=== PATIENT | male | born 1965 | race Caucasian/White ===

== ENCOUNTER 2023-06-27 18:56 | Emergency (ER) | payer BC, OTHER ==
[~2023-06-27] VITALS: Ht 170.2 cm; Wt 70.4 kg
[2023-06-27] MEDS ORDERED: KETOROLAC TROMETH 30 MG/ML 1ML VIAL IV ONE (19:15)
[2023-06-27] MEDS ORDERED: METOCLOPRAMIDE HCL 5MG/ml INJ 2ml VIAL IV ONE (19:15)
[2023-06-27] MEDS ORDERED: SODIUM CHLORIDE 0.9% 1,000 ML IVB ONE (19:15)
[2023-06-27 19:46] LABS: Basophils # (auto) 0.1 10 ^3/uL (0-0.2); Eosinophils # (auto) 0.1 10 ^3/uL (0-0.8); Eosinophils % (auto) 0.8 % (0.0-7.0); White Blood Cell 8.1 10^3/uL (4.4-10.8)
[2023-06-27 19:48] LABS: Basophils % (auto) 1.3 % (0.0-2.0); Hematocrit 24.1 % (41.0-53.0); Lymphocytes # (auto) 1.6 10 ^3/uL (0.4-5.4); Lymphocytes % (auto) 19.2 % (10.0-50.0); Mean Corpuscular Hemoglobin 16.4 pg (28.0-32.0); Mean Corpuscular Hgb Conc. 28.4 g/dL (32.0-36.0); Mean Corpuscular Volume 57.7 fL (80.0-100.0); Monocytes # (auto) 0.7 10 ^3/uL (0-1.3); Neutrophils # (auto) 5.7 10 ^3/uL (1.6-8.6); Neutrophils % (auto) 70.7 % (37.0-80.0); Nucleated Red Blood Cells % 0.1 %; Red Blood Cells 4.17 10^6/uL (4.5-5.90); Red Cell Distribution Width 19.5 % (11.8-14.3)
[2023-06-27 19:54] LABS: Hemoglobin 6.8 g/dL (13.5-17.5)
[2023-06-27 20:06] LABS: Alanine Aminotransferase 12 U/L (7-40); Albumin 4.3 g/dL (3.2-4.8); Alkaline Phosphatase 69 U/L (46-116); Anion Gap 6 (5-15); Aspartate Aminotransferase 22 U/L (13-40); BUN/Creatinine Ratio 20.7 (10.0-20.0); Blood Urea Nitrogen 18 mg/dL (9-23); Calcium 9.4 mg/dL (8.7-10.4); Carbon Dioxide 25 mmol/L (20-30); Chloride 108 mmol/L (98-107); Glucose 92 mg/dL (74-106); INR 1.08 (0.9-1.15); Lipase 49 U/L (12-53); Partial Thromboplastin Time 23.2 SEC (24.5-34.5); Potassium 4.3 mmol/L (3.5-5.1); Prothrombin Time 11.3 sec (9.3-11.8); Sodium 139 mmol/L (136-145)
[2023-06-27 20:07] LABS: Bilirubin, Total 0.3 mg/dL (0.2-1.0); Total Protein 6.7 g/dL (5.7-8.2)
[2023-06-27] MEDS ORDERED: MORPHINE SULFATE INJ 2 MG/ml SYRG IV ONE ×2 (20:15→23:30)
[2023-06-27 20:24] LABS: Anisocytosis Slight; Platelet Estimate Increased
[2023-06-27 20:25] LABS: Hypochromia Marked; Ovalocytes FEW; Tear Drop Cells FEW
[2023-06-27] MEDS ORDERED: PIPERACILLIN-TAZOB 3.375GM 100 ML IV ONE (20:45)
[2023-06-27 21:31] VITALS: PULSE 65; RESP 12; O2SAT 100
[2023-06-27] MEDS ORDERED: MORPHINE SULFATE 4 MG/ML SYR/VIAL IV ONE (23:15)
[2023-06-27] MEDS ORDERED: ONDANSETRON HCL 4 MG/2 ML VIAL IV ONE (23:15)
[2023-06-28] VITALS (13 sets, daily range): BP systolic 94–107; BP diastolic 52–66; PULSE 53–65; RESP 9–20; TEMP 97.8–98.3; O2SAT 96–98
[2023-06-28] MEDS ORDERED: MORPHINE SULFATE INJ 2 MG/ml SYRG IV ONE (06:15)
[2023-06-28] MEDS ORDERED: ONDANSETRON HCL 4 MG/2 ML VIAL IV ONE (06:15)
[2023-06-28] MEDS ORDERED: ONDANSETRON HCL 4 MG/2 ML VIAL IV PRN (08:45)
[2023-06-28] MEDS ORDERED: MORPHINE SULFATE INJ 2 MG/ml SYRG IV PRN (08:45)
[2023-06-28] MEDS ORDERED: SODIUM CHLORIDE 0.9% 1,000 ML IV ONE ×2 (08:45)
[2023-06-28] MEDS ORDERED: HYDROcodone-ACET 5/325MG TAB PO ONE (11:00)
== END 2023-06-28 11:15 | disposition short-term general hospital (02) ==
LOC: ER 18:56
DX: K56.609 Unspecified intestinal obstruction, unspecified as to partial versus complete obstruction (principal); Z98.84 Bariatric surgery status
CPT/HCPCS: 36415; 36430; 74176; 80053; 82270; 83605; 83690; 84484; 85025; 85610; 85730; 86850; 86900; 86901; 86920; 96361; 96365; 96366; 96375; 96376; 99285; J1885; J2270; J2405; J2543; J2765; P9016

== ENCOUNTER → 2023-08-11 | Emergency (ER) | payer BC | END | disposition left against medical advice (07) | LOC: ER 17:05 | DX: R39.198 Other difficulties with micturition (principal); Z53.21 Procedure and treatment not carried out due to patient leaving prior to being seen by health care provider ==

== ENCOUNTER 2024-03-07 15:12 | Emergency (ER) | payer BC, MEDICARE ==
[~2024-03-07] VITALS: Ht 170.2 cm; Wt 88.0 kg
[~2024-03-07 15:12] MED LIST: BUPR200T49 PO; BUSP7.5T8 PO; CYCL-614 PO; HYDR-4072 PO; PANT40T PO; TERB250T92 PO; TOPI50TA53 PO
[2024-03-07 16:28] VITALS: BP 122/86; PULSE 75; RESP 18; TEMP 98.9; O2SAT 100
== END 2024-03-07 16:31 | disposition home or self-care (01) ==
LOC: ER 15:12
DX: S62.114A Nondisplaced fracture of triquetrum [cuneiform] bone, right wrist, initial encounter for closed fracture (principal); Z98.890 Other specified postprocedural states; Z87.442 Personal history of urinary calculi; W01.0XXA Fall on same level from slipping, tripping and stumbling without subsequent striking against object, initial encounter; Y93.89 Activity, other specified; Y92.89 Other specified places as the place of occurrence of the external cause; Y99.8 Other external cause status
CPT/HCPCS: 29125; 73110

== ENCOUNTER 2024-09-18 07:23 | Emergency (ER) | payer BC ==
[~2024-09-18] VITALS: Ht 170.2 cm; Wt 85.7 kg
[2024-09-18 08:02] VITALS: BP 119/62; PULSE 72; RESP 21; TEMP 98.6; O2SAT 98
--- NOTE | 2024-09-18 08:26 | ED.PDOC ---
Musculoskeletal HPI Comments A 58 YEAR OLD MALE PRESENTS TO THE ED WITH CHIEF COMPLAINT OF LEFT SHOULDER PAIN. PATIENT REPORTS THAT HE HAS BEEN EXPERIENCING LEFT SHOULDER PAIN AFTER PULLING ON A FENCE POST YESTERDAY. PATIENT RELAYS THAT HE ISN'T ABLE TO LIFT HIS ARM AND BELIEVES HE MAY HAVE INJURED HIS ROTATOR CUFF AND HE HAD A SIMILAR INJURY TO THE RIGHT ROTATOR CUFF THAT REQUIRED SURGICAL CORRECTION. PATIENT DENIES ANY NUMBNESS, WEAKNESS, FALL, HEAD INJURY, OR ARM PAIN. NO FURTHER COMPLAINTS OR SYMPTOMS DURING TREATMENT. Chief Complaint: Upper Extremity Time Seen by MD: 08:21 Primary Care Provider: STACEY Villegas Notes: Nurses Notes, Medications, Allergies Allergies: Coded Allergies: NO KNOWN ALLERGIES (Unverified , 09/04/23) Home Meds Reported Medications Terbinafine Hcl (Terbinafine Hcl) 250 Mg Tab, 1 TAB PO UD 09/04/23 Hydrocodone-Acetaminophen (Hydrocodone/Acetaminophen 10-325 mg) 1 Tab Tab, 1 TAB PO Q6HP PRN for PAIN SCALE 7 THRU 10, TAB 09/04/23 Bupropion Hcl (Bupropion Hcl Er) 200 Mg Tab, 1 TAB PO BID 09/04/23 Topiramate (Topiramate) 50 Mg Tab, 1 TAB PO BID 09/04/23 Cyclobenzaprine HCl (Cyclobenzaprine Hydrochlo) 5 Mg Tab, 1 TAB PO DAILYP PRN 09/04/23 Buspirone Hcl (Buspirone Hcl) 7.5 Mg Tab, 1 TAB PO BID 09/04/23 Pantoprazole Sodium Sesquihydr (Pantoprazole Sodium) 40 Mg Tab, 1 TAB PO BID 09/04/23 Information Source: Patient Mode of Arrival: Ambulatory Location: Left Extremity Location: Shoulder Timing: Days Prehospital treatment: None Severity: Moderate Able to Move Extremity: No Bear Weight: Fully Pain: Moderate Mechanism: Hyperextension Circumstances: Spontaneous Onset of Symptoms: After Exercise Symptoms: Pain DVT Risk Factors: NONE Last Tetanus: UTD History of: Shoulder Operation Associated signs and symptoms: Shoulder pain Past Medical History PAST MEDICAL HISTORY: Kidney Stones Surgical History: Hernia Repair Surgical History (Other): RT ROTATOR CUFF SURGERY Family History Family History: Reviewed,noncontributory to illness Social History Smoker: Non-Smoker Alcohol: Denies ETOH Use Drugs: Denies Drug Use Lives In: Home Constitutional: denies: chills, diaphoresis, fatigue, fever, malaise, sweats, weakness, others EENTM: denies: blurred vision, double vision, ear bleeding, ear discharge, ear drainage, ear pain, ear ringing, eye pain, eye redness, hearing loss, mouth pain, mouth swelling, nasal discharge, nose bleeding, nose congestion, nose pain, photophobia, tearing, throat pain, throat swelling, voice changes, others Respiratory: denies: cough, hemoptysis, orthopnea, SOB at rest, shortness of breath, SOB with excertion, stridor, wheezing, others Cardiovascular: denies: chest pain, dizzy spells, diaphoresis, Dyspnea on exertion, edema, irregular heart beat, left arm pain, lightheadedness, palpitations, PND, syncope, others Gastrointestinal: denies: abdomen distended, abdominal pain, blood streaked bowels, constipated, diarrhea, dysphagia, difficulty swallowing, hematemesis, melena, nausea, poor appetite, poor fluid intake, rectal bleeding, rectal pain, vomiting, others Genitourinary: denies: burning, dysuria, flank pain, frequency, hematuria, incontinence, penile discharge, penile sore, pain, testicle pain, testicle swelling, urgency, others Neurological: denies: dizziness, fainting, headache, left sided numbness, left sided weakness, numbness, paresthesia, pre-existing deficit, right sided numbness, right sided weakness, seizure, speech problems, tingling, tremors, weakness, others Musculoskeletal: reports: joint pain, muscle pain, others (LEFT SHOULDER PAIN); denies: back pain, gout, joint swelling, muscle stiffness, neck pain Integumetry: denies: bruises, change in color, change in hair/nails, dryness, laceration, lesions, lumps, rash, wounds, others Allergic/Immunocompromised: denies: Difficulty Healing, Frequent Infections, Hives, Itching, others Hematologic/Lymphatic: denies: anemia, blood clots, easy bleeding, easy bruising, swollen glands, others Endocrine: denies: excessive hunger, excessive sweating, excessive thirst, excessive urination, flushing, intolerance to cold, intolerance to heat, unexplained weight gain, unexplained weight loss, others Psychiatric: denies: anxiety, bipolar disorder, depression, hopeless, panic disorder, schizophrenia, sleepless, suicidal, others All Other Systems: Reviewed and Negative Physical Exam General Appearance: No Apparent Distress, Normal HEENT: Normal ENT Inspection, PERRL/EOMI Neck: Full Range of Motion, Non-Tender, Normal, Normal Inspection Respiratory: Chest Non-Tender, Lungs Clear, No Accessory Muscle Use, No Respiratory Distress, Normal Breath Sounds Cardiovascular: No Edema, No JVD, No Murmur, No Gallop, Normal Peripheral Pulses, Regular Rate/Rhythm Breast Exam: Deferred Gastrointestinal: No Organomegaly, Non Tender, No Pulsatile Mass, Normal Bowel Sounds, Soft Genitalia: Deferred Pelvic: Deferred Rectal: Deferred Extremities: Decreased range of motion, No calf tenderness, Normal capillary refill, Normal inspection, No pedal edema, Tender (LEFT SHOULDER, NO BONY TE NDERNESS, SWELLING AND DEFORMITY. ROM DECREASING. ) Musculoskeletal : Apperance: Normal Neurologic: Alert, doctor of naturopathic medicine II-XII nml as Tested, No Motor Deficits, Normal Affect, Normal Mood, No Sensory Deficits Cerebellar Function: Normal Reflexes: Normal Skin: Dry, Normal Color, Warm Peripheral Pulses: 2+ carotid (R), 2+ carotid (L) Lymphatic: No Adenopathy Was a procedure done? Was a procedure done?: No Differential Diagnosis EXT Differential Diagnosis: Fracture, Sprain, Dislocation, Contusion, Strain, Bursitis X-Ray, Labs, Meds, VS Vital Signs Date Time Temp Pulse Resp B/P (MAP) Pulse Ox O2 Delivery O2 Flow Rate FiO2 09/18/24 08:02 98.6 72 21 119/62 (81) 98 98.6 09/18/24 08:02 72 21 98 Room Air 09/18/24 07:55 98.6 72 21 119/62 (81) 98 98.6 X-Ray, Labs, Meds, VS Comment EXTERNAL MEDICAL RECORDS REVIEWED: 03/07/24 FRACTURE OF RT WRIST INDEPENDENT HISTORIANS: [NONE] SOCIAL DETERMINANTS OF HEALTH: [NONE] LABS ORDERED: NONE REVIEWED AND INTERPRETED RESULTS: LEFT SHOULDER XR INTERPRETED BY ME. NO ACUTE FINDINGS. NO FRACTURES OR DISLOCATION. PENDING RADIOLOGIST REPORT. IMAGING ORDERED: LT SHOULDER XR TREATMENTS ORDERED: PT DECLINED PAIN MEDICATION AND RX. HE HAS PAIN MEDICATION AT HOME. PROCEDURES PERFORMED: NONE CRITICAL CARE TIME: NONE I HAVE DISCUSSED THE PATIENT WITH THE ATTENDING PHYSICIAN DR. MCKENZIE AND HE AGREES WITH THE PATIENT'S PLAN OF CARE AND DISPOSITION. BASED ON HISTORY OF PRESENT ILLNESS, AND PHYSICAL EXAM, PATIENT WILL BE DISCHARGED HOME. DISCUSSED PLAN FOR DISCHARGE HOME. SHARED DECISION MAKING: DISCUSSED WITH PATIENT THAT THEIR WORKUP WAS NORMAL. PATIENT INSTRUCTED TO FOLLOW UP WITH PRIMARY CARE PROVIDER IN 1-2 DAYS FOR RE- EVALUATION OF SYMPTOMS. PATIENT VERBALIZES UNDERSTANDING TO RETURN TO ED FOR NEW OR WORSENING SYMPTOMS OR IF FOLLOW UP WITH PCP CANNOT BE OBTAINED. PATIENT FEELS COMFORTABLE GOING HOME AT THIS TIME. ALL QUESTIONS ADDRESSED AT TIME OF DISCHARGE. Images Reviewed?: Images reviewed and evaluated by me Time of 1ST Reevaluation: 08:35 Reevaluation 1ST: Unchanged Patient Education/Counseling: Diagnosis, Treatment, Need For Follow Up Family Education/Counseling: Diagnosis, Treatment, No Family Present Medical Screening: No EMC Exist At This Time Departure 1 Departure Time of Disposition: 08:36 Impression: Primary Impression: Internal derangement of left shoulder Disposition: 01 HOME / SELF CARE / HOMELESS Condition: Stable Additional Instructions: FOLLOW-UP WITH PCP IN 1 TO 2 DAYS. TAKE MEDICATIONS PRESCRIBED. RETURN TO ED FOR ANY NEW OR WORSENING SYMPTOMS. Discharged With: Self Critical Care Note Critical Care Time?: No Stability Stability form required: No Heart Score Heart Score: Heart Score Response (Comments) Value History N/A 0 EKG N/A 0 Age N/A 0 Risk Factors N/A 0 Troponin N/A 0 Total 0 I personally scribed for LISSETTE SUMMERS ([email or web address]) on 09/18/24 at 08:26. Electronically submitted by Lg Peters ([email or web address]). I personally scribed for LISSETTE SUMMERS ([email or web address]) on 09/18/24 at 08:29. Electronically submitted by Lg Peters ([email or web address]). I personally scribed for LISSETTE SUMMERS ([email or web address]) on 09/18/24 at 08:31. Electronically submitted by Lg Peters ([email or web address]). LISSETTE SUMMERS Sep 18, 2024 08:26
--- NOTE | 2024-09-18 08:44 | DVH ---
CLINICAL INDICATION: Trauma TECHNIQUE: 3 radiographic views of the left shoulder were obtained. Comparison: None FINDINGS/IMPRESSION: There is no evidence of acute fracture or dislocation. The visualized joint space is well maintained. The alignment is anatomical. There is no radiopaque foreign body.
== END 2024-09-18 08:40 | disposition home or self-care (01) ==
LOC: ER 07:23
DX: M24.812 Other specific joint derangements of left shoulder, not elsewhere classified (principal); Z98.890 Other specified postprocedural states; Z79.899 Other long term (current) drug therapy
CPT/HCPCS: 73030

== ENCOUNTER 2024-12-20 23:52 | Inpatient (IN) | payer BC, MEDICARE ==
[~2024-12-20] VITALS: Ht 170.2 cm; Wt 89.3 kg
[2024-12-21] VITALS (9 sets, daily range): BP systolic 102–123; BP diastolic 50–74; PULSE 50–80; RESP 14–18; TEMP 97.8–98.3; O2SAT 95–97
[2024-12-21] MEDS: SODIUM CHLORIDE 0.9% 1,000 ML IVB ONE (00:15)
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
[2024-12-21 00:36] LABS: Hematocrit 32.8 % (41.0-53.0); Hemoglobin 10.5 g/dL (13.5-17.5); Mean Corpuscular Hemoglobin 22.7 pg (28.0-32.0); Mean Corpuscular Volume 71.0 fL (80.0-100.0); Nucleated Red Blood Cells % 0.0 %
[2024-12-21] MEDS: IOHEXOL 300 MG/ML 100ML BOTTLE IJ ONE (00:49)
[2024-12-21 00:57] LABS: Alanine Aminotransferase 14 U/L (7-40); Albumin 4.5 g/dL (3.2-4.8); Alkaline Phosphatase 95 U/L (46-116); Anion Gap 10 (5-15); BUN/Creatinine Ratio 27.8 (10.0-20.0); Calcium 8.7 mg/dL (8.7-10.4); Carbon Dioxide 23 mmol/L (20-31); Glucose 99 mg/dL (74-106); Lipase 50 U/L (12-53); Potassium 4.3 mmol/L (3.5-5.1); Sodium 141 mmol/L (136-145); Total Protein 7.0 g/dL (5.7-8.2)
[2024-12-21 00:58] LABS: Bilirubin, Total 0.3 mg/dL (0.2-1.0); Blood Urea Nitrogen 25 mg/dL (9-23); Chloride 108 mmol/L (98-107)
[2024-12-21] MEDS: ONDANSETRON HCL 4 MG/2 ML VIAL IV ONE (01:18)
[2024-12-21] MEDS: HYDROmorphone HCL 2 MG/ML VL/or syr IV ONE (01:28)
--- NOTE | 2024-12-21 01:41 | DVH ---
Exam: CT CT AB PEL WITH IV CON ONLY History: abd pain COMPARISON: None Technique: Multidetector spiral CT of the abdomen and pelvis was performed from lung bases to pubic s ymphysis. Intravenous contrast was administered during this examination. Portal venous imaging was obtained. Axial, coronal and sagittal multiplanar reformats were performed by the technologist on a separate workstation. Radiation Dose : 1. Abdomen/Pelvis: CTDIvol 18 mGy, DLP 1137 mGy*cm. CONTRAST: Type of contrast: Omnipaque Contrast injected: 100 ml Findings: Lung Bases: No acute or significant lung base finding. Normal heart size. No pleural or pericardial effusion. Liver: The liver is normal in size. No focal lesions. Normal hepatic vascular enhancement. Gallbladder and Biliary Tree: Unremarkable Spleen: Unremarkable Pancreas: The pancreas is normal in appearance without focal lesions or abnormal enhancement. Adrenal Glands: Unremarkable Kidneys: No hydronephrosis. Bladder: Unremarkable Bowel: Patulous esophagus. Postsurgical changes are seen around the stomach. Multiple dilated loops o f small bowel are seen in the abdomen with probable transition point at the level of a large ventral hernia in the lower midline abdomen. The appendix is not visualized; however, no secondary findings of acute appendicitis identified. Ascites: Absent Lymphadenopathy: No mesenteric, retroperitoneal or periportal lymphadenopathy. Abdominal Wall and Mesentery: Large ventral hernia in the lower midline abdomen which contains multip le dilated loops of small bowel. Postsurgical mesh is seen throughout the anterior abdominal wall. Vasculature: The visualized abdominal aorta is normal in size and caliber. Abdominal and pelvic vess els demonstrate normal enhancement. Pelvic Organs: Unremarkable Musculoskeletal: No aggressive focal bony lesions, acute fractures or dislocation. IMPRESSION: 1. Small-bowel obstruction with probable transition point at the level of the large ventral hernia in the lower midline abdomen. Radiation optimization: All CT scans at this facility use at least one of these dose optimization diego hniques: automated exposure control mA and/or kV adjustment per patient size (includes targeted exam s where dose is matched to clinical indication) or iterative reconstruction.
--- NOTE | 2024-12-21 02:19 | DVHHPRES ---
History of Present Illness Resident Creating Document: OSMAR LLANES RESIDENT History of Present Illness Neal Brooks is a 59 year-old male patient past medical history of anxiety, depression kidney stone, iron-deficiency anemia restless leg syndrome, multiple abdominal surgery for ventral hernia repair, Daniela-en-Y gastric bypass surgery, status post stent for enteral stricture into the ED with a complaint of diffuse abdominal pain predominantly in the infraumbilical area since 8:00 p.m. with nausea and vomiting and 2 episodes of diarrhea. Patient stated that he was completely or light and had an normal bowel movement in the morning after that few 2 episodes of diarrhea and started having diffuse abdominal pain which is colicky in nature 10 out of 10 localized associated with frequent vomiting every 20 minutes, contains the food material, nausea getting worse that prompted this visit. Denies chest pain, shortness of breath, palpitation, blurred vision, dysuria, hematuria or any recent traveling history. Past medical history: Depression, UTIs, kidney stones, iron deficient anemia, anxiety, depression, restless leg syndrome, ventral hernia repair in 16 opportunities last surgery done in 2006 which required removal of mesh due to MRSA infection, have not resolved hernia since patient was morbidly obese, hence Daniela-en-Y gastric bypass was indicated before completing new surgery (weight in 2017 325 pounds, currently weighs 190 pounds). stricture and gastro ileal anastomosis with placement of stent in May 2023, new distal enteral stricture with placement of stent in 12/2023 Surgical history: Hernia repair in 16 opportunities, Daniela-en-Y gastric bypass, stent placement and gastric ileal anastomosis on 05/2023 and 12/2023 Family history: Noncontributory Social history: Denies tobacco, alcohol and other drug abuse Allergies: Denies Home medication: Bupropion 200 mg p.o. twice daily, buspirone 7.5 mg p.o. twice daily, cyclobenzaprine 5 mg p.o. daily as needed, hydrocodone as needed, pantoprazole 40 mg twice daily, terbinafine 250 mg p.o. daily, topiramate 50 mg p.o. twice daily. PCP: Dr. Vargas Past Medical History Depression, UTIs, kidney stones, iron deficient anemia, anxiety, depression, restless leg syndrome, Past Surgical History Hernia repair in 16 opportunities, Daniela-en-Y gastric bypass, stent placement and gastric ileal anastomosis on 05/2023 and 12/2023 Family History Recently daughter diagnosed with Omar-Danlos syndrome by genetic testing. Past Social History Lives with family Nonsmoker, nonalcoholic and never tried any drugs Review of Systems Constitutional: No: Fever, Chills, Sweats, Weakness, Malaise, Other Eyes: No: Pain, Vision change, Conjunctivae inflammation, Eyelid inflammation, Other, Redness ENT: No: Ear pain, Ear discharge, Nose pain, Nose discharge, Nose congestion, Mouth pain, Mouth swelling, Throat pain, Throat swelling, Other Respiratory: No: Cough, Dry, Shortness of breath, SOB with excertion, Wheezing, Hemoptysis, Pleuritic Pain, Sputum, Wheezing, Other Cardiovascular: No: Chest Pain, Palpitations, Orthopnea, Paroxysmal Noc. Dyspnea, Edema, Lt Headedness, Other Gastrointestinal: Nausea, Vomiting, Abdominal Pain, Diarrhea; No: Constipation, Melena, Hematochezia, Other Genitourinary: No Dysuria, No Frequency, No Incontinence, No Hematuria, No Retention, No Other Musculoskeletal: No: other, neck pain, shoulder pain, arm pain, back pain, hand pain, leg pain, foot pain Skin: No: Rash, Lesions, Jaundice, Bruising, Other Neurological: No: Weakness, Numbness, Incoordination, Change in speech, Confusion, Seizures, Other Allergies: Coded Allergies: NO KNOWN ALLERGIES (Unverified , 09/04/23) Exam Vital Signs Vital Signs Date Time Temp Pulse Resp B/P (MAP) Pulse Ox O2 Delivery O2 Flow Rate FiO2 12/21/24 01:28 74 18 120/64 12/21/24 01:22 98.0 97 98.0 Exam Physical examination: General Appearance: Alert, Oriented X3, Cooperative, No acute distress HEENT: Atraumatic, PERRLA, EOMI, Mucous membrane moist/pink Respiratory: Clear to auscultation, Normal air movement Cardiovascular: Regular rate, Normal S1, Normal S2, No murmurs, no chest wall tenderness Abdominal: 2 Large ventral hernias, midline laparotomy incision brian from previous surgery, sluggish bowel sounds, Soft, No tenderness, No hepatospenomegaly. Extremities: No clubbing, No cyanosis, No edema, Normal pulses, No tenderness/swelling Skin: No rashes, No breakdown, No significant lesion Neuro: Normal gait, Normal speech, Strength at 5/5 X4 ext, Normal tone, Sensation intact, Cranial nerves 3-12 NL, Reflexes 2+ Psych/Mental Status: Mental status NL, Mood NL Labs/Xrays Labs Test 12/21/24 00:23 Range/Units White Blood Count 6.6 4.4-10.8 10^3/uL Red Blood Count 4.61 4.5-5.90 10^6/uL Hemoglobin 10.5 L 13.5-17.5 g/dL Hematocrit 32.8 L 41.0-53.0 % Mean Corpuscular Volume 71.0 L 80.0-100.0 fL Mean Corpuscular Hemoglobin 22.7 L 28.0-32.0 pg Mean Corpuscular Hemoglobin Concent 31.9 L 32.0-36.0 g/dL Red Cell Distribution Width 18.6 H 11.8-14.3 % Platelet Count 400 140-450 10^3/uL Mean Platelet Volume 7.5 6.9-10.8 fL Neutrophils (%) (Auto) 79.2 37.0-80.0 % Lymphocytes (%) (Auto) 13.1 10.0-50.0 % Monocytes (%) (Auto) 5.8 0.0-12.0 % Eosinophils (%) (Auto) 0.4 0.0-7.0 % Basophils (%) (Auto) 1.5 0.0-2.0 % Neutrophils # (Auto) 5.3 1.6-8.6 10 ^3/uL Lymphocytes # (Auto) 0.9 0.4-5.4 10 ^3/uL Monocytes # (Auto) 0.4 0-1.3 10 ^3/uL Eosinophils # (Auto) 0 0-0.8 10 ^3/uL Basophils # (Auto) 0.1 0-0.2 10 ^3/uL Nucleated Red Blood Cells 0.0 % Sodium Level 141 136-145 mmol/L Potassium Level 4.3 3.5-5.1 mmol/L Chloride Level 108 H 98-107 mmol/L Carbon Dioxide Level 23 20-31 mmol/L Anion Gap 10 5-15 Blood Urea Nitrogen 25 H 9-23 mg/dL Creatinine 0.90 0.700-1.30 mg/dL Glomerular Filtration Rate Calc 97 >90 mL/min BUN/Creatinine Ratio 27.8 H 10.0-20.0 Serum Glucose 99 74-106 mg/dL Calcium Level 8.7 8.7-10.4 mg/dL Total Bilirubin 0.3 0.2-1.0 mg/dL Aspartate Amino Transferase (AST) 36 13-40 U/L Alanine Aminotransferase (ALT) 14 7-40 U/L Alkaline Phosphatase 95 46-116 U/L Total Protein 7.0 5.7-8.2 g/dL Albumin 4.5 3.2-4.8 g/dL Lipase 50 12-53 U/L SEPSIS Sepsis Screen Date sepsis recognized/suspect: Dec 21, 2024 Time Sepsis recognized/suspect: 2354 Recent Procedure: No On Antibiotic Therapy: No Respiratory Rate >20: No Heart Rate >90: Yes Temp<36 C (96.8 F) or >38.3 C: No SBP <90 or MAP <65 mmHG: No New Acute Mental Status Change: No Is the patient on CPAP, BIPAP,: No Physician Orders Ct Ab Pel With Iv Con Only (12/21/24 00:14) Ng To Lis (12/21/24 01:46) Vital Signs Date Time Temp Pulse Resp B/P (MAP) Pulse Ox O2 Delivery O2 Flow Rate FiO2 12/21/24 01:28 74 18 120/64 12/21/24 01:22 98.0 67 18 120/64 (82) 97 98.0 12/21/24 00:03 98.1 96 18 125/80 (95) 98 98.1 Laboratory Tests Test 12/21/24 00:23 White Blood Count 6.6 10^3/uL (4.4-10.8) Medications Medications Dose Ordered Sig/Gabe Route Start Time Stop Time Status Last Admin Dose Admin Hydromorphone HCl 1 mg ONCE ONCE IV 12/21/24 00:15 12/21/24 00:16 DC 12/21/24 01:28 1 MG Ondansetron HCl 4 mg ONCE ONCE IV 12/21/24 00:15 12/21/24 00:16 DC 12/21/24 01:18 4 MG Sodium Chloride 1,000 ml @ 1,000 mls/hr Q1H ONCE IVB 12/21/24 00:15 12/21/24 01:14 DC 12/21/24 00:15 1,000 MLS/HR Assessment/Plan Assessment/Plan Assessment and plan: # Small-bowel obstruction likely secondary to adhesions from previous multiple abdominal surgeries # Multiple failed ventral hernia repair with mesh # Recent diagnosis of Ehler Danlos syndrome in daughter, probable inheritance from biological father # Multiple recurrence of ventral 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 - IV ceftriaxone 1 g daily and IV metronidazole 500 mg Q 8 hours - surgical consultation # Chronic iron-deficiency anemia secondary to nutritional deficiency # History of Daniela-en-Y gastric bypass surgery - Ordered iron panel, ferritin # PUD prophylaxis - Protonix 40 mg IV daily # DVT prophylaxis - Not indicated as patient is mobile. Goal of care discussed with the patient for more than 20 minutes full code Plan discussed with Dr. Roach Plan discussed with: Patient, Other (RN) Date of Service: Dec 21, 2024 Billing Provider: EDUIN ROACH MD Common Visit Codes: [id number] INP/OBS CARE (HIGH) OSMAR LLANES RESIDENT Dec 21, 2024 02:19
[2024-12-21] MEDS: SODIUM CHLORIDE 0.9% 1,000 ML IV SCH (03:10)
[2024-12-21 03:24] LABS: INR 0.97 (0.9-1.15); Partial Thromboplastin Time 26.5 SEC (24.5-34.5); Prothrombin Time 10.3 sec (9.3-11.8)
--- NOTE | 2024-12-21 03:42 | DVH ---
CHEST RADIOGRAPH Indication: chest pain Technique: Single frontal view of the chest was obtained COMPARISON: None FINDINGS: Lines and Tubes: None Lungs: Clear Pleura: No effusion. No pneumothorax. Cardiomediastinal contours: Unremarkable Bones: Unremarkable IMPRESSION: 1. No acute disease.
[2024-12-21 04:12] LABS: Total Iron Binding Capacity 400.0 ug/dL (250-425)
[2024-12-21 04:14] LABS: Iron 21.0 ug/dL (65-175)
[2024-12-21] MEDS: ONDANSETRON HCL 4 MG/2 ML VIAL IV PRN (04:50)
[2024-12-21] MEDS: MORPHINE SULFATE INJ 2 MG/ml SYRG IV PRN (04:57)
[2024-12-21] MEDS ORDERED: ONDANSETRON HCL 4 MG/2 ML VIAL IV SCH (06:00)
[2024-12-21] MEDS ORDERED: MORPHINE SULFATE INJ 2 MG/ml SYRG IV ONE (06:00)
[2024-12-21] MEDS ORDERED: SPIR25TA8 PO (06:46)
[2024-12-21] MEDS: PANTOPRAZOLE 40 MG/10 ML VIAL INJ IV SCH (09:56)
[2024-12-21] MEDS: cefTRIAXone 1GM/50ML D5W 50 ML IV SCH (09:57)
[2024-12-21] MEDS: IRON SUCROSE COMPLEX 110 ML IV ONE (12:36)
--- NOTE | 2024-12-21 15:12 | DVHPNRES ---
Progress Note Date Seen: Dec 21, 2024 Resident Creating Document: YANELIS SARAVIA RESIDENT Medical Necessity Reason Pt with a Central, PICC or Fol: No Subjective Review of Systems Neal Brooks is a 57-year-old male patient past medical history of anxiety, depression kidney stone, iron-deficiency anemia restless leg syndrome, multiple abdominal surgery for ventral hernia repair, Daniela-en-Y gastric bypass surgery, status post stent for enteral stricture. He presented to the ER with a complaint of diffuse abdominal pain predominantly in the infraumbilical area. Associated with nausea and vomiting and 2 episodes of diarrhea. Complains of diffuse abdominal pain which is colicky in nature 10 out of 10 localized associated with frequent vomiting every 20 minutes, contains the food material, and worsening of nausea nausea prompted this visit. Denies chest pain, shortness of breath, palpitation, blurred vision, dysuria, hematuria or any recent traveling history. A CT scan of abdomen was done which showed small- bowel obstruction with transition point at the level of large ventral hernia. He reports 15 episodes of small-bowel obstruction in the past. His labs revealed anemia. He was examined at bedside today. He reports of abdominal pain, without any episodes of vomiting or diarrhea today. Last night, he vomited 8-10 times. He complains of cramps in his legs. Today, he is passing gas. Past medical history: Depression, UTIs, kidney stones, iron deficient anemia, anxiety, depression, restless leg syndrome, ventral hernia repair in 16 opportunities last surgery done in 2006 which required removal of mesh due to MRSA infection, have not resolved hernia since patient was morbidly obese, hence Daniela-en-Y gastric bypass was indicated before completing new surgery (weight in 2017 325 pounds, currently weighs 190 pounds). stricture and gastro ileal anastomosis with placement of stent in May 2023, new distal enteral stricture with placement of stent in 12/2023. Ehler Danos syndrome. Surgical history: Hernia repair in 16 opportunities, Daniela-en-Y gastric bypass, stent placement and gastric ileal anastomosis on 05/2023 and 12/2023 Social history: Denies tobacco, alcohol and other drug abuse ROS: Constitutional: Denies weight loss, fever and chills. HEENT: Denies changes in vision and hearing. Respiratory: Denies shortness of breath and cough Cardiovascular: Denies chest discomfort or palpitations GI: Abdominal pain, nausea, vomiting and diarrhea on admission. : Denies dysuria and urinary frequency. Musculoskeletal: Leg cramps bilateral lower limb Skin: Denies rash and pruritus. Neurological: Denies dizziness, headache, vision or hearing problems Objective vital signs Vital Sign Date Time Temp Pulse Resp B/P (MAP) Pulse Ox O2 Delivery O2 Flow Rate FiO2 12/21/24 15:06 76 16 136/77 12/21/24 12:51 97.8 97 97.8 12/21/24 07:57 Room Air* 0 21 medications Current Medications Medications Dose Ordered Sig/Gabe Route Start Time Stop Time Status Last Admin Dose Admin Sodium Chloride 1,000 ml @ 100 mls/hr Q10H IV 12/21/24 02:30 12/21/24 03:10 100 MLS/HR Pantoprazole Sodium 40 mg DAILY IV 12/21/24 10:00 12/21/24 09:56 40 MG Ceftriaxone Sodium 50 ml @ 100 mls/hr DAILY IV 12/21/24 10:00 12/21/24 09:57 100 MLS/HR Metronidazole 100 ml @ 100 mls/hr Q8HR IV 12/21/24 06:00 12/21/24 14:34 100 MLS/HR Morphine Sulfate 2 mg Q4HPRN PRN IV 12/21/24 04:30 12/21/24 15:06 2 MG Ondansetron HCl 4 mg Q8HPRN PRN IV 12/21/24 04:30 12/21/24 04:50 4 MG Examination General Appearance: Alert, Oriented X3, Cooperative, No acute distress HEENT: Atraumatic, PERRLA, EOMI, Mucous membrane moist/pink Respiratory: Clear to auscultation, Normal air movement Cardiovascular: Regular rate, Normal S1, Normal S2, No murmurs, no chest wall tenderness Abdominal: Soft abdomen with peristaltic movements seen through hernias; 2 Large ventral hernias, midline laparotomy incision brian from previous surgery. No tenderness, No hepatospenomegaly. Extremities: No clubbing, No cyanosis, No edema, Normal pulses, No tenderness/swelling Skin: No rashes, No breakdown, No significant lesion Neuro: Normal gait, Normal speech, Strength at 5/5 X4 ext, Normal tone, Sensation intact, Cranial nerves normal Psych/Mental Status: Mental status NL, Mood NL laboratory and microbiology Laboratory Tests 12/21/24 00:23 Test 12/21/24 00:23 Range/Units Serum Glucose 99 74-106 mg/dL Labs and/or images reviewed: Labs reviewed by me, Image(s) reviewed by me Problem List/Assessment/Plan Problem List/Assessment/Plan # Small-bowel obstruction likely secondary to adhesions from previous multiple abdominal surgeries # Multiple failed ventral hernia repair with mesh # Recent diagnosis of Ehler Danlos syndrome in daughter, probable inheritance from biological father # Multiple recurrence of ventral hernia 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 - IV ceftriaxone 1 g daily and IV metronidazole 500 mg Q 8 hours - Surgery consultation - Start D5 half NS 100 cc/hour # Chronic iron-deficiency anemia secondary to nutritional deficiency # History of Daniela-en-Y gastric bypass surgery - Ordered iron panel, ferritin - IV iron supplementation - Follow-up with [facility] outpatient for iron supplementation # PUD prophylaxis - Protonix 40 mg IV daily # DVT prophylaxis - Not indicated as patient is mobile. Goals of care discussed at bedside with patient for more than [address] Vargas Full code Plan discussed with Dr. Jauregui Plan discussed with: Patient, Other (rn) My Orders My Orders Orders - YANELIS SARAVIA Procedure Category Date Status Time Complete Blood Count LAB 12/22/24 Verified 04:00 Basic Metabolic Panel LAB 12/22/24 Verified 04:00 Date of Service: Dec 21, 2024 Billing Provider: CECILIO BELL MD Common Visit Codes: [id number] INP/OBS CARE(HIGH) YANELIS SARAVIA RESIDENT Dec 21, 2024 15:12 CECILIO BELL MD Dec 24, 2024 01:46
[2024-12-21] MEDS: D5W/SOD CHL 0.45% 1,000 ML IV SCH (16:00)
[2024-12-21] MEDS: LACTATED RINGER'S 1,000 ML IV ONE (16:30)
--- NOTE | 2024-12-21 16:36 | DVHINCON2 ---
Date of service: Dec 21, 2024 History of Present Illness 59-year-old male with a history of multiple abdominal surgery with at least four previous hernia repairs with mesh and Daniela-en-Y gastric bypass in 2017 was also had multiple history of small-bowel obstructions now complaining of one day history of diffuse abdominal pain associated with nausea vomiting and diarrhea. Patient today feels much improved and reports some flatus. He has refused an NG tube insertion. Past Medical History Anxiety. Depression. History of kidney stones. Iron deficiency anemia. Restless leg syndrome. Past Surgical History Multiple abdominal surgeries as previously mentioned. Family History: Diabetes mellitus G8 MOTHER G8 FATHER FH: atrial fibrillation G8 FATHER FH: cancer G8 MOTHER FH: skin cancer G8 FATHER Hypertension G8 MOTHER G8 FATHER Family History Noncontributory Social History Denies alcohol, tobacco, IV drug use Allergies: Coded Allergies: NO KNOWN ALLERGIES (Unverified , 09/04/23) Home Meds Reported Medications Spironolactone (Spironolactone) 25 Mg Tab, 1 TAB PO DAILY, #90 TAB 1 Refill 12/21/24 Terbinafine Hcl (Terbinafine Hcl) 250 Mg Tab, 1 TAB PO UD 09/04/23 Hydrocodone-Acetaminophen (Hydrocodone/Acetaminophen 10-325 mg) 1 Tab Tab, 1 TAB PO Q6HP PRN for PAIN SCALE 7 THRU 10, TAB 09/04/23 Bupropion Hcl (Bupropion Hcl Er) 200 Mg Tab, 1 TAB PO BID 09/04/23 Topiramate (Topiramate) 50 Mg Tab, 1 TAB PO BID 09/04/23 Pantoprazole Sodium Sesquihydr (Pantoprazole Sodium) 40 Mg Tab, 1 TAB PO BID 09/04/23 Current Medications Current Medications Medications (Trade) Dose Ordered Sig/Gabe Route PRN Reason Start Time Stop Time Status Last Admin Sodium Chloride 1,000 ml @ 100 mls/hr Q10H IV 12/21/24 02:30 12/21/24 16:00 DC 12/21/24 03:10 Ondansetron HCl (Zofran) 4 mg Q8HPRN IV 12/21/24 06:00 12/21/24 04:20 DC Pantoprazole Sodium (Protonix) 40 mg DAILY IV 12/21/24 10:00 12/21/24 09:56 Ceftriaxone Sodium 50 ml @ 100 mls/hr DAILY IV 12/21/24 10:00 12/21/24 09:57 Metronidazole 100 ml @ 100 mls/hr Q8HR IV 12/21/24 06:00 12/21/24 14:34 Morphine Sulfate 2 mg Q4HPRN PRN IV MODERATE PAIN (4-6 PAIN SCALE) 12/21/24 04:30 12/21/24 15:06 Ondansetron HCl (Zofran) 4 mg Q8HPRN PRN IV NAUSEA / VOMITING 12/21/24 04:30 12/21/24 04:50 Dextrose/Sodium Chloride 1,000 ml @ 100 mls/hr Q10H IV 12/21/24 16:00 Vital Signs Vital Signs Date Time Temp Pulse Resp B/P (MAP) Pulse Ox O2 Delivery O2 Flow Rate FiO2 12/21/24 15:36 64 16 106/65 12/21/24 12:51 97.8 97 97.8 12/21/24 07:57 Room Air* 0 21 Physical Exam GEN: Age-appropriate male in no acute distress. Alert. HEENT: Normocephalic atraumatic. Moist mucous membranes. Anicteric sclerae. CV: RRR Respiratory: CTAB ABD: Large midline incisional scar. There is a large abdominal wall defect with a large incarcerated hernia however this is very soft and nontender. CT of the abdomen and pelvis: Small bowel obstruction with probable transition was reported at the level of the large ventral hernia in the lower midline abdomen. Labs/Diagnostic Data Labs Test 12/21/24 15:30 12/21/24 00:23 Range/Units White Blood Count 6.6 4.4-10.8 10^3/uL Red Blood Count 4.61 4.5-5.90 10^6/uL Hemoglobin 10.5 L 13.5-17.5 g/dL Hematocrit 32.8 L 41.0-53.0 % Mean Corpuscular Volume 71.0 L 80.0-100.0 fL Mean Corpuscular Hemoglobin 22.7 L 28.0-32.0 pg Mean Corpuscular Hemoglobin Concent 31.9 L 32.0-36.0 g/dL Red Cell Distribution Width 18.6 H 11.8-14.3 % Platelet Count 400 140-450 10^3/uL Mean Platelet Volume 7.5 6.9-10.8 fL Neutrophils (%) (Auto) 79.2 37.0-80.0 % Lymphocytes (%) (Auto) 13.1 10.0-50.0 % Monocytes (%) (Auto) 5.8 0.0-12.0 % Eosinophils (%) (Auto) 0.4 0.0-7.0 % Basophils (%) (Auto) 1.5 0.0-2.0 % Neutrophils # (Auto) 5.3 1.6-8.6 10 ^3/uL Lymphocytes # (Auto) 0.9 0.4-5.4 10 ^3/uL Monocytes # (Auto) 0.4 0-1.3 10 ^3/uL Eosinophils # (Auto) 0 0-0.8 10 ^3/uL Basophils # (Auto) 0.1 0-0.2 10 ^3/uL Nucleated Red Blood Cells 0.0 % Prothrombin Time 10.3 9.3-11.8 sec Prothrombin Time INR 0.97 0.9-1.15 Activated Partial Thromboplast Time 26.5 24.5-34.5 SEC Sodium Level 141 136-145 mmol/L Potassium Level 4.3 3.5-5.1 mmol/L Chloride Level 108 H 98-107 mmol/L Carbon Dioxide Level 23 20-31 mmol/L Anion Gap 10 5-15 Blood Urea Nitrogen 25 H 9-23 mg/dL Creatinine 0.90 0.700-1.30 mg/dL Glomerular Filtration Rate Calc 97 >90 mL/min BUN/Creatinine Ratio 27.8 H 10.0-20.0 Serum Glucose 99 74-106 mg/dL Calcium Level 8.7 8.7-10.4 mg/dL Iron Level 21 L 65-175 ug/dL Total Iron Binding Capacity 400 250-425 ug/dL Percent Iron Saturation 5.3 L 20-55 % Ferritin 4.6 L 22-322 ng/mL Total Bilirubin 0.3 0.2-1.0 mg/dL Aspartate Amino Transferase (AST) 36 13-40 U/L Alanine Aminotransferase (ALT) 14 7-40 U/L Alkaline Phosphatase 95 46-116 U/L Total Protein 7.0 5.7-8.2 g/dL Albumin 4.5 3.2-4.8 g/dL Lipase 50 12-53 U/L Thyroid Stimulating Hormone (TSH) 0.90 0.55-4.78 uIU/mL Assessment 1. Resolving small-bowel obstruction Plan/Recommendation 1. Patient has refused NG tube placement. Clinically patient appears to be improving. We will get a repeat KUB in the morning. If it shows persistent obstruction, we will proceed with a small-bowel follow-through with Gastrografin tomorrow. Plan discussed with: Patient OMER ALVAREZ MD Dec 21, 2024 16:36
[2024-12-21 16:43] LABS: Urine Protein, UAD Negative (Negative)
[2024-12-22] VITALS (8 sets, daily range): BP systolic 99–122; BP diastolic 49–85; PULSE 54–68; RESP 17–20; TEMP 97.6–98.8; O2SAT 95–97
--- NOTE | 2024-12-22 06:52 | DVH ---
Exam: XY KUB ABDOMEN SINGLE VIEW Indication: SBO Comparison: None Technique: Single radiographic view of the abdomen. Findings: Nonspecific partially gas-filled segments of small and large bowel consistent with a nonobstructive b owel gas pattern. There is no definite evidence for pneumoperitoneum. No abnormal calcifications noted. Impression: 1. Nonobstructive bowel gas pattern noted.
[2024-12-22 07:29] LABS: Mean Corpuscular Hemoglobin 23.2 pg (28.0-32.0); Nucleated Red Blood Cells % 0.0 %
[2024-12-22 07:31] LABS: Hematocrit 29.7 % (41.0-53.0); Hemoglobin 9.7 g/dL (13.5-17.5); Mean Corpuscular Volume 71.2 fL (80.0-100.0)
[2024-12-22 07:37] LABS: Sodium 142 mmol/L (136-145)
[2024-12-22 07:38] LABS: Anion Gap 10 (5-15); Calcium 9.0 mg/dL (8.7-10.4); Carbon Dioxide 24 mmol/L (20-31)
[2024-12-22 07:43] LABS: BUN/Creatinine Ratio 15.4 (10.0-20.0); Blood Urea Nitrogen 12 mg/dL (9-23); Glucose 83 mg/dL (74-106)
[2024-12-22 07:46] LABS: Chloride 108 mmol/L (98-107); Potassium 3.4 mmol/L (3.5-5.1)
[2024-12-22] MEDS: POTASSIUM CHL 20MEQ/100ML 100 ML IV ONE ×2 (10:45→11:48)
--- NOTE | 2024-12-22 15:31 | DVHPNRES ---
Progress Note Date Seen: Dec 22, 2024 Resident Creating Document: ISMAEL HILL RESIDENT Medical Necessity Reason Pt with a Central, PICC or Fol: No Subjective Review of Systems Neal Brooks is a 57-year-old male patient past medical history of anxiety, depression kidney stone, iron-deficiency anemia restless leg syndrome, multiple abdominal surgery for ventral hernia repair, Daniela-en-Y gastric bypass surgery, status post stent for enteral stricture. He presented to the ER with a complaint of diffuse abdominal pain predominantly in the infraumbilical area. Associated with nausea and vomiting and 2 episodes of diarrhea. Complains of diffuse abdominal pain which is colicky in nature 10 out of 10 localized associated with frequent vomiting every 20 minutes, contains the food material, and worsening of nausea nausea prompted this visit. Denies chest pain, shortness of breath, palpitation, blurred vision, dysuria, hematuria or any recent traveling history. A CT scan of abdomen was done which showed small- bowel obstruction with transition point at the level of large ventral hernia. He reports 15 episodes of small-bowel obstruction in the past. His labs revealed anemia. He was examined at bedside today. He reports of abdominal pain, without any episodes of vomiting or diarrhea today. Last night, he vomited 8-10 times. He complains of cramps in his legs. Today, he is passing gas. Past medical history: Depression, UTIs, kidney stones, iron deficient anemia, anxiety, depression, restless leg syndrome, ventral hernia repair in 16 opportunities last surgery done in 2006 which required removal of mesh due to MRSA infection, have not resolved hernia since patient was morbidly obese, hence Daniela-en-Y gastric bypass was indicated before completing new surgery (weight in 2017 325 pounds, currently weighs 190 pounds). stricture and gastro ileal anastomosis with placement of stent in May 2023, new distal enteral stricture with placement of stent in 12/2023. Ehler Danos syndrome. Surgical history: Hernia repair in 16 opportunities, Daniela-en-Y gastric bypass, stent placement and gastric ileal anastomosis on 05/2023 and 12/2023 Social history: Denies tobacco, alcohol and other drug abuse ROS 12/14/2024 Patient was seen and examined by me at the bedside. Overnight events were reviewed. Patient has past stool once yesterday and twice today morning. He says volume is average, is light brown and has no blood in it. Patient also reports that his abdominal pain has decreased and he barely feels it anymore. He has also been passing flatus. He complains of no nausea or vomiting. KUB deleted, shows nonobstructive bowel gas pattern. Patient started on clear liquid diet. Objective vital signs Vital Sign Date Time Temp Pulse Resp B/P (MAP) Pulse Ox O2 Delivery O2 Flow Rate FiO2 12/22/24 13:00 97.6 64 18 101/59 (73) 96 97.6 12/22/24 07:57 Room Air* 0 21 Total Intake and Output 12/21/24 12/21/24 12/22/24 15:00 23:00 07:00 Intake Total 50 ml 100 ml 0 ml Balance 50 ml 100 ml 0 ml medications Current Medications Medications Dose Ordered Sig/Gabe Route Start Time Stop Time Status Last Admin Dose Admin Pantoprazole Sodium 40 mg DAILY IV 12/21/24 10:00 12/22/24 10:25 40 MG Ceftriaxone Sodium 50 ml @ 100 mls/hr DAILY IV 12/21/24 10:00 12/22/24 10:25 100 MLS/HR Metronidazole 100 ml @ 100 mls/hr Q8HR IV 12/21/24 06:00 12/22/24 15:04 100 MLS/HR Morphine Sulfate 2 mg Q4HPRN PRN IV 12/21/24 04:30 12/22/24 12:07 2 MG Ondansetron HCl 4 mg Q8HPRN PRN IV 12/21/24 04:30 12/21/24 04:50 4 MG Dextrose/Sodium Chloride 1,000 ml @ 100 mls/hr Q10H IV 12/21/24 16:00 12/22/24 12:11 100 MLS/HR Examination General Appearance: Alert, Oriented X3, Cooperative, No acute distress HEENT: Atraumatic, PERRLA, EOMI, Mucous membrane moist/pink Respiratory: Clear to auscultation, Normal air movement Cardiovascular: Regular rate, Normal S1, Normal S2, No murmurs, no chest wall tenderness Abdominal: Soft abdomen with peristaltic movements seen through hernias; 2 Large ventral hernias, midline laparotomy incision brian from previous surgery. No tenderness, No hepatosplenomegaly, bowel sounds heard in all 4 quadrants Extremities: No clubbing, No cyanosis, No edema, Normal pulses, No tenderness/swellin, Skin: No rashes, No breakdown, No significant lesion Neuro: Normal gait, Normal speech, Strength at 5/5 X4 ext, Normal tone, Sensation intact, Cranial nerves normal Psych/Mental Status: Mental status NL, Mood NL laboratory and microbiology Laboratory Tests 12/22/24 06:21 Test 12/22/24 06:21 Range/Units Serum Glucose 83 74-106 mg/dL Labs and/or images reviewed: Labs reviewed by me, Image(s) reviewed by me Problem List/Assessment/Plan Problem List/Assessment/Plan # Small-bowel obstruction likely secondary to adhesions from previous multiple abdominal surgeries # Multiple failed ventral hernia repair with mesh # Recent diagnosis of Ehler Danlos syndrome in daughter, probable inheritance from biological father # 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 - IV ceftriaxone 1 g daily and IV metronidazole 500 mg Q 8 hours - Surgery consultation suggested: surgery signed off, started liq diet and we will advance as tolerated - Start D5 half NS 100 cc/hour - KUB showed: Nonobstructive bowel gas pattern noted. - patient started on clear liquid diet today (12/14/2024) # Chronic iron-deficiency anemia secondary to nutritional deficiency # History of Daniela-en-Y gastric bypass surgery - iron panel, ferritin, suggestive of iron deficiency anemia - IV iron supplementation given yesterday (1 dose on 12/21), replete tomm again - Follow-up with [facility] outpatient for iron supplementation # hypokalemia -Repleted Vit D deficiency -repleted PUD prophylaxis:Protonix 40 mg IV daily DVT prophylaxis:- Not indicated as patient is mobile. Goals of care discussed at bedside with patient for more than [address] Vargas Full code Plan discussed with Dr. Jauregui, patient and nurse Plan discussed with: Patient, Other (rn) Date of Service: Dec 22, 2024 Billing Provider: CECILIO BELL MD Common Visit Codes: [id number] INP/OBS CARE(HIGH) ISMAEL HILL RESIDENT Dec 22, 2024 15:30 CECILIO BELL MD Dec 24, 2024 01:53
--- NOTE | 2024-12-22 16:02 | DVHPN2 ---
Progress Note - Dictate Date Seen: Dec 22, 2024 Medical Necessity Reason Pt with a Central, PICC or Fol: No Subjective E: no major events o/n. feeling better. fredrick clear liquid diet. vital signs Vital Sign Date Time Temp Pulse Resp B/P (MAP) Pulse Ox O2 Delivery O2 Flow Rate FiO2 12/22/24 13:00 97.6 64 18 101/59 (73) 96 97.6 12/22/24 07:57 Room Air* 0 21 Total Intake and Output 12/21/24 12/21/24 12/22/24 15:00 23:00 07:00 Intake Total 50 ml 100 ml 0 ml Balance 50 ml 100 ml 0 ml medications Current Medications Medications Dose Ordered Sig/Gabe Route Start Time Stop Time Status Last Admin Dose Admin Pantoprazole Sodium 40 mg DAILY IV 12/21/24 10:00 12/22/24 10:25 40 MG Ceftriaxone Sodium 50 ml @ 100 mls/hr DAILY IV 12/21/24 10:00 12/22/24 10:25 100 MLS/HR Metronidazole 100 ml @ 100 mls/hr Q8HR IV 12/21/24 06:00 12/22/24 15:04 100 MLS/HR Morphine Sulfate 2 mg Q4HPRN PRN IV 12/21/24 04:30 12/22/24 12:07 2 MG Ondansetron HCl 4 mg Q8HPRN PRN IV 12/21/24 04:30 12/21/24 04:50 4 MG Dextrose/Sodium Chloride 1,000 ml @ 100 mls/hr Q10H IV 12/21/24 16:00 12/22/24 12:11 100 MLS/HR objective GEN: NAD ABD: soft. NT/ND. KUB: Nonspecific bowel gas pattern laboratory and microbiology Laboratory Tests 12/22/24 06:21 Test 12/22/24 06:21 Range/Units Serum Glucose 83 74-106 mg/dL Assessment/Plan A: 1. Resolving small-bowel obstruction P: 1. advance diet slowly. surgery signing off. Plan discussed with: Patient OMER ALVAREZ MD Dec 22, 2024 16:02
[2024-12-22] MEDS: ERGOCALCIFEROL 50,000 UNIT(1.25MG) CAP PO SCH (18:36)
[2024-12-23 01:00] VITALS: BP 122/79; PULSE 55; RESP 18; TEMP 97.6; O2SAT 97
[2024-12-23 05:00] VITALS: BP 99/56; PULSE 58; RESP 18; TEMP 97.9; O2SAT 98
[2024-12-23 06:25] LABS: Nucleated Red Blood Cells % 0.1 %
[2024-12-23 06:28] LABS: Hematocrit 29.1 % (41.0-53.0); Hemoglobin 9.4 g/dL (13.5-17.5); Mean Corpuscular Hemoglobin 22.8 pg (28.0-32.0); Mean Corpuscular Volume 70.5 fL (80.0-100.0)
[2024-12-23 06:38] LABS: Alanine Aminotransferase 10 U/L (7-40); Albumin 3.4 g/dL (3.2-4.8); Alkaline Phosphatase 68 U/L (46-116); Anion Gap 9 (5-15); Carbon Dioxide 23 mmol/L (20-31); Glucose 103 mg/dL (74-106); Potassium 3.7 mmol/L (3.5-5.1); Sodium 142 mmol/L (136-145)
[2024-12-23 06:39] LABS: Bilirubin, Total 0.3 mg/dL (0.2-1.0)
[2024-12-23 06:45] LABS: BUN/Creatinine Ratio 7.5 (10.0-20.0); Blood Urea Nitrogen < 5 mg/dL (9-23); Calcium 8.7 mg/dL (8.7-10.4); Chloride 110 mmol/L (98-107); Total Protein 5.4 g/dL (5.7-8.2)
[2024-12-23 09:00] VITALS: BP 113/80; PULSE 84; RESP 20; TEMP 98.4; O2SAT 98
--- NOTE | 2024-12-23 11:31 | DVHDSRES ---
Discharge Summary Date of Admission Resident Creating Document: ISMAEL HILL RESIDENT Dec 21, 2024 at 02:17 Date of Discharge: Dec 23, 2024 Admitting Diagnosis # Small-bowel obstruction likely secondary to adhesions from previous multiple abdominal surgeries Labs/Diagnostic Data: Laboratory Results Test 12/23/24 05:44 12/22/24 06:21 12/21/24 15:30 12/21/24 00:23 White Blood Count 3.9 10^3/uL (4.4-10.8) Red Blood Count 4.13 10^6/uL (4.5-5.90) Hemoglobin 9.4 g/dL (13.5-17.5) Hematocrit 29.1 % (41.0-53.0) Mean Corpuscular Volume 70.5 fL (80.0-100.0) Mean Corpuscular Hemoglobin 22.8 pg (28.0-32.0) Mean Corpuscular Hemoglobin Concent 32.4 g/dL (32.0-36.0) Red Cell Distribution Width 18.6 % (11.8-14.3) Platelet Count 325 10^3/uL (140-450) Mean Platelet Volume 7.9 fL (6.9-10.8) Neutrophils (%) (Auto) 61.7 % (37.0-80.0) Lymphocytes (%) (Auto) 23.4 % (10.0-50.0) Monocytes (%) (Auto) 10.9 % (0.0-12.0) Eosinophils (%) (Auto) 2.4 % (0.0-7.0) Basophils (%) (Auto) 1.6 % (0.0-2.0) Neutrophils # (Auto) 2.4 10 ^3/uL (1.6-8.6) Lymphocytes # (Auto) 0.9 10 ^3/uL (0.4-5.4) Monocytes # (Auto) 0.4 10 ^3/uL (0-1.3) Eosinophils # (Auto) 0.1 10 ^3/uL (0-0.8) Basophils # (Auto) 0.1 10 ^3/uL (0-0.2) Nucleated Red Blood Cells 0.1 % Sodium Level 142 mmol/L (136-145) Potassium Level 3.7 mmol/L (3.5-5.1) Chloride Level 110 mmol/L (98-107) Carbon Dioxide Level 23 mmol/L (20-31) Anion Gap 9 (5-15) Blood Urea Nitrogen < 5 mg/dL (9-23) Creatinine 0.67 mg/dL (0.700-1.30) Glomerular Filtration Rate Calc 106 mL/min (>90) BUN/Creatinine Ratio 7.5 (10.0-20.0) Serum Glucose 103 mg/dL (74-106) Calcium Level 8.7 mg/dL (8.7-10.4) Total Bilirubin 0.3 mg/dL (0.2-1.0) Aspartate Amino Transferase (AST) 29 U/L (13-40) Alanine Aminotransferase (ALT) 10 U/L (7-40) Alkaline Phosphatase 68 U/L (46-116) Total Protein 5.4 g/dL (5.7-8.2) Albumin 3.4 g/dL (3.2-4.8) Magnesium Level 2.0 mg/dL (1.6-2.6) Urine Color Light-yellow (Yellow) Urine Clarity Clear (Clear) Urine pH 5.5 (5.0-9.0) Urine Specific Agate 1.012 (1.001-1.035) Urine Protein Negative (Negative) Urine Ketones 1+ (Negative) Urine Blood Negative /uL (Negative) Urine Nitrite Negative (Negative) Urine Bilirubin Negative (Negative) Urine Urobilinogen Normal mg/dL (Negative) Urine Leukocyte Esterase Negative /uL (Negative) Urine RBC None seen /hpf (0 - 3) Urine Microscopic WBC 2 /HPF (0-3) Urine Squamous Epithelial Cells None seen /hpf (<5) Urine Bacteria None seen /hpf (None Seen) Urine Glucose Normal mg/dL (Normal) Prothrombin Time 10.3 sec (9.3-11.8) Prothrombin Time INR 0.97 (0.9-1.15) Activated Partial Thromboplast Time 26.5 SEC (24.5-34.5) Iron Level 21 ug/dL (65-175) Total Iron Binding Capacity 400 ug/dL (250-425) Percent Iron Saturation 5.3 % (20-55) Ferritin 4.6 ng/mL (22-322) Lipase 50 U/L (12-53) Vitamin D 25-Hydroxy 28.3 ng/mL (30.0-100) Thyroid Stimulating Hormone (TSH) 0.90 uIU/mL (0.55-4.78) Other Laboratory Tests 12/23/24 05:44 Brief Hx & Hospital Course: Neal Brooks is a 57-year-old male patient past medical history of anxiety, depression kidney stone, iron-deficiency anemia restless leg syndrome, multiple abdominal surgery for ventral hernia repair, Daniela-en-Y gastric bypass surgery, status post stent for enteral stricture. He presented to the ER with a complaint of diffuse abdominal pain predominantly in the infraumbilical area. Associated with nausea and vomiting and 2 episodes of diarrhea. Complains of diffuse abdominal pain which is colicky in nature 10 out of 10 localized associated with frequent vomiting every 20 minutes, contains the food material, and worsening of nausea nausea prompted this visit. Denies chest pain, shortness of breath, palpitation, blurred vision, dysuria, hematuria or any recent traveling history. A CT scan of abdomen was done which showed small- bowel obstruction with transition point at the level of large ventral hernia. He reports 15 episodes of small-bowel obstruction in the past. His labs revealed anemia. He was examined at bedside today. He reports of abdominal pain, without any episodes of vomiting or diarrhea today. Last night, he vomited 8-10 times. He complains of cramps in his legs. Today, he is passing gas. Past medical history: Depression, UTIs, kidney stones, iron deficient anemia, anxiety, depression, restless leg syndrome, ventral hernia repair in [facility] opportunities last surgery done in 2006 which required removal of mesh due to MRSA infection, have not resolved hernia since patient was morbidly obese, hence Daniela-en-Y gastric bypass was indicated before completing new surgery (weight in 2017 325 pounds, currently weighs 190 pounds). stricture and gastro ileal anastomosis with placement of stent in May 2023, new distal enteral stricture with placement of stent in 12/2023. Ehler Danos syndrome. Surgical history: Hernia repair in 16 opportunities, Daniela-en-Y gastric bypass, stent placement and gastric ileal anastomosis on 05/2023 and 12/2023 Social history: Denies tobacco, alcohol and other drug abuse Brief history of hospitalization: Patient had small-bowel obstruction likely secondary to adhesions from previous multiple abdominal surgeries. He had multiple failed ventral hernia repair with mesh. Patient's Daughter was recently diagnosed with Omar-Danlos syndrome, probable inheritance from biological father. 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 A CT abdomen pelvis with IV contrast showed small bowel obstruction with probable transition point at the level of large ventral hernia in the lower midline abdomen. We kept the patient NPO and started morphine 2 mg q.4 PRN. For his nausea we gave IV ondansetron 4 mg Q 8 PRN. We gave the patient IV ceftriaxone 1 g daily and IV metronidazole 500 mg Q 8 hours. Patient was given D5 half NS 100 cc/hour. Patient was started on clear liquid diet on 12/22/24 as suggested by surgery and was able to tolerate it well. We repeated a KUB that showed nonobstructive bowel gas pattern. we began him today on on full liquid diet and patient has been able to tolerated. Patient now is able to ambulate, has past stool several times, has been passing flatus and is now stable for discharge. For patient's iron-deficiency anemia secondary to nutritional deficiency and history of Daniela-en-Y gastric bypass surgery, an iron panel, ferritin labs were monitored which was suggestive of iron-deficiency anemia. We repleted her with IV iron on 12/21 and once more today on 12/23. We have counseled the patient to follow up with it disaster recovery manager outpatient for iron supplementation. Patient is a poor candidate for oral iron supplementation as he has frequent constipation and repeated SBO. PCP to consider regular IV infusion. For patient's hypokalemia and vitamin-D deficiency we have corrected them. patient has been counseled regarding the need to follow up and has communicated understanding. He is being discharged today General Appearance: Alert, Oriented X3, Cooperative, No acute distress HEENT: Atraumatic, PERRLA, EOMI, Mucous membrane moist/pink Respiratory: Clear to auscultation, Normal air movement Cardiovascular: Regular rate, Normal S1, Normal S2, No murmurs, no chest wall tenderness Abdominal: Soft abdomen with peristaltic movements seen through hernias; 2 Large ventral hernias, midline laparotomy incision brian from previous surgery. No tenderness, No hepatosplenomegaly, bowel sounds heard in all 4 quadrants Extremities: No clubbing, No cyanosis, No edema, Normal pulses, No tenderness/swelling, Skin: No rashes, No breakdown, No significant lesion Neuro: Normal gait, Normal speech, Strength at 5/5 X4 ext, Normal tone, Sensation intact, Cranial nerves normal Psych/Mental Status: Mental status NL, Mood NL Instructions: -Follow up with PCP regarding repeat iron studies and possible IV iron Within 2 weeks -Follow up at discharge clinic within 1 week Operations or Procedures Exam: CT CT AB PEL WITH IV CON ONLY IMPRESSION: Small-bowel obstruction with probable transition point at the level of the large ventral hernia in the lower midline abdomen. Radiation optimization: All CT scans at this facility use at least one of these dose optimization techniques: automated exposure control mA and/or kV adjustment per patient size (includes targeted exams where dose is matched to clinical indication) or iterative reconstruction. CHEST RADIOGRAPH IMPRESSION: No acute disease. ------- XY KUB ABDOMEN SINGLE VIEW Impression: Nonobstructive bowel gas pattern noted. 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 # Chronic iron-deficiency anemia secondary to nutritional deficiency # History of Daniela-en-Y gastric bypass surgery # hypokalemia # Vit D deficiency Discharge Disposition: Home Discharge Instruct/Medications Diet: Consistent carbohydrate, Cardiac 2g Na,low cholest Activity: No Restrictions, As Tolerated Follow Up/Referral: followup with pcp within 2 weeks Discharge Clinic within 1 week Medications: resume home medication Scheduled Bupropion Hcl (Bupropion Hcl Er), 1 TAB PO BID, (Reported) Pantoprazole Sodium Sesquihydr (Pantoprazole Sodium), 1 TAB PO BID, (Reported) Spironolactone (Spironolactone), 1 TAB PO DAILY, (Reported) Terbinafine Hcl (Terbinafine Hcl), 1 TAB PO UD, (Reported) Topiramate (Topiramate), 1 TAB PO BID, (Reported) Scheduled PRN Hydrocodone-Acetaminophen (Hydrocodone/Acetaminophen 10-325 mg), 1 TAB PO Q6HP PRN for PAIN SCALE 7 THRU 10, (Reported) Discharge Statement: "Patient was advised to return to the ER or call 911 if any headaches, dizziness, shortness of breath, chest pain, abdominal pain, bleeding, fevers, or worsening of medical condition. Patient was counseled about treatment plan, medications, possible side effects, patientverbalized understanding. All questions were answered to the best of my ability. 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
[2024-12-23] MEDS: IRON SUCROSE COMPLEX 110 ML IV ONE (11:49)
[2024-12-23 13:00] VITALS: BP 121/71; PULSE 87; RESP 20; O2SAT 99
== END 2024-12-23 13:25 | disposition home or self-care (01) | DRG 389 ==
LOC: ER 23:52 → OVERFLOW 12-21 02:17 → WEST WING 12-21 03:36
PROVIDERS: ADMIT Student in an Organized Health Care Education/Training Program; ATTEND Emergency Medicine
DX: K56.50 Intestinal adhesions [bands], unspecified as to partial versus complete obstruction (principal); K43.6 Other and unspecified ventral hernia with obstruction, without gangrene; Q79.60 Ehlers-Danlos syndrome, unspecified; D50.9 Iron deficiency anemia, unspecified; G25.81 Restless legs syndrome; F41.9 Anxiety disorder, unspecified; E87.6 Hypokalemia; E55.9 Vitamin D deficiency, unspecified; Z98.84 Bariatric surgery status; Z87.442 Personal history of urinary calculi; Z83.3 Family history of diabetes mellitus; Z82.49 Family history of ischemic heart disease and other diseases of the circulatory system; Z80.8 Family history of malignant neoplasm of other organs or systems
CPT/HCPCS: 36415; 71045; 74018; 74177; 80048; 80053; 81001; 82306; 82728; 83540; 83550; 83690; 83735; 84443; 85025; 85610; 85730; 96361; 96374; 96375; G0378; J1756; J2405; J2470; J3480; J3490; J7042

== ENCOUNTER 2025-01-13 10:09 | Inpatient (IN) | payer BC, MEDICARE ==
[~2025-01-13] VITALS: Ht 170.2 cm; Wt 73.5 kg
[~2025-01-13 10:09] MED LIST changes: -BUSP7.5T8 PO; -CYCL-614 PO; +SPIR25TA8 PO
--- NOTE | 2025-01-13 10:29 | ED.PDOC ---
History of Present Illness HPI Comments 59-year-old male brought by paramedics after a fall while gardening. No symptoms prior to the fall. Complaining of left shoulder elbow pain. He is supposed to have left shoulder surgery for rotator cuff. Denies loss of consciousness. Denies any past medical surgical history. Denies any other symptoms. Chief Complaint: Upper Extremity Time Seen by MD: 10:25 Primary Care Provider: STACEY Villegas Notes: Nurses Notes, Medications, Allergies Allergies: Coded Allergies: NO KNOWN ALLERGIES (Unverified , 09/04/23) Home Meds Reported Medications Spironolactone (Spironolactone) 25 Mg Tab, 1 TAB PO DAILY, #90 TAB 1 Refill 12/21/24 Terbinafine Hcl (Terbinafine Hcl) 250 Mg Tab, 1 TAB PO UD 09/04/23 Hydrocodone-Acetaminophen (Hydrocodone/Acetaminophen 10-325 mg) 1 Tab Tab, 1 TAB PO Q6HP PRN for PAIN SCALE 7 THRU 10, TAB 09/04/23 Bupropion Hcl (Bupropion Hcl Er) 200 Mg Tab, 1 TAB PO BID 09/04/23 Topiramate (Topiramate) 50 Mg Tab, 1 TAB PO BID 09/04/23 Pantoprazole Sodium Sesquihydr (Pantoprazole Sodium) 40 Mg Tab, 1 TAB PO BID 09/04/23 Information Source: Patient, Emergency Med Personnel Mode of Arrival: EMS Severity: Moderate Timing: Hours Duration: Since onset Past Medical History PAST MEDICAL HISTORY: Kidney Stones Surgical History: Hernia Repair Family History Family History: Reviewed,noncontributory to illness Social History Smoker: Non-Smoker Alcohol: Denies ETOH Use Drugs: Denies Drug Use Lives In: Home Constitutional: denies: chills, diaphoresis, fatigue, fever, malaise, sweats, weakness, others EENTM: denies: blurred vision, double vision, ear bleeding, ear discharge, ear drainage, ear pain, ear ringing, eye pain, eye redness, hearing loss, mouth pain, mouth swelling, nasal discharge, nose bleeding, nose congestion, nose pain, photophobia, tearing, throat pain, throat swelling, voice changes, others Respiratory: denies: cough, hemoptysis, orthopnea, SOB at rest, shortness of breath, SOB with excertion, stridor, wheezing, others Cardiovascular: denies: chest pain, dizzy spells, diaphoresis, Dyspnea on exertion, edema, irregular heart beat, left arm pain, lightheadedness, palpitations, PND, syncope, others Gastrointestinal: denies: abdomen distended, abdominal pain, blood streaked bowels, constipated, diarrhea, dysphagia, difficulty swallowing, hematemesis, melena, nausea, poor appetite, poor fluid intake, rectal bleeding, rectal pain, vomiting, others Genitourinary: denies: burning, dysuria, flank pain, frequency, hematuria, incontinence, penile discharge, penile sore, pain, testicle pain, testicle swelling, urgency, others Neurological: denies: dizziness, fainting, headache, left sided numbness, left sided weakness, numbness, paresthesia, pre-existing deficit, right sided numbness, right sided weakness, seizure, speech problems, tingling, tremors, weakness, others Musculoskeletal: reports: joint pain (Left shoulder); denies: back pain, gout, joint swelling, muscle pain, muscle stiffness, neck pain, others Integumetry: denies: bruises, change in color, change in hair/nails, dryness, laceration, lesions, lumps, rash, wounds, others Allergic/Immunocompromised: denies: Difficulty Healing, Frequent Infections, Hives, Itching, others Hematologic/Lymphatic: denies: anemia, blood clots, easy bleeding, easy bruising, swollen glands, others Endocrine: denies: excessive hunger, excessive sweating, excessive thirst, excessive urination, flushing, intolerance to cold, intolerance to heat, unex plained weight gain, unexplained weight loss, others Psychiatric: denies: anxiety, bipolar disorder, depression, hopeless, panic disorder, schizophrenia, sleepless, suicidal, others Physical Exam General Appearance: Moderate Distress HEENT: Normal ENT Inspection, Pharynx Normal, TMs Normal Neck: Full Range of Motion, Non-Tender, Normal, Normal Inspection Respiratory: Chest Non-Tender, Lungs Clear, No Accessory Muscle Use, No Respiratory Distress, Normal Breath Sounds Cardiovascular: No Edema, No JVD, No Murmur, No Gallop, Normal Peripheral Pulses, Regular Rate/Rhythm Breast Exam: Deferred Gastrointestinal: No Organomegaly, Non Tender, No Pulsatile Mass, Normal Bowel Sounds, Soft Genitalia: Deferred Pelvic: Deferred Rectal: Deferred Extremities: Decreased range of motion (Left shoulder) Musculoskeletal : Apperance: Normal Neurologic: Alert, health sciences dean II-XII nml as Tested, No Motor Deficits, Normal Affect, Normal Mood, No Sensory Deficits Cerebellar Function: NOT DONE Reflexes: NOT DONE Skin: Dry, Normal Color, Warm Peripheral Pulses: 3+ Radial (R), 3+ Radial (L) Lymphatic: No Adenopathy Was a procedure done? Was a procedure done?: No Differential Dx Considerations may include: Rotator cuff Muscle strain X-Ray, Labs, Meds, VS Vital Signs Date Time Temp Pulse Resp B/P (MAP) Pulse Ox O2 Delivery O2 Flow Rate FiO2 01/13/25 13:11 75 17 121/87 01/13/25 11:56 75 20 121/88 01/13/25 11:50 98.4 75 18 121/88 (99) 98 98.4 01/13/25 11:50 75 18 98 Room Air 01/13/25 10:14 98.5 82 18 124/65 98 98.5 Lab Test 01/13/25 10:31 Range/Units White Blood Count 7.0 4.4-10.8 10^3/uL Red Blood Count 4.26 L 4.5-5.90 10^6/uL Hemoglobin 10.3 L 13.5-17.5 g/dL Hematocrit 31.9 L 41.0-53.0 % Mean Corpuscular Volume 74.9 L 80.0-100.0 fL Mean Corpuscular Hemoglobin 24.1 L 28.0-32.0 pg Mean Corpuscular Hemoglobin Concent 32.2 32.0-36.0 g/dL Red Cell Distribution Width 22.4 H 11.8-14.3 % Platelet Count 392 140-450 10^3/uL Mean Platelet Volume 7.3 6.9-10.8 fL Neutrophils (%) (Auto) 82.2 H 37.0-80.0 % Lymphocytes (%) (Auto) 10.2 10.0-50.0 % Monocytes (%) (Auto) 6.0 0.0-12.0 % Eosinophils (%) (Auto) 0.7 0.0-7.0 % Basophils (%) (Auto) 0.9 0.0-2.0 % Neutrophils # (Auto) 5.7 1.6-8.6 10 ^3/uL Lymphocytes # (Auto) 0.7 0.4-5.4 10 ^3/uL Monocytes # (Auto) 0.4 0-1.3 10 ^3/uL Eosinophils # (Auto) 0 0-0.8 10 ^3/uL Basophils # (Auto) 0.1 0-0.2 10 ^3/uL Nucleated Red Blood Cells 0.0 % Platelet Estimate Adequate Large Platelets Few Hypochromasia (manual) Moderate Poikilocytosis (manual) Slight Anisocytosis (manual) Slight Microcytosis Slight Ovalocytes Few Sodium Level 141 136-145 mmol/L Potassium Level 4.1 3.5-5.1 mmol/L Chloride Level 112 H 98-107 mmol/L Carbon Dioxide Level 19 L 20-31 mmol/L Anion Gap 10 5-15 Blood Urea Nitrogen 14 9-23 mg/dL Creatinine 0.91 0.700-1.30 mg/dL Glomerular Filtration Rate Calc 96 >90 mL/min BUN/Creatinine Ratio 15.4 10.0-20.0 Serum Glucose 102 74-106 mg/dL Calcium Level 8.7 8.7-10.4 mg/dL Troponin I High Sensitivity < 3 L </=54 ng/L Current Medications Medications (Trade) Dose Ordered Sig/Gabe Route Start Time Stop Time Status Last Admin Sodium Chloride 1,000 ml @ 1,000 mls/hr Q1H ONCE IV 01/13/25 10:30 01/13/25 11:29 DC 01/13/25 10:39 Hydromorphone HCl (Dilaudid Injection) 1 mg ONCE ONCE IV 01/13/25 11:45 01/13/25 11:46 DC 01/13/25 11:56 Ondansetron HCl (Zofran) 4 mg ONCE ONCE IV 01/13/25 11:45 01/13/25 11:46 DC 01/13/25 11:55 Sodium Chloride 1,000 ml @ 1,000 mls/hr Q1H ONCE IV 01/13/25 13:45 01/13/25 14:44 DC 01/13/25 13:48 Time of 1ST Reevaluation: 10:28 Reevaluation 1ST: Unchanged Patient Education/Counseling: Diagnosis, Treatment, Prognosis Family Education/Counseling: No Family Present SEPSIS Sepsis Screen Physician Orders Chest Portable (01/13/25 10:25) L Shoulder 2+ View Xray (01/13/25 10:25) L Elbow 2 View Xray (01/13/25 10:25) Vital Signs Date Time Temp Pulse Resp B/P (MAP) Pulse Ox O2 Delivery O2 Flow Rate FiO2 01/13/25 13:11 75 17 121/87 01/13/25 11:56 75 20 121/88 01/13/25 11:50 98.4 75 18 121/88 (99) 98 98.4 01/13/25 11:50 75 18 98 Room Air 01/13/25 10:14 98.5 82 18 124/65 98 98.5 Laboratory Tests Test 01/13/25 10:31 White Blood Count 7.0 10^3/uL (4.4-10.8) Medications Medications Dose Ordered Sig/Gabe Route Start Time Stop Time Status Last Admin Dose Admin Hydromorphone HCl 1 mg ONCE ONCE IV 01/13/25 11:45 01/13/25 11:46 DC 01/13/25 11:56 Ondansetron HCl 4 mg ONCE ONCE IV 01/13/25 11:45 01/13/25 11:46 DC 01/13/25 11:55 Sodium Chloride 1,000 ml @ 1,000 mls/hr Q1H ONCE IV 01/13/25 10:30 01/13/25 11:29 DC 01/13/25 10:39 Sodium Chloride 1,000 ml @ 1,000 mls/hr Q1H ONCE IV 01/13/25 13:45 01/13/25 14:44 DC 01/13/25 13:48 Departure 1 Departure Time of Disposition: 10:29 Impression: Primary Impression: Internal derangement of left shoulder Additional Impression: Fracture, humerus Qualified Codes: S42.472A - Displaced transcondylar fracture of left humerus, initial encounter for closed fracture Disposition: ADMITTED INPATIENT Admit to: Med Surg Condition: Guarded Critical Care Note Critical Care Time?: Yes (90 min-critical care time only) Stability Stability form required: No Heart Score Heart Score: Heart Score Response (Comments) Value History N/A 0 EKG N/A 0 Age N/A 0 Risk Factors N/A 0 Troponin N/A 0 Total 0 BENJIE JOSUE MD Jan 13, 2025 10:29
[2025-01-13] MEDS: SODIUM CHLORIDE 0.9% 1,000 ML IV ONE ×2 (10:39→13:48)
[2025-01-13 10:46] LABS: Hematocrit 31.9 % (41.0-53.0); Hemoglobin 10.3 g/dL (13.5-17.5); Mean Corpuscular Hemoglobin 24.1 pg (28.0-32.0); Mean Corpuscular Volume 74.9 fL (80.0-100.0); Nucleated Red Blood Cells % 0.0 %; Potassium 4.1 mmol/L (3.5-5.1); Sodium 141 mmol/L (136-145)
[2025-01-13 10:47] LABS: Anion Gap 10 (5-15); Carbon Dioxide 19 mmol/L (20-31); Chloride 112 mmol/L (98-107)
[2025-01-13 10:48] LABS: Calcium 8.7 mg/dL (8.7-10.4)
[2025-01-13 10:52] LABS: BUN/Creatinine Ratio 15.4 (10.0-20.0); Blood Urea Nitrogen 14 mg/dL (9-23); Glucose 102 mg/dL (74-106)
--- NOTE | 2025-01-13 11:23 | DVH ---
CHEST RADIOGRAPH Indication: sob Technique: Single frontal view of the chest was obtained COMPARISON: XY CHEST PORTABLE on DOS: 12/21/24 FINDINGS: Lines and Tubes: None Lungs: Clear Pleura: No effusion. No pneumothorax. Cardiomediastinal contours: Unremarkable Bones: Chronic appearing nondisplaced left rib fractures. IMPRESSION: No acute disease.
--- NOTE | 2025-01-13 11:24 | DVH ---
CLINICAL INDICATION: fall, trauma, pain TECHNIQUE: XY L ELBOW 2 VIEW XRAY Comparison: None FINDINGS/IMPRESSION: : There is no evidence of acute fracture or dislocation. Soft tissues are unremarkable.
--- NOTE | 2025-01-13 11:25 | DVH ---
CLINICAL INDICATION: Trauma, pain TECHNIQUE: XY L SHOULDER 2+ VIEW XRAY Comparison: XY L SHOULDER 2+ VIEW XRAY on DOS: 09/18/24 FINDINGS/IMPRESSION: : No glenohumeral joint space dislocation. Comminuted and displaced fracture of the proximal humeral metaphysis.
[2025-01-13] MEDS: ONDANSETRON HCL 4 MG/2 ML VIAL IV ONE (11:55)
[2025-01-13] MEDS: HYDROmorphone HCL 2 MG/ML VL/or syr IV ONE ×2 (11:56→16:48)
[2025-01-13 12:08] LABS: Anisocytosis Slight; Ovalocytes FEW
[2025-01-13] MEDS ORDERED: HYDROcodone-ACET 5/325MG TAB PO PRN (15:15)
[2025-01-13] MEDS ORDERED: ACETAMINOPHEN 325 MG TAB PO PRN (15:15)
[2025-01-13] MEDS ORDERED: DOCUSATE SOD 100 MG CAP PO PRN (15:15)
[2025-01-13] MEDS: MORPHINE SULFATE INJ 2 MG/ml SYRG IV ONE (15:45)
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
[2025-01-13 16:47] LABS: INR 1.02 (0.9-1.15); Partial Thromboplastin Time 27.1 SEC (24.5-34.5); Prothrombin Time 10.8 sec (9.3-11.8)
[2025-01-13 18:53] VITALS: BP 122/82; PULSE 68; PULSE 75; RESP 12; RESP 18; TEMP 97.9; O2SAT 100; O2SAT 97
[2025-01-13 20:00] VITALS: PULSE 75; RESP 18; O2SAT 97
[2025-01-13] MEDS: HYDROcodone-ACET 10/325MG TAB PO PRN (20:21)
[2025-01-13 21:00] VITALS: BP 127/74; PULSE 77; RESP 18; TEMP 97.6; O2SAT 97
[2025-01-13] MEDS ORDERED: HYDROcodone-ACET 10/325MG TAB PO PRN (21:30)
[2025-01-13] MEDS: BUPROPION HYDROCHLORIDE PO SCH (22:00)
[2025-01-13] MEDS: MORPHINE SULFATE INJ 2 MG/ml SYRG IV PRN (22:30)
[2025-01-13] MEDS: TOPIRAMATE 25 MG TAB PO SCH (22:34)
[2025-01-13] MEDS: PANTOPRAZOLE 40 MG TAB PO SCH (22:34)
[2025-01-14] VITALS (7 sets, daily range): BP systolic 102–137; BP diastolic 55–78; PULSE 69–86; RESP 16–20; TEMP 97.5–98.7; O2SAT 98–100
[2025-01-14] MEDS: KETOROLAC TROMETH 30 MG/ML 1ML VIAL IV ONE (05:02)
[2025-01-14] MEDS: SPIRONOLACTONE 25 MG TAB PO SCH (08:35)
[2025-01-14 08:48] LABS: Hematocrit 29.6 % (41.0-53.0)
[2025-01-14 08:51] LABS: Hemoglobin 9.6 g/dL (13.5-17.5); Mean Corpuscular Hemoglobin 23.8 pg (28.0-32.0); Mean Corpuscular Volume 73.5 fL (80.0-100.0); Nucleated Red Blood Cells % 0.1 %
[2025-01-14 09:05] LABS: Albumin 4.0 g/dL (3.2-4.8); Alkaline Phosphatase 67 U/L (46-116); Anion Gap 10 (5-15); BUN/Creatinine Ratio 21.1 (10.0-20.0); Bilirubin, Total 0.6 mg/dL (0.2-1.0); Blood Urea Nitrogen 15 mg/dL (9-23); Carbon Dioxide 23 mmol/L (20-31); Glucose 89 mg/dL (74-106); Potassium 3.7 mmol/L (3.5-5.1); Sodium 140 mmol/L (136-145); Total Protein 6.0 g/dL (5.7-8.2)
[2025-01-14 09:10] LABS: Alanine Aminotransferase < 9 U/L (7-40); Calcium 8.5 mg/dL (8.7-10.4); Chloride 107 mmol/L (98-107)
[2025-01-14] MEDS: HYDROmorphone HCL 2 MG/ML VL/or syr IV PRN (11:27)
--- NOTE | 2025-01-14 11:53 | DVHINCON2 ---
Date Seen: Jan 14, 2025 Referring Physician ELTON Villegas Reason for Consultation Cardiac risk stratification History of Present Illness This is a pleasant 59-year-old man who presented to the emergency room via EMS with a chief complaint of left shoulder pain. The patient reports a mechanical fall injury with negative LOC. He has been diagnosed with a closed fracture of the left shoulder with tentative orthopedic surgical intervention scheduled for 01/15/2025. Cardiology consulted for cardiac risk stratification prior to procedure. The patient denies any past medical history of cardiovascular disease. Denies chest pain, palpitations, diaphoresis, SOB, dizziness, or syncopal events. Denies exertional angina or dyspnea on exertion. States he is very active including METs at about 10. Twelve lead electrocardiogram revealing normal sinus rhythm. Significant medical history includes GERD, history of gastric bypass, and history of multiple hernia repairs. Past Medical History Past medical history reviewed. No other significant than mentioned above. Past Surgical History Multiple hernia repairs including inguinal x4 Visceral exploratory laparotomy Family History: Diabetes mellitus G8 MOTHER G8 FATHER FH: atrial fibrillation G8 FATHER FH: cancer G8 MOTHER FH: skin cancer G8 FATHER Hypertension G8 MOTHER G8 FATHER Family History Family history reviewed. Father with a history of CAD status post PTCA including two stents. Social History Denies the use of illicit drugs or tobacco use. Admits to occasional alcohol use. Allergies: Coded Allergies: NO KNOWN ALLERGIES (Unverified , 09/04/23) Home Meds Reported Medications Spironolactone (Spironolactone) 25 Mg Tab, 1 TAB PO DAILY, #90 TAB 1 Refill 12/21/24 Hydrocodone-Acetaminophen (Hydrocodone/Acetaminophen 10-325 mg) 1 Tab Tab, 1 TAB PO Q6HP PRN for PAIN SCALE 7 THRU 10, TAB 09/04/23 Topiramate (Topiramate) 50 Mg Tab, 1 TAB PO BID 09/04/23 Pantoprazole Sodium Sesquihydr (Pantoprazole Sodium) 40 Mg Tab, 1 TAB PO BID 09/04/23 Home Meds Home medications reviewed. Current Medications Current Medications Medications (Trade) Dose Ordered Sig/Gabe Route PRN Reason Start Time Stop Time Status Last Admin Acetaminophen/ Hydrocodone Bitart ([place] 5/325MG Tab) 1 tab Q4HP PRN PO MODERATE PAIN (4-6 PAIN SCALE) 01/13/25 15:15 01/13/25 15:51 DC Ondansetron HCl (Zofran) 4 mg Q4HP PRN IV NAUSEA / VOMITING 01/13/25 15:15 Docusate Sodium (Colace Capsule) 100 mg BIDPRN PRN PO FOR CONSTIPATION 01/13/25 15:15 Acetaminophen (Tylenol Tablet) 650 mg Q6HP PRN PO PAIN SCALE 1-3 OR TEMP>100.4 01/13/25 15:15 Morphine Sulfate 4 mg Q4HPRN PRN IV SEVERE PAIN (7-10 PAIN SCALE) 01/13/25 15:15 01/14/25 10:42 DC 01/14/25 08:33 Acetaminophen/ Hydrocodone Bitart ([place] 10/325MG Tab) 1 tab Q6HP PRN PO PAIN SCALE 7 THRU 10 01/13/25 16:00 01/13/25 21:23 DC 01/13/25 20:21 Pantoprazole Sodium (Protonix Tablet) 40 mg BID PO 01/13/25 22:00 01/14/25 08:35 Spironolactone (Aldactone) 25 mg DAILY PO 01/14/25 10:00 01/14/25 08:35 Patient Own Medication 1 tab BID PO 01/13/25 22:00 Topiramate (Topamax) 50 mg BID PO 01/13/25 22:00 01/14/25 08:35 Acetaminophen/ Hydrocodone Bitart ([place] 10/325MG Tab) 1 tab Q6HP PRN PO PAIN SCALE 4-6 OR TEMP>100.4 01/13/25 21:30 Hydromorphone HCl (Dilaudid Injection) 0.25 mg Q4HPRN PRN IV SEVERE PAIN (7-10 PAIN SCALE) 01/14/25 10:45 01/14/25 11:27 Review of Systems Constitutional: No symptom reported Ears, Nose, & Throat: No symptom reported Eyes: No symptom reported Neurological: No symptoms reported Pulmonary/Respiratory: No symptom reported Cardiovascular: No symptom reported Gastrointestinal: No symptom reported Genitourinary: No symptom reported Musculoskeletal: Left shoulder pain Skin: No symptom reported Psychiatric: No symptom reported Endocrine: No symptom reported Hemotologic/Lymphatic: No symptom reported Vital Signs Vital Signs Date Time Temp Pulse Resp B/P (MAP) Pulse Ox O2 Delivery O2 Flow Rate FiO2 01/14/25 11:27 70 20 109/58 01/14/25 09:00 97.9 98 97.9 01/14/25 08:00 Room Air* 0 21 Physical Exam General Appearance: Cooperative. Well developed. Well nourished. In no acute distress Head Exam: Normal inspection Neck Exam: Normal inspection. Non-tender. Normal alignment Pulmonary/Respiratory: Chest non-tender. Clear bilateral breath sounds Cardiovascular/Chest: Regular rate and rhythm. S1, S2. No murmurs. No JVD. Peripheral Pulses: 2+ Radial (R). 2+ Radial (L). 2+ Pedal (R). 2+ Pedal (L) Abdominal Exam: Normal bowel sounds. Soft. Nontender. No hepatospenomegaly. No masses Ankle Exam: Negative ankle edema Lower extremities: Negative lower extremity edema Upper extremities: Sling to left upper extremity Neuro/Mental Status: A&O x4. Coherent Thoughts/Psych: Normal thought pattern. Appropriate mood and affect. Good judgement and insight Appearance: In no acute distress Skin Exam: Normal inspection. Normal color. Warm. Dry Labs/Diagnostic Data Labs Test 01/14/25 07:25 01/13/25 16:05 01/13/25 10:31 Range/Units White Blood Count 5.8 4.4-10.8 10^3/uL Red Blood Count 4.03 L 4.5-5.90 10^6/uL Hemoglobin 9.6 L 13.5-17.5 g/dL Hematocrit 29.6 L 41.0-53.0 % Mean Corpuscular Volume 73.5 L 80.0-100.0 fL Mean Corpuscular Hemoglobin 23.8 L 28.0-32.0 pg Mean Corpuscular Hemoglobin Concent 32.4 32.0-36.0 g/dL Red Cell Distribution Width 22.0 H 11.8-14.3 % Platelet Count 357 140-450 10^3/uL Mean Platelet Volume 7.8 6.9-10.8 fL Neutrophils (%) (Auto) 73.2 37.0-80.0 % Lymphocytes (%) (Auto) 15.2 10.0-50.0 % Monocytes (%) (Auto) 10.1 0.0-12.0 % Eosinophils (%) (Auto) 0.5 0.0-7.0 % Basophils (%) (Auto) 1.0 0.0-2.0 % Neutrophils # (Auto) 4.2 1.6-8.6 10 ^3/uL Lymphocytes # (Auto) 0.9 0.4-5.4 10 ^3/uL Monocytes # (Auto) 0.6 0-1.3 10 ^3/uL Eosinophils # (Auto) 0 0-0.8 10 ^3/uL Basophils # (Auto) 0.1 0-0.2 10 ^3/uL Nucleated Red Blood Cells 0.1 % Sodium Level 140 136-145 mmol/L Potassium Level 3.7 3.5-5.1 mmol/L Chloride Level 107 98-107 mmol/L Carbon Dioxide Level 23 20-31 mmol/L Anion Gap 10 5-15 Blood Urea Nitrogen 15 9-23 mg/dL Creatinine 0.71 0.700-1.30 mg/dL Glomerular Filtration Rate Calc 104 >90 mL/min BUN/Creatinine Ratio 21.1 H 10.0-20.0 Serum Glucose 89 74-106 mg/dL Calcium Level 8.5 L 8.7-10.4 mg/dL Total Bilirubin 0.6 0.2-1.0 mg/dL Aspartate Amino Transferase (AST) 27 13-40 U/L Alanine Aminotransferase (ALT) < 9 7-40 U/L Alkaline Phosphatase 67 46-116 U/L Total Protein 6.0 5.7-8.2 g/dL Albumin 4.0 3.2-4.8 g/dL Prothrombin Time 10.8 9.3-11.8 sec Prothrombin Time INR 1.02 0.9-1.15 Activated Partial Thromboplast Time 27.1 24.5-34.5 SEC Platelet Estimate Adequate Large Platelets Few Hypochromasia (manual) Moderate Poikilocytosis (manual) Slight Anisocytosis (manual) Slight Microcytosis Slight Ovalocytes Few Troponin I High Sensitivity < 3 L </=54 ng/L Assessment Preprocedural cardiovascular examination Close fracture of the left shoulder Mechanical fall injury Anemia Plan/Recommendation (Dr. Thompson) Echocardiogram reveals a preliminary EF 60% without evidence of aortic or mitral valve stenosis. Revised cardiac risk index (Ziyad criteria): Class I at 3.9% risk of , [place] or cardiac arrest. Patient has no underlying history of congestive heart failure, coronary artery disease, and has an optimal functional capacity. Per Cardiology standpoint, the patient is at an acceptable-risk for moderate-risk surgery. There is no additional cardiac workup indicated prior to surgery. Thank you for allowing us to care for this patient. Please call with any questions or concerns. This medical document was created using an electronic medical record system with voice recognition software and computerized dictation system. Although this document has been carefully reviewed, there might still be some phonetic and typographical errors. Occasional wrong-word or ``sound-alike substitutions may have occurred due to the inherent limitations of voice recognition software. These areas are purely typographical due to imperfections of the software programs and do not reflect any compromise in the patient's medical care. Please read the chart carefully and recognize, using context, where these substitutions have occurred. Plan discussed with: Patient, Other NYHA Physical activity limitations: NA Date of Service: Jan 14, 2025 Billing Provider: LORI HERNANDEZ Cardiology Common Codes: 90923-CVTNFOD INP/OBS CARE (High) LORI HERNANDEZ Jan 14, 2025 11:53
[2025-01-14 13:23] LABS: Albumin 3.9 g/dL (3.2-4.8); Alkaline Phosphatase 67.0 U/L (46-116); Bilirubin, Direct 0.2 mg/dL (<0.3); Bilirubin, Total 0.6 mg/dL (0.2-1.0); Total Protein 5.8 g/dL (5.7-8.2)
--- NOTE | 2025-01-14 13:23 | DVHINCON2 ---
Consult Note Consult Consult Note Reason for Consult Evaluation and management of left proximal humerus fracture following ground- level fall. --- History of Present Illness The patient is a 59-year-old male who presented to the emergency room yesterday after sustaining a ground-level fall. He reported immediate onset of severe left shoulder pain and inability to move the arm. Emergency room evaluation included X-rays of the left shoulder, which demonstrated a comminuted and displaced fracture of the proximal humeral metaphysis. He was treated with sling immobilization and admitted for pain control. On follow-up today, the patient continues to complain of significant left shoulder pain despite the sling. He denies any loss of consciousness, head trauma, or pain in other joints. No chest pain, shortness of breath, or abdominal pain reported. He is currently awaiting definitive orthopedic management. no numbness/tingling LUE reported. No other joint pain reported. --- Past Medical & Surgical History Gastrointestinal history: Over 20 years of GI-related issues, including recurrent abdominal herniation. Multiple mesh placement surgeries beginning in the . Complicated by MRSA infections, requiring multiple revision surgeries and prolonged treatments. In the early , the patient experienced an acute GI hemorrhage requiring hospitalization and treatment. Subsequently developed adhesions in the GI tract, requiring revision surgeries around 2002. Reports stable condition over the past 23 years with no recent surgeries, no new GI bleeding, abdominal pain, or complications. Musculoskeletal: Current left proximal humerus fracture as described. Other history: None reported. --- Medications Inpatient pain management regimen (details to be filled per JUL). --- Social History Tobacco: Not reported. Alcohol: Not reported. Illicit drugs: Not reported. --- Review of Systems Musculoskeletal: Severe left shoulder pain, limited range of motion. Neurological: Denies LOC, weakness, numbness, or tingling. Cardiovascular/Respiratory: Denies chest pain, palpitations, dyspnea. Gastrointestinal: Stable; denies abdominal pain, GI bleeding, nausea, vomiting. Constitutional: No fever, chills, or recent weight change. Other systems: Negative as reviewed. --- Physical Examination General: Alert, oriented 3, in moderate distress due to pain. Vital Signs: reviewed HEENT: Normocephalic, atraumatic. Cardiac: Regular rate and rhythm, no murmurs. Pulmonary: Clear to auscultation bilaterally, no wheezes or crackles. Abdomen: Soft, non-tender, non-distended. Well-healed prior surgical scars. No tenderness, guarding, or rebound. Left Upper Extremity: Sling in place. Visible swelling and tenderness over proximal humerus. no open skin lesion Deformity noted consistent with fracture displacement. Severe pain with attempted motion. Skin intact, no open wounds. Neurovascular status intact distally: palpable radial pulse, normal capillary refill, preserved motor and sensory function in hand and forearm. Other extremities: No tenderness, deformity, or swelling. Neuro: Cranial nerves IIXII intact, strength and sensation preserved in all ext remities except limited by pain in the left upper extremity. --- Imaging X-ray (ER): Comminuted and displaced fracture of the proximal humeral metaphysis (left shoulder). --- Assessment 59-year-old male with a displaced, comminuted left proximal humerus fracture following ground-level fall. The fracture pattern will likely require surgical fixation for definitive management. Patient has a significant past surgical history of recurrent GI herniations with mesh placements complicated by MRSA infections, revision surgeries, GI hemorrhage, and adhesions, but has remained clinically stable without surgical interventions for the past 23 years. --- Plan 1. Orthopedic management: Plan for surgical fixation of the left proximal humerus fracture with ORIF Obtain preoperative clearance (cardiac and medical optimization as indicated). Consent obtained and documented for surgical treatment. NPO MIDNIGHT TODAY For surgery on 01/15/2025 2. Pain control: Continue multimodal analgesia for adequate relief and sleep per hospitalist. 3. Immobilization: Maintain sling until surgical intervention. 4. Neurovascular monitoring: Frequent checks of distal pulses and sensation in LUE. 5. Activity: [id number] left upper extremity. Encourage ROM of fingers/wrist to prevent stiffness. 6. GI history considerations: Monitor closely for infection given history of MRSA. Optimize perioperative antibiotics accordingly. GI status currently stable; Consult GI for eval 7. Rehabilitation: Postoperative physical therapy to be arranged after surgical fixation. 8. Disposition: Continue inpatient care pending surgery. Discharge planning after procedure once pain controlled and mobilization initiated. Plan discussed with: Patient, Other (bedside nurse) Visit Coding Surgery Date of Service if different f: Jan 14, 2025 Billing Provider: KAREN KNIGHT Surgery Visit Codes: 21819 - INP CONSULT <55 MIN KAREN KNIGHT Jan 14, 2025 13:23
[2025-01-14 13:24] LABS: Alanine Aminotransferase 9.0 U/L (7-40)
--- NOTE | 2025-01-14 14:13 | DVHINCON2 ---
GI Consult Consult Note GI consult note Date of Consultation: 12/2024 Chief Complaint: Patient with extensive GI history ortho needs clearance for left shoulder ORIF Referring Physician: Arben DAO H&P: 59-year-old male past medical history of restless leg syndrome, depression, chronic pain admitted status post mechanical fall with left shoulder fracture scheduled for surgery tomorrow morning. Patient denies abdominal pain. No nausea vomiting. Last BM yesterday. No melena or red blood in stool Patient gives history of multiple hernia repairs starting in 1991, with mesh placement and subsequent infection with MRSA, and repeat hernia repairs Patient also gives history of small-bowel obstructions about 15 times prior to 2017 Patient had a laparotomy gastric bypass in 2017, and had weight loss which helped with this small-bowel obstruction Patient is still has a large abdominal hernia Patient has history of anemia after his gastric bypass treated with iron supp lements but usually runs hemoglobin between nine and 10 Past Medical History: Depression, chronic pain, restless leg syndrome, abdominal hernia, small-bowel obstruction Past Surgical History: Multiple hernia repair, right shoulder repair Social History: NO smoking, drinking ETOH and use of illegal drugs. Family History: Noncontributory Review of Systems: Constitutional: no fever, chill, weight loss HEENT: no eye pain, no hearing loss, no oral lesion, no scleral icterus Heart: no chest pain, no chest pressure Lung: no cough, no dyspnea with exertion Abdomen: see HPI : no pain with urination, normal appearing urine Musculoskeletal: Shoulder pain Physical exam: General: NAD, AAOX3 Chest: lung werner clear to auscultation Heart: RRR, no murmur Abdomen: no tenderness to palpation, +BS, large abdominal hernia Labs: Labs Test 01/14/25 07:25 01/14/25 07:24 01/13/25 16:05 01/13/25 10:31 Range/Units White Blood Count 5.8 4.4-10.8 10^3/uL Red Blood Count 4.03 L 4.5-5.90 10^6/uL Hemoglobin 9.6 L 13.5-17.5 g/dL Hematocrit 29.6 L 41.0-53.0 % Mean Corpuscular Volume 73.5 L 80.0-100.0 fL Mean Corpuscular Hemoglobin 23.8 L 28.0-32.0 pg Mean Corpuscular Hemoglobin Concent 32.4 32.0-36.0 g/dL Red Cell Distribution Width 22.0 H 11.8-14.3 % Platelet Count 357 140-450 10^3/uL Mean Platelet Volume 7.8 6.9-10.8 fL Neutrophils (%) (Auto) 73.2 37.0-80.0 % Lymphocytes (%) (Auto) 15.2 10.0-50.0 % Monocytes (%) (Auto) 10.1 0.0-12.0 % Eosinophils (%) (Auto) 0.5 0.0-7.0 % Basophils (%) (Auto) 1.0 0.0-2.0 % Neutrophils # (Auto) 4.2 1.6-8.6 10 ^3/uL Lymphocytes # (Auto) 0.9 0.4-5.4 10 ^3/uL Monocytes # (Auto) 0.6 0-1.3 10 ^3/uL Eosinophils # (Auto) 0 0-0.8 10 ^3/uL Basophils # (Auto) 0.1 0-0.2 10 ^3/uL Nucleated Red Blood Cells 0.1 % Sodium Level 140 136-145 mmol/L Potassium Level 3.7 3.5-5.1 mmol/L Chloride Level 107 98-107 mmol/L Carbon Dioxide Level 23 20-31 mmol/L Anion Gap 10 5-15 Blood Urea Nitrogen 15 9-23 mg/dL Creatinine 0.71 0.700-1.30 mg/dL Glomerular Filtration Rate Calc 104 >90 mL/min BUN/Creatinine Ratio 21.1 H 10.0-20.0 Serum Glucose 89 74-106 mg/dL Calcium Level 8.5 L 8.7-10.4 mg/dL Total Bilirubin 0.6 0.2-1.0 mg/dL Aspartate Amino Transferase (AST) 27 13-40 U/L Alanine Aminotransferase (ALT) < 9 7-40 U/L Alkaline Phosphatase 67 46-116 U/L Total Protein 6.0 5.7-8.2 g/dL Albumin 4.0 3.2-4.8 g/dL Direct Bilirubin 0.2 <0.3 mg/dL Prothrombin Time 10.8 9.3-11.8 sec Prothrombin Time INR 1.02 0.9-1.15 Activated Partial Thromboplast Time 27.1 24.5-34.5 SEC Platelet Estimate Adequate Large Platelets Few Hypochromasia (manual) Moderate Poikilocytosis (manual) Slight Anisocytosis (manual) Slight Microcytosis Slight Ovalocytes Few Troponin I High Sensitivity < 3 L </=54 ng/L Imaging: Assessment: Left humerus fracture History of small-bowel obstruction Multiple hernia repair with MRSA infection Status post gastric bypass 2016 Abdominal hernia Plan: Discussed with Dr. Love Stool for occult blood Monitor lab Protonix b.i.d. MiraLax Consider Fleet's enema if no bowel movement with MiraLax Patient is cleared for surgery currently no GI symptoms We will continue to monitor patient Thank you for this consult Date of Service: Jan 14, 2025 Billing Provider: MINGO VANCE Common Visit Codes: CONSULT ONLY Consultation Codes: [id number] CONSULT <60MIN MINGO VANCE Jan 14, 2025 14:13
[2025-01-14] MEDS: POLYETHYLENE GLYCOL 17 GM PWDR PO ONE (14:33)
--- NOTE | 2025-01-14 14:56 | ECG ---
[facility] Test Date: 2025-01-14 Test Time: 09:59:17 Pat Name: MIHAI CASON Department: Room: 0285 A Gender: M Phlebotomy Program Coordinator: BRITTANIE : 1965 Requested By: LORI HERNANDEZ Order Number: [id number] Reading MD: Marquise Thompson Measurements Intervals [place] Rate: 71 P: 27 [place]: 206 QRS: -10 QRSD: 91 T: 22 QT: 406 QTc: 442 Interpretive Statements Sinus rhythm Low voltage, precordial leads Electronically Signed On 01-14-2025 22:24:04 PDT by Marquise Thompson Please click the below link to view image of tracing.
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
--- NOTE | 2025-01-14 16:24 | DVHSR ---
APPROVED REPORT EXAM: Two-dimensional and M-mode echocardiogram with Doppler and color Doppler. Blood Pressure: 114/78 mmHg INDICATION Pre-Op RISK FACTORS Height: 5'7, Weight: 195 DIMENSIONS LVDd4.4 (3.8-5.7cm)LA (2D)4.3 (1.9-4.0cm)Aortic Root3.7 (2.0-3.7cm) LVDs2.9 (2.5-4.0cm)LA (MM) (1.9-4.0cm)Aortic Cusp Exc2.1 (1.5-2.0cm) EF (%) 60.0 (55-70%)Rt. Atrium4.5 (1.9-4.0cm)Asc. Aorta3.7 cm IVSd0.9 (0.7-1.1cm)RV (D) (1.8-2.4cm) PWd0.9 (0.7-1.1cm) Mitral Valve MitralMitral Stenosis E wave0.58m/sMV Mean GR.mmHg A wave0.75m/sMV Peak GR.mmHg E/A ratio0.82D MVAcm2 DECEL [id number] 1/2 Timems Aortic Valve Aortic ValveAortic Stenosis V11.27m/Blaine Mean GR.4mmHg V21.31m/Blaine Peak GR.7mmHg LVOT Diameter2.3 (1.8-2.4cm)Doppler AVA4.03cm2 Pulmonic Valve V21.32m/s Tricuspid Valve TR Velocity1.93m/s [id number] Other Information Quality : Technically LimitedRhythm : Technically limited study due to pts left arm in sling, unable to move or lay down. sitting up. Conclusion LVEF normal at 50-55% Right ventricle is not well visualized, appears mildly dilated with grossly normal function mild left and right atrial dilation no significant valve disease noted
--- NOTE | 2025-01-14 21:29 | DVH ---
EXAM: CT CT L SHOULDER WO CONTRAST INDICATION: SURGICAL EVAL FOR SURGERY ON 01/15/2025 EXAM DATE: 01/14/2025 08:31 PM COMPARISON: None TECHNIQUE: Multiple axial CT images of the left shoulder were obtained using bone algorithm. Axial an d coronal reformatting was done. Bone and soft tissue windows were reviewed. Radiation Dose Information: CT Dose: CTDI volume is 27.13 mGy. Dose-length product is 923.29 mGy*cm Findings/Impression: Moderately displaced, comminuted transverse fracture of the left proximal humerus. Small joint effusion with mild regional soft tissue edema. There is no evidence of dislocation, blastic, or lytic lesions. No radiopaque foreign bodies. Postsurgical changes of the stomach. Small hiatal hernia.
[2025-01-15 05:00] VITALS: BP 120/74; PULSE 68; RESP 20; TEMP 97.6; O2SAT 100
[2025-01-15 09:00] VITALS: BP 98/64; PULSE 70; RESP 17; TEMP 97.5; O2SAT 98
[2025-01-15 10:00] LABS: Hemoglobin 9.9 g/dL (13.5-17.5); Nucleated Red Blood Cells % 0.1 %
[2025-01-15 10:01] LABS: Potassium 3.9 mmol/L (3.5-5.1); Sodium 139 mmol/L (136-145)
[2025-01-15 10:02] LABS: Anion Gap 8 (5-15); Carbon Dioxide 24 mmol/L (20-31)
[2025-01-15 10:03] LABS: Calcium 8.4 mg/dL (8.7-10.4); Chloride 107 mmol/L (98-107)
[2025-01-15 10:04] LABS: Hematocrit 30.9 % (41.0-53.0); Mean Corpuscular Hemoglobin 23.5 pg (28.0-32.0); Mean Corpuscular Volume 73.3 fL (80.0-100.0)
[2025-01-15 10:07] LABS: Glucose 91 mg/dL (74-106)
[2025-01-15 10:08] LABS: BUN/Creatinine Ratio 18.9 (10.0-20.0); Blood Urea Nitrogen 14 mg/dL (9-23)
[2025-01-15] MEDS: SODIUM CHLORIDE 0.9% 1,000 ML IV SCH (11:00)
[2025-01-15 13:00] VITALS: BP 110/72; PULSE 69; RESP 17; TEMP 98; O2SAT 99
[2025-01-15] MEDS ORDERED: LIDOCAINE 2% (LOCAL ANESTH.) PF 5ml SDV ONE (13:06)
[2025-01-15] MEDS ORDERED: KETOROLAC TROMETH 30 MG/ML 1ML VIAL ONE (13:06)
[2025-01-15] MEDS ORDERED: LIDOCAINE HCL 2% TOP JELLY 5ML TOP ONE (13:06)
[2025-01-15] MEDS ORDERED: ONDANSETRON HCL 4 MG/2 ML VIAL ONE (13:06)
[2025-01-15] MEDS ORDERED: PROPOFOL 10 MG/ML 20 ML IV ONE (13:07)
[2025-01-15] MEDS ORDERED: ROCURONIUM 10MG/ML 10ML VIAL IV ONE (13:07)
[2025-01-15] MEDS ORDERED: GLYCOPYRROLATE 0.2 MG/ML 1ML VIAL ONE (13:07)
[2025-01-15] MEDS: CELECOXIB 100 MG CAP ONE (13:40)
[2025-01-15] MEDS: ACETAMINOPHEN IV 100 ML IV ONE (13:41)
[2025-01-15] MEDS: ACETAMINOPHEN IV 1000 MG/100ML (10MG/ML) IV ONE (13:54)
[2025-01-15] MEDS: BUPIVACAINE HCL 50 ML ONE (13:55)
[2025-01-15] MEDS: CELECOXIB 100 MG CAP PO ONE (13:55)
[2025-01-15] MEDS: GABAPENTIN 300 MG CAP PO ONE (13:55)
[2025-01-15] MEDS ORDERED: fentaNYL CITRATE 100 MCG/2 ML VL ONE (13:56)
[2025-01-15] MEDS ORDERED: KETAMINE 50mg/ML 1ml syringe ONE (13:56)
[2025-01-15] MEDS ORDERED: SUGAMMADEX 200mg/2ml Vial (100MG/ML) IV ONE (14:02)
[2025-01-15] MEDS ORDERED: TRANEXAMIC ACID 10 ML ONE ×2 (14:02→14:34)
[2025-01-15] MEDS ORDERED: LIDOCAINE 1% INJ PF 5ML AMP ONE (14:11)
[2025-01-15] MEDS: ceFAZolin 2 GM/D5W50ml 50 ML IV ONE (14:55)
[2025-01-15] MEDS ORDERED: ESMOLOL HCL 10 ML IV ONE (15:01)
[2025-01-15 16:42] VITALS: PULSE 48; RESP 13; O2SAT 99
[2025-01-15] MEDS ORDERED: NALOXONE HCL 0.4 MG/ML VIAL IV PRN (17:00)
[2025-01-15] MEDS ORDERED: hydrALAZINE HCL 20 MG/ML VL IV PRN (17:00)
[2025-01-15] MEDS ORDERED: FLUMAZENIL 0.1 MG/ML INJ 10ML MDV IV PRN (17:00)
[2025-01-15] MEDS ORDERED: ONDANSETRON HCL 4 MG/2 ML VIAL IV PRN (17:00)
[2025-01-15] MEDS: GABAPENTIN 300 MG CAP ONE (17:14)
[2025-01-15] MEDS: BUPIVACAINE HCL 0 ML ONE (17:14)
[2025-01-15] MEDS: HYDROmorphone HCL 2 MG/ML VL/or syr IV PRN ×2 (17:14→23:50)
[2025-01-15] MEDS: BUPIVACAINE 0.25% INJ 50ML VIAL ONE (17:15)
[2025-01-15] MEDS: HYDROmorphone HCL 2 MG/ML VL/or syr ONE (17:15)
[2025-01-15] MEDS: fentaNYL CITRATE 100 MCG/2 ML VL IV PRN (17:25)
[2025-01-15] MEDS ORDERED: ACETAMINOPHEN 325 MG TAB PO PRN (17:45)
[2025-01-15] MEDS: LACTATED RINGER'S 1,000 ML IV SCH (17:45)
[2025-01-15] MEDS: CLINDAMYCIN 600MG IV 50 ML IV SCH (18:46)
--- NOTE | 2025-01-15 19:08 | DVH ---
CLINICAL INDICATION: Post op evaluation TECHNIQUE: 3 radiographic views of the left shoulder were obtained. Comparison: CT CT L SHOULDER WO CONTRAST on DOS: 01/14/25, XY L SHOULDER 2+ VIEW XRAY on DOS: 01/13/25, XY L ELBOW 2 VIEW XRAY on DOS: 01/13/25 FINDINGS/IMPRESSION: There is postsurgical changes of intramedullary tammy and screw fixation of the proximal humeral fractu re with the bony fragments in near anatomic alignment. There is left shoulder and left lateral proxim al humerus skin melecio with mild soft tissue edema consistent with recent surgery. Diffuse deminera lization. No dislocation. Left basilar atelectasis.
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
--- NOTE | 2025-01-15 19:42 | DVH ---
EXAM: XY L SHOULDER 1V XRAY, XY C ARM FLUOROSCOPY UP TO 60MIN HISTORY: ORIF LEFT SHOULDER TECHNIQUE: Intraoperative radiographs of the left shoulder were obtained. FLUOROSCOPY TIME: 86.2 seconds FLUOROSCOPY IMAGES: 25 TOTAL DOSE: 6.74 mGy COMPARISON: XY L SHOULDER 2+ VIEW XRAY on DOS: 01/13/25, XY L SHOULDER 2+ VIEW XRAY on DOS: 09/18/24 FINDINGS/IMPRESSION: Refer to intraoperative report for further evaluation.
[2025-01-15 19:46] LABS: Hematocrit 33.4 % (41.0-53.0); Hemoglobin 10.6 g/dL (13.5-17.5); Mean Corpuscular Hemoglobin 23.4 pg (28.0-32.0); Mean Corpuscular Volume 73.8 fL (80.0-100.0); Nucleated Red Blood Cells % 0.1 %
[2025-01-15 20:00] VITALS: RESP 18
[2025-01-15 21:00] VITALS: BP 99/65; PULSE 91; RESP 18; TEMP 98.2; O2SAT 97
[2025-01-15] MEDS: HYDROcodone-ACET 5/325MG TAB PO PRN (21:33)
[2025-01-16] VITALS (7 sets, daily range): BP systolic 95–120; BP diastolic 56–75; PULSE 57–90; RESP 17–18; TEMP 97.6–97.9; O2SAT 95–98
[2025-01-16 06:30] LABS: Chloride 107 mmol/L (98-107); Potassium 4.0 mmol/L (3.5-5.1); Sodium 137 mmol/L (136-145)
[2025-01-16 06:31] LABS: Anion Gap 10 (5-15); Carbon Dioxide 20 mmol/L (20-31)
[2025-01-16 06:36] LABS: BUN/Creatinine Ratio 21.8 (10.0-20.0); Blood Urea Nitrogen 17 mg/dL (9-23)
[2025-01-16 06:38] LABS: Calcium 8.6 mg/dL (8.7-10.4); Glucose 115 mg/dL (74-106)
[2025-01-16] MEDS: HYDROcodone-ACET 10/325MG TAB PO PRN (06:40)
[2025-01-16 06:42] LABS: Hematocrit 30.1 % (41.0-53.0); Hemoglobin 9.6 g/dL (13.5-17.5); Mean Corpuscular Hemoglobin 23.3 pg (28.0-32.0); Mean Corpuscular Volume 73.4 fL (80.0-100.0); Nucleated Red Blood Cells % 0.0 %
--- NOTE | 2025-01-16 09:17 | DVHOP ---
PREOPERATIVE DIAGNOSIS: Left proximal humerus 2-part fracture, closed. POSTOPERATIVE DIAGNOSIS: Left proximal humerus 2-part fracture, closed. PROCEDURE PERFORMED: Left humerus percutaneous open reduction and internal fixation with intramedullary nailing. ANESTHESIA: General with interscalene block. COMPLICATIONS: None. IMPLANTS USED: Synthes 9 mm humerus nail with 3 proximal screws and 2 distal screws. SPICE MIXER: Nadeen Almeida PA-C. INDICATION FOR PROCEDURE: The patient presented to the Emergency Room with a history of fall and injury to the left arm. Clinical and radiological evaluation demonstrated displaced surgical neck 2-part humerus fracture. Nonoperative and operative management options were discussed. The patient is otherwise a young 59-year-old and otherwise active who wanted to consider surgical option. Pros and cons were discussed. Surgical complications including neurovascular injury, infection, arthrofibrosis, loss of limb or life were discussed. Surgery in the form of closed versus open reduction of the proximal humerus fracture was discussed. he wanted to proceed with the surgery. PROCEDURE IN DETAIL: The patient was identified in the preoperative holding area and the surgical site was marked. The consent was verified. He was brought into the operating room and placed supine on the operating table. General anesthesia was administered. Intravenous antibiotics were given. The extremity was prepped and draped in the usual sterile manner. A timeout was called out to confirm the identity of the patient, the nature of surgery, the site of surgery, the availability of implants and x-rays and allergies to medications. He was in a beach-chair position around 45 degrees. All the bony prominences were appropriately padded. His head was secured to the beach-chair attachment. The C-arm was brought in before prepping and draping to confirm the positioning in AP and lateral views. An incision was made anterior to the AC joint. The skin and subcutaneous tissue were dissected. The deltoid muscle was split. The supraspinatus muscle and tendon were clearly identified. No obvious tear was noted. An incision was made over the musculotendinous junction of the supraspinatus. The humeral head cartilage was exposed. The entry point was medial to the footprint to preserve the attachment of the supraspinatus. A guide pin was inserted. A reamer was now inserted on top of it. Next, a 9 mm nail was opened up. Sequential reamers were used over a long olive tip wire to ream the proximal and the distal part. Prior to this step, the fracture was reduced with a percutaneous open approach. Significant medial translation and posterior translation was noted. For this, a small incision was made over the lateral aspect of the humerus. A hemostat was now entered and the distal portion was levered posteriorly as well as laterally to align the fracture fragments. The nail was inserted to correct slight varus tilting. Acceptable reduction was noted. Two proximal screws were inserted. Initially, the nail was 7 mm deeper to the surface, but it had to be pulled back somewhat so as to avoid the axillary nerve area between 5 and 7 cm from the tip of the acromion. This did end up making the nail a little proud and flush with the cartilage; however, this was necessary to aim the proximal screws away from the axillary nerve. Distal screws were then inserted, 2 screws were inserted. One had a very good fixation, the other was two-finger tight. The irrigation was given proximally as well as distally at various increments. AP and lateral views were obtained with the C-arm in internal and external rotation to ensure the screw trajectory, the fracture reduction, the nail positioning and the overall alignment. After insertion of all screws, the jig was removed and the arm was brought into axillary lateral, and AP, internal and external rotation was used to confirm that the screws are not in the joint and the alignment is acceptable. Three proximal screws were inserted, one from the greater tuberosity posteriorly, one anteriorly to the lesser tuberosity, and one laterally. All the skin incisions were followed by hemostat spreading of the soft tissues to ensure there were no critical neurovascular structures before inserting the screws. The rotator cuff muscle tendon split was closed with a 2 or 3 Ethibond sutures for an excellent closure. The nail was noted to be flush with the cartilage, which gave an appearance of being slightly proud on x-rays, but could be visualized that it is flush and not too proud. DISPOSITION: Good, a thorough irrigation was given and the skin incisions were closed with nylon stitches and Vicryl for the subcutaneous layer. Sterile dressing was applied and arm was placed in a sling. The patient was extubated and taken to the recovery without any complications. PLAN: Start immediate passive range of motion, internal and external rotation is allowed, passive abduction as tolerated, passive flexion as tolerated. He will initiate active-assisted range of motion after 4 weeks and active range of motion after 6 weeks. The patient may be followed up in inpatient and discharged in a day or two. MD PAIGE Rob/EMILIANO/ALEX TID: [id number] RECEIPT: [id number]
--- NOTE | 2025-01-16 12:47 | DVHPN2 ---
MINGO VANCE 01/16/25 1247: Subjective sp shoulder surg no abd pain no N/V pt able tp pass gas. No Bm yet able to tolerate regular diet Changes from previous H/P or p: No Changes Eyes: No Pain, No Vision change, No Conjunctivae inflammation, No Eyelid inflammation, No Other, No Redness ENT: No Ear pain, No Ear discharge, No Nose pain, No Nose discharge, No Nose congestion, No Mouth pain, No Mouth swelling, No Throat pain, No Throat swelling, No Other Cardiovascular: No Chest Pain, No Palpitations, No Orthopnea, No Paroxysmal Noc. Dyspnea, No Edema, No Lt Headedness, No Other Respiratory: No Cough, No Dry, No Shortness of breath, No SOB with excertion, No Wheezing, No Hemoptysis, No Pleuritic Pain, No Sputum, No Other Gastrointestinal: No Nausea, No Vomiting, No Abdominal Pain, No Diarrhea, No Constipation, No Melena, No Hematochezia, No Other Genitourinary: No Dysuria, No Frequency, No Incontinence, No Hematuria, No Retention, No Other Musculoskeletal: No other, No neck pain; shoulder pain (left); No arm pain, No back pain, No hand pain, No leg pain, No foot pain Skin: No Rash, No Lesions, No Jaundice, No Bruising, No Other Objective Vitals Vital Signs Date Time Temp Pulse Resp B/P (MAP) Pulse Ox O2 Delivery O2 Flow Rate FiO2 01/16/25 09:00 97.9 68 18 105/67 (80) 96 97.9 01/16/25 08:00 Room Air* 0 21 Intake/Output Intake and Output 01/16/25 07:00 Intake Total 1100 ml Output Total 300 ml Balance 800 ml Intake Oral 800 ml IV Total 300 ml Output Urine Total 300 ml General Appearance: Alert, Oriented X3, Cooperative, No acute distress, mild distress, moderate distress, severe distress, Other Lungs: Clear to auscultation, Normal air movement, Other Cardiovascular: Regular rate, Normal S1, Normal S2, No murmurs, Gallops, Rubs, Other Abdomen: Normal bowel sounds, Soft, No tenderness, No hepatospenomegaly, No masses, Other Medications Current Medications Medications Dose Ordered Sig/Gabe Route Start Time Stop Time Status Last Admin Dose Admin Ondansetron HCl 4 mg Q4HP PRN IV 01/13/25 15:15 Docusate Sodium 100 mg BIDPRN PRN PO 01/13/25 15:15 Pantoprazole Sodium 40 mg BID PO 01/13/25 22:00 01/16/25 09:41 40 MG Spironolactone 25 mg DAILY PO 01/14/25 10:00 01/16/25 09:41 25 MG Patient Own Medication 1 tab BID PO 01/13/25 22:00 Topiramate 50 mg BID PO 01/13/25 22:00 01/16/25 09:41 50 MG Oxycodone HCl 10 mg ONCE PRN PO 01/15/25 17:00 01/15/25 17:43 10 MG Lactated Ringer's 1,000 ml @ 100 mls/hr Q10H IV 01/15/25 17:45 Acetaminophen 650 mg Q6HP PRN PO 01/15/25 17:45 Acetaminophen/ Hydrocodone Bitart 1 tab Q4HP PRN PO 01/15/25 17:45 01/15/25 21:33 1 TAB Hydromorphone HCl 1 mg Q2HP PRN IV 01/15/25 17:45 01/15/25 23:50 1 MG Acetaminophen/ Hydrocodone Bitart 1 tab Q4HP PRN PO 01/15/25 17:45 01/16/25 06:40 1 TAB Laboratory Results Laboratory Tests 01/16/25 06:14 Chemistry Test 01/16/25 06:14 Calcium Level 8.6 mg/dL (8.7-10.4) L Microbiology Microbiology Date/Time Source Procedure Growth Status 01/14/25 22:32 Nose MRSA Screen - Final Complete Labs and/or images reviewed: Labs reviewed by me, Image(s) reviewed by me Assessment/Plan Assessment/Plan Left humerus fracture sp repair History of small-bowel obstruction Multiple hernia repair with MRSA infection Status post gastric bypass 2017 Abdominal hernia Plan Discussed with Dr. Love Stool softeners Consider MiraLax as needed if no bowel movement in 1-2 days Recommend outpatient GI clinic next available appointment Plan discussed with: Patient Date of Service: Jan 16, 2025 Billing Provider: MINGO VANCE Common Visit Codes: [id number] INP/OBS CARE(HIGH) JOE FARMER MD 01/18/25 2004: Date of Service: Jan 16, 2025 Billing Provider: JOE FARMER MD Common Visit Codes: [id number] INP/OBS CARE(HIGH) MINGO VANCE Jan 16, 2025 12:47 JOE FARMER MD Jan 18, 2025 20:04
[2025-01-16 13:41] LABS: Urine Protein, UAD Negative (Negative)
--- NOTE | 2025-01-16 14:14 | DVHPNRES ---
Progress Note Date Seen: Jan 16, 2025 Resident Creating Document: DANN ROMERO RESIDENT Medical Necessity Reason Pt with a Central, PICC or Fol: No Objective vital signs Vital Sign Date Time Temp Pulse Resp B/P (MAP) Pulse Ox O2 Delivery O2 Flow Rate FiO2 01/16/25 09:00 97.9 68 18 105/67 (80) 96 97.9 01/16/25 08:00 Room Air* 0 21 Total Intake and Output 01/15/25 01/15/25 01/16/25 15:00 23:00 07:00 Intake Total 150 ml 50 ml 900 ml Output Total 300 ml Balance 150 ml 50 ml 600 ml medications Current Medications Medications Dose Ordered Sig/Gabe Route Start Time Stop Time Status Last Admin Dose Admin Ondansetron HCl 4 mg Q4HP PRN IV 01/13/25 15:15 Docusate Sodium 100 mg BIDPRN PRN PO 01/13/25 15:15 Pantoprazole Sodium 40 mg BID PO 01/13/25 22:00 01/16/25 09:41 40 MG Spironolactone 25 mg DAILY PO 01/14/25 10:00 01/16/25 09:41 25 MG Patient Own Medication 1 tab BID PO 01/13/25 22:00 Topiramate 50 mg BID PO 01/13/25 22:00 01/16/25 09:41 50 MG Oxycodone HCl 10 mg ONCE PRN PO 01/15/25 17:00 01/15/25 17:43 10 MG Lactated Ringer's 1,000 ml @ 100 mls/hr Q10H IV 01/15/25 17:45 Acetaminophen 650 mg Q6HP PRN PO 01/15/25 17:45 Acetaminophen/ Hydrocodone Bitart 1 tab Q4HP PRN PO 01/15/25 17:45 01/15/25 21:33 1 TAB Hydromorphone HCl 1 mg Q2HP PRN IV 01/15/25 17:45 01/15/25 23:50 1 MG Acetaminophen/ Hydrocodone Bitart 1 tab Q4HP PRN PO 01/15/25 17:45 01/16/25 06:40 1 TAB laboratory and microbiology Laboratory Tests 01/16/25 06:14 Test 01/16/25 06:14 Range/Units Serum Glucose 115 H 74-106 mg/dL Microbiology Date/Time Source Procedure Growth Status 01/14/25 22:32 Nose MRSA Screen - Final Complete Problem List/Assessment/Plan Problem List/Assessment/Plan # Closed fracture of left shoulder # s/p mechanical fall Orthopedic surgery: screw fixation of the proximal humeral fracture Cardiology consult for cardiac clearance PT/PTT ECHO EKG Tylenol [place] Dilaudid Zofran Shoulder X-Ray: No glenohumeral joint space dislocation. Comminuted and displaced fracture of the proximal humeral metaphysis. Elbow X-Ray: There is no evidence of acute fracture or dislocation. Soft tissues are unremarkable. Chest X-Ray: No acute disease. Post-op Shoulder X-Ray: There is postsurgical changes of intramedullary tammy and screw fixation of the proximal humeral fracture with the bony fragments in near anatomic alignment. There is left shoulder and left lateral proximal humerus skin melecio with mild soft tissue edema consistent with recent surgery. Diffuse demineralization. No dislocation. Left basilar atelectasis. 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
[2025-01-16] MEDS: ONDANSETRON HCL 4 MG/2 ML VIAL IV PRN (14:38)
--- NOTE | 2025-01-16 16:17 | DVHPN2 ---
Progress Note - Dictate Date Seen: Jan 16, 2025 Medical Necessity Reason Pt with a Central, PICC or Fol: No Subjective Patient was lying comfortably in bed during my evaluation reports some postoperative shoulder pain that is being well managed with the help of pain medication. Patient notes that he has been working with physical therapy on gait training as well as adjusting himself in bed without hurting his arm. Patient reports some mild tingling to his hand and reports that he feels that his block is starting to wear off but is otherwise feeling well denying any other complaints or concerns during today's evaluation. vital signs Vital Sign Date Time Temp Pulse Resp B/P (MAP) Pulse Ox O2 Delivery O2 Flow Rate FiO2 01/16/25 14:38 78 16 111/66 01/16/25 13:00 97.9 95 97.9 01/16/25 08:00 Room Air* 0 21 Total Intake and Output 01/15/25 01/15/25 01/16/25 15:00 23:00 07:00 Intake Total 150 ml 50 ml 900 ml Output Total 300 ml Balance 150 ml 50 ml 600 ml medications Current Medications Medications Dose Ordered Sig/Gabe Route Start Time Stop Time Status Last Admin Dose Admin Ondansetron HCl 4 mg Q4HP PRN IV 01/13/25 15:15 01/16/25 14:38 4 MG Docusate Sodium 100 mg BIDPRN PRN PO 01/13/25 15:15 Pantoprazole Sodium 40 mg BID PO 01/13/25 22:00 01/16/25 09:41 40 MG Spironolactone 25 mg DAILY PO 01/14/25 10:00 01/16/25 09:41 25 MG Patient Own Medication 1 tab BID PO 01/13/25 22:00 Topiramate 50 mg BID PO 01/13/25 22:00 01/16/25 09:41 50 MG Oxycodone HCl 10 mg ONCE PRN PO 01/15/25 17:00 01/15/25 17:43 10 MG Lactated Ringer's 1,000 ml @ 100 mls/hr Q10H IV 01/15/25 17:45 01/16/25 15:53 100 MLS/HR Acetaminophen 650 mg Q6HP PRN PO 01/15/25 17:45 Acetaminophen/ Hydrocodone Bitart 1 tab Q4HP PRN PO 01/15/25 17:45 8/21/25 21:33 1 TAB Hydromorphone HCl 1 mg Q2HP PRN IV 01/15/25 17:45 01/16/25 14:38 1 MG Acetaminophen/ Hydrocodone Bitart 1 tab Q4HP PRN PO 01/15/25 17:45 01/16/25 06:40 1 TAB objective A&O x4 in no acute distress Shoulder range of motion not fully evaluated as patient remains in sling Aquacel dressing clean, dry, and intact No distal edema or calf tenderness to palpation Neurovascularly intact with cap refill less than 2 seconds laboratory and microbiology Laboratory Tests 01/16/25 06:14 Test 01/16/25 06:14 Range/Units Serum Glucose 115 H 74-106 mg/dL Assessment/Plan I had a lengthy discussion with the patient and advised him to continue his sling but may come out to perform gentle [id number] exercises of his hand, wrist, elbow, as well as gentle exercises such as pendulum swings and table slides. I informed the patient to maintain his dressings clean, dry, and intact and to call our office to schedule his 1st postoperative evaluation in 10-14 days for further evaluation and wound care. The patient understood and agreed. Thank you for allowing us to participate in the care of your patient. Plan discussed with: Patient TEENA EATON Jan 16, 2025 16:17
[2025-01-16] MEDS: BISACODYL 10 MG RECT SUPP PR ONE (17:28)
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
[2025-01-17 01:00] VITALS: BP 103/53; PULSE 84; RESP 15; TEMP 98.2; O2SAT 94
[2025-01-17 05:00] VITALS: BP_SYST 119; BP_SYST 83; BP_DIAS 45; BP_DIAS 57; PULSE 67; PULSE 72; RESP 15; RESP 16; TEMP 97.7; O2SAT 96; O2SAT 97
[2025-01-17 05:52] LABS: Hematocrit 34.1 % (41.0-53.0); Hemoglobin 10.8 g/dL (13.5-17.5); Mean Corpuscular Hemoglobin 23.2 pg (28.0-32.0); Mean Corpuscular Volume 73.1 fL (80.0-100.0); Nucleated Red Blood Cells % 0.1 %
[2025-01-17 05:56] LABS: Chloride 106 mmol/L (98-107); Potassium 4.0 mmol/L (3.5-5.1); Sodium 140 mmol/L (136-145)
[2025-01-17 05:57] LABS: Anion Gap 11 (5-15); Carbon Dioxide 23 mmol/L (20-31)
[2025-01-17 06:01] LABS: Calcium 8.6 mg/dL (8.7-10.4)
[2025-01-17 06:02] LABS: BUN/Creatinine Ratio 20.0 (10.0-20.0); Blood Urea Nitrogen 17 mg/dL (9-23); Glucose 88 mg/dL (74-106)
[2025-01-17 09:12] VITALS: BP 111/64; PULSE 76; RESP 20; TEMP 98; O2SAT 97
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
== END 2025-01-17 09:15 | disposition home or self-care (01) | DRG 494 ==
LOC: EDBD 10:09 → EDSEX 10:09 → ER 10:09 → OVERFLOW 15:06 → WEST WING 18:50
PROVIDERS: ADMIT Internal Medicine Geriatric Medicine; ATTEND Internal Medicine Geriatric Medicine
PROC: 0PSD06Z Reposition Left Humeral Head with Intramedullary Internal Fixation Device, Open Approach (ICD-10-PCS; principal; 2025-01-16)
DX: S42.292A Other displaced fracture of upper end of left humerus, initial encounter for closed fracture (principal); G25.81 Restless legs syndrome; F32.A Depression, unspecified; G89.29 Other chronic pain; B95.62 Methicillin resistant Staphylococcus aureus infection as the cause of diseases classified elsewhere; D64.9 Anemia, unspecified; K46.9 Unspecified abdominal hernia without obstruction or gangrene; K21.9 Gastro-esophageal reflux disease without esophagitis; W18.30XA Fall on same level, unspecified, initial encounter; Z80.8 Family history of malignant neoplasm of other organs or systems; Z82.49 Family history of ischemic heart disease and other diseases of the circulatory system; Z83.3 Family history of diabetes mellitus; Z87.442 Personal history of urinary calculi; Z98.84 Bariatric surgery status; Z79.899 Other long term (current) drug therapy; Y93.89 Activity, other specified; Y92.89 Other specified places as the place of occurrence of the external cause; Y99.8 Other external cause status
CPT/HCPCS: 36415; 71045; 73020; 73030; 73070; 73200; 76000; 80048; 80053; 80076; 81001; 84484; 85025; 85610; 85730; 86850; 86900; 86901; 87081; 93005; 93306; 96361; 96374; 96375; 97163; G0378; J0131; J0169; J1100; J1885; J2003; J2405; J2704; J3490

== ENCOUNTER 2025-03-03 21:29 | Inpatient (IN) | payer BC, MEDICARE ==
[~2025-03-03] VITALS: Ht 170.2 cm; Wt 81.8 kg
[~2025-03-03 21:29] MED LIST changes: -BUPR200T49 PO; -TERB250T92 PO
[2025-03-03 22:21] LABS: Hematocrit 34.7 % (41.0-53.0); Hemoglobin 11.2 g/dL (13.5-17.5); Mean Corpuscular Hemoglobin 24.2 pg (28.0-32.0); Mean Corpuscular Volume 74.8 fL (80.0-100.0); Nucleated Red Blood Cells % 0.0 %
--- NOTE | 2025-03-03 22:29 | DVH ---
Exam: CT CT AB PEL WO CON-NO ORAL OR IV History: abd pain h/o sbo Comparison Study: CT CT AB PEL WO CON-NO ORAL OR IV on DOS: 09/04/23, CT CT AB PEL WO CON-NO ORAL OR IV on DOS: 06/27/23 Technique: Multidetector spiral CT of the abdomen was performed from lung bases to pubic symphysis. I maging was performed without IV contrast. Axial, coronal and sagittal multiplanar reformats were obta ined from the axial data set by the technologist. Radiation Dose : 1. Abdomen/Pelvis: CTDIvol 15.26 mGy, DLP 719.6 mGy*cm. Findings: Evaluation of solid organs is limited due to lack of intravenous contrast use. Exam is further limite d by streak and beam hardening artifact from arms down positioning. Lower Chest: No acute findings. Liver: Unremarkable. Gallbladder and Biliary Tree: Unremarkable Pancreas: Mild atrophy. Spleen: Unremarkable. Adrenal Glands: Superior calcification. Kidneys/Ureters: No urinary stone or obstruction. Bladder: Grossly unremarkable for degree of distention. Pelvic Organs: Unremarkable as visualized. Bowel: Diffusely dilated and fluid-filled distal esophagus. Redemonstrated postsurgical change of th e stomach and small bowel compatible with Daniela-en-Y gastric bypass. A majority of the proximal to mid small bowel loops are dilated with air-fluid levels, with a distal small bowel loops decompressed. E vidence of a transition point within the large ventral hernia/diastasis. The appendix is not visualiz ed. The large bowel is normal in caliber without wall thickening, and diffuse moderate stool burden. Vasculature: Unremarkable. Lymphadenopathy: No obvious adenopathy. Peritoneum: No ascites, free air, or fluid collection. Abdominal Wall: Development of a large ventral abdominal hernia/defect containing significantly more length of small and large bowel loops from the comparison exam. Prior hernia repair material is prese nt. Musculoskeletal: No acute finding. Degenerative changes of the spine. IMPRESSION: Enlargement of the ventral abdominal wall hernia/defect containing multiple small and large bowel loo ps, increased from the prior exam. Small bowel transition point suspected within the hernia sac, with upstream dilation extending to the esophagus. Findings are consistent with at least partial high-gra de small bowel obstruction. Recommend enteric decompression and further follow-up. Radiation optimization: All CT scans at this facility use at least one of these dose optimization diego hniques: automated exposure control mA and/or kV adjustment per patient size (includes targeted exam s where dose is matched to clinical indication) or iterative reconstruction.
[2025-03-03 22:31] LABS: Alanine Aminotransferase 10 U/L (7-40); Albumin 3.9 g/dL (3.2-4.8); Anion Gap 10 (5-15); BUN/Creatinine Ratio 19.8 (10.0-20.0); Blood Urea Nitrogen 18 mg/dL (9-23); Carbon Dioxide 23 mmol/L (20-31); Glucose 88 mg/dL (74-106); Lipase 35 U/L (12-53); Potassium 4.1 mmol/L (3.5-5.1); Sodium 140 mmol/L (136-145); Total Protein 6.6 g/dL (5.7-8.2)
[2025-03-03 22:41] LABS: Alkaline Phosphatase 117 U/L (46-116); Bilirubin, Total 0.3 mg/dL (0.2-1.0); Calcium 8.7 mg/dL (8.7-10.4); Chloride 107 mmol/L (98-107)
--- NOTE | 2025-03-03 22:53 | ED.PDOC ---
GI ASSESSMENT HPI Comments 59-year-old male presented to the ER with a chief complaint of lower abdominal pain, intractable nausea and vomiting which started earlier today, patient had a bowel movement earlier this morning around 4, liquid in consistency, following which he has been experiencing lower abdominal pain, nonradiating, crampy, along with nausea and vomiting, 4x, nonbloody, reports that he can not keep solids or liquid food down, denies passing gas. Patient was seen earlier in this facility 11/2024 for similar reason and was diagnosed with SBO. Past medical/surgical history: Daniela en Y 2016, multiple recurrent ventral hernias, right humerus fracture 2024 Patient seen and examined in ER lobby. Abdominal Tenderness noted over the ventral hernia site, soft, partially reducible. Surgical consultation pending. Chief Complaint: Abdominal Pain Time Seen by MD: 22:39 Primary Care Provider: STACEY Villegas Notes: Nurses Notes Allergies: Coded Allergies: NO KNOWN ALLERGIES (Unverified , 09/04/23) Home Meds Reported Medications Spironolactone (Spironolactone) 25 Mg Tab, 1 TAB PO DAILY, #90 TAB 1 Refill 12/21/24 Hydrocodone-Acetaminophen (Hydrocodone/Acetaminophen 10-325 mg) 1 Tab Tab, 1 TAB PO Q6HP PRN for PAIN SCALE 7 THRU 10, TAB 09/04/23 Topiramate (Topiramate) 50 Mg Tab, 1 TAB PO BID 09/04/23 Pantoprazole Sodium Sesquihydr (Pantoprazole Sodium) 40 Mg Tab, 1 TAB PO BID 09/04/23 Information Source: Patient Mode of Arrival: Ambulatory Timing: Hours Duration: Since onset Quality: Aching, Cramping Vomitus: Food Particles Stool: Loose Severity: Moderate Past Medical History PAST MEDICAL HISTORY: Kidney Stones Surgical History: Hernia Repair Family History Family History: Reviewed,noncontributory to illness Social History Smoker: Non-Smoker Alcohol: Denies ETOH Use Drugs: Denies Drug Use Lives In: Home Constitutional: denies: chills, diaphoresis, fatigue, fever, malaise, sweats, weakness, others EENTM: denies: blurred vision, double vision, ear bleeding, ear discharge, ear drainage, ear pain, ear ringing, eye pain, eye redness, hearing loss, mouth pain, mouth swelling, nasal discharge, nose bleeding, nose congestion, nose pain, photophobia, tearing, throat pain, throat swelling, voice changes, others Respiratory: denies: cough, hemoptysis, orthopnea, SOB at rest, shortness of breath, SOB with excertion, stridor, wheezing, others Cardiovascular: denies: chest pain, dizzy spells, diaphoresis, Dyspnea on exertion, edema, irregular heart beat, left arm pain, lightheadedness, palpitations, PND, syncope, others Gastrointestinal: reports: abdominal pain, constipated, nausea, vomiting Genitourinary: denies: burning, dysuria, flank pain, frequency, hematuria, incontinence, penile discharge, penile sore, pain, testicle pain, testicle swelling, urgency, others Neurological: denies: dizziness, fainting, headache, left sided numbness, left sided weakness, numbness, paresthesia, pre-existing deficit, right sided numbness, right sided weakness, seizure, speech problems, tingling, tremors, weakness, others Musculoskeletal: denies: back pain, gout, joint pain, joint swelling, muscle pain, muscle stiffness, neck pain, others Integumetry: denies: bruises, change in color, change in hair/nails, dryness, laceration, lesions, lumps, rash, wounds, others Allergic/Immunocompromised: denies: Difficulty Healing, Frequent Infections, Hives, Itching, others Hematologic/Lymphatic: denies: anemia, blood clots, easy bleeding, easy bruising, swollen glands, others Endocrine: denies: excessive hunger, excessive sweating, excessive thirst, excessive urination, flushing, intolerance to cold, intolerance to heat, unexplained weight gain, unexplained weight loss, others Psychiatric: denies: anxiety, bipolar disorder, depression, hopeless, panic disorder, schizophrenia, sleepless, suicidal, others Physical Exam General Appearance: Mild Distress HEENT: Cornea (L), Cornea (R) Neck: NOT DONE Respiratory: No Respiratory Distress, Normal Breath Sounds Cardiovascular: No Edema, None, Regular Rate/Rhythm Breast Exam: Deferred Gastrointestinal: Epigastric, Tenderness, Other (Ventral hernia, soft but tend er) Genitalia: Deferred Pelvic: Deferred Rectal: Rectal Exam not done Extremities: Leg edema (Trace), Non-tender Neurologic: NOT DONE Cerebellar Function: NOT DONE Reflexes: NOT DONE Skin: Dry Lymphatic: NOT DONE Was a procedure done? Was a procedure done?: No GI differential Dx Differential Diagnosis: Gastritis/PUD Other Differential Diagnosis Hernia incarceration/SBO/ileus X-Ray, Labs, Meds, VS Vital Signs Date Time Temp Pulse Resp B/P (MAP) Pulse Ox O2 Delivery O2 Flow Rate FiO2 03/03/25 21:31 97.6 80 20 124/77 95 97.6 Lab Test 03/03/25 21:56 Range/Units White Blood Count 6.0 4.4-10.8 10^3/uL Red Blood Count 4.63 4.5-5.90 10^6/uL Hemoglobin 11.2 L 13.5-17.5 g/dL Hematocrit 34.7 L 41.0-53.0 % Mean Corpuscular Volume 74.8 L 80.0-100.0 fL Mean Corpuscular Hemoglobin 24.2 L 28.0-32.0 pg Mean Corpuscular Hemoglobin Concent 32.4 32.0-36.0 g/dL Red Cell Distribution Width 20.6 H 11.8-14.3 % Platelet Count 429 140-450 10^3/uL Mean Platelet Volume 7.1 6.9-10.8 fL Neutrophils (%) (Auto) 68.9 37.0-80.0 % Lymphocytes (%) (Auto) 19.8 10.0-50.0 % Monocytes (%) (Auto) 9.2 0.0-12.0 % Eosinophils (%) (Auto) 1.0 0.0-7.0 % Basophils (%) (Auto) 1.1 0.0-2.0 % Neutrophils # (Auto) 4.2 1.6-8.6 10 ^3/uL Lymphocytes # (Auto) 1.2 0.4-5.4 10 ^3/uL Monocytes # (Auto) 0.6 0-1.3 10 ^3/uL Eosinophils # (Auto) 0.1 0-0.8 10 ^3/uL Basophils # (Auto) 0.1 0-0.2 10 ^3/uL Nucleated Red Blood Cells 0.0 % Prothrombin Time 10.3 9.3-11.8 sec Prothrombin Time INR 0.97 0.9-1.15 Activated Partial Thromboplast Time 28.2 24.5-34.5 SEC Sodium Level 140 136-145 mmol/L Potassium Level 4.1 3.5-5.1 mmol/L Chloride Level 107 98-107 mmol/L Carbon Dioxide Level 23 20-31 mmol/L Anion Gap 10 5-15 Blood Urea Nitrogen 18 9-23 mg/dL Creatinine 0.91 0.700-1.30 mg/dL Glomerular Filtration Rate Calc 96 >90 mL/min BUN/Creatinine Ratio 19.8 10.0-20.0 Serum Glucose 88 74-106 mg/dL Hemoglobin A1c 5.1 <5.7 % A1C Lactic Acid Level 0.6 0.4-2.0 mmol/L Calcium Level 8.7 8.7-10.4 mg/dL Phosphorus Level 3.7 2.4-5.1 mg/dL Magnesium Level 2.1 1.6-2.6 mg/dL Total Bilirubin 0.3 0.2-1.0 mg/dL Aspartate Amino Transferase (AST) 30 13-40 U/L Alanine Aminotransferase (ALT) 10 7-40 U/L Alkaline Phosphatase 117 H 46-116 U/L Troponin I High Sensitivity 3 L </=54 ng/L Total Protein 6.6 5.7-8.2 g/dL Albumin 3.9 3.2-4.8 g/dL Lipase 35 12-53 U/L Vitamin B12 Level 1609 H 211-911 pg/mL Vitamin D 25-Hydroxy 45.6 30.0-100 ng/mL Thyroid Stimulating Hormone (TSH) 0.85 0.55-4.78 uIU/mL X-Ray, Labs, Meds, VS Comment CT abdomen shows Enlargement of the ventral abdominal wall hernia/defect containing multiple small and large bowel loops, increased from the prior exam. Small bowel transition point suspected within the hernia sac, with upstream dilation extending to the esophagus. Findings are consistent with at least partial high-grade small bowel obstruction. Recommend enteric decompression and further follow-up. Time of 1ST Reevaluation: 23:00 Reevaluation 1ST: Unchanged Consultation: PCP, Surgery Patient Education/Counseling: Diagnosis, Treatment, Prognosis, Need For Follow Up Family Education/Counseling: No Family Present SEPSIS Sepsis Screen Date sepsis recognized/suspect: Mar 03, 2025 Time Sepsis recognized/suspect: 2132 Recent Procedure: No On Antibiotic Therapy: No Respiratory Rate >20: No Heart Rate >90: No Temp<36 C (96.8 F) or >38.3 C: No SBP <90 or MAP <65 mmHG: No New Acute Mental Status Change: No Is the patient on CPAP, BIPAP,: No Physician Orders Per Assessment Nurse (03/03/25 ) Urinalysis (03/03/25 21:44) Npo Except For Medications (03/03/25 21:44) Npo (Nothing By Mouth) Diet (03/03/25 Breakfast) Ct Ab Pel Wo Con-No Oral Or Iv (03/03/25 21:44) * Surgical Consult (03/03/25 ) Admit (03/03/25 23:35) Code Status (03/03/25 23:35) Vital Signs .PER UNIT PROTOCOL (03/03/25 23:35) Review Orders With Adm.Md (03/03/25 23:35) Notify Md Of Changes From Base (03/03/25 23:35) Advance Directive (03/03/25 23:35) Patient Condition (03/03/25 23:35) Allergies (03/03/25 23:35) Stat Ekg For Chest Pain (03/03/25 23:35) Notify Md Of Changes From Base (03/03/25 23:35) Emergency Dysrhythmia Protocol (03/03/25 23:35) Rhythm Strips Once Every Shift (03/03/25 23:35) Vital Signs Date Time Temp Pulse Resp B/P (MAP) Pulse Ox O2 Delivery O2 Flow Rate FiO2 03/03/25 21:31 97.6 80 20 124/77 95 97.6 Laboratory Tests Test 03/03/25 21:56 Lactic Acid Level 0.6 mmol/L (0.4-2.0) White Blood Count 6.0 10^3/uL (4.4-10.8) Departure 1 Departure Time of Disposition: 22:43 Impression: Primary Impression: Small bowel obstruction Disposition: ADMITTED INPATIENT Admit to: Tele Condition: Guarded Discharged With: Self Comments Patient will be admitted to this facility for surgical consultation, management of SBO. Patient to be kept NPO Critical Care Note Critical Care Time?: Yes (35 min-critical care time only) Stability Stability form required: No JENNIFER THOMAS RESIDENT Mar 03, 2025 22:53
--- NOTE | 2025-03-03 23:36 | DVHHPRES ---
History of Present Illness Resident Creating Document: HAO GARCIA RESIDENT History of Present Illness Mr. Brooks is a 59-year-old male with prior medical history of abdominal hernias with multiple episodes of obstruction in the past, and Ehler Danlos Syndrome, who presents today with chief complaint of abdominal pain. he states he had sudden onset of nausea and vomiting today at 6:30 p.m. associated with formation of a palpable "knot" in umbilical region. This was associated with intermittent stabbing/cramping pain in umbilical region, 9/10 intensity, without aggravating or relieving factors. He states last bowel movement was in the morning and he is currently not passing gas. He denies fever, chest pain, chills, diaphoresis, blood in vomit, and other symptoms. Due to persistence of symptoms he presents to the ED. On evaluation in the ED, the patient was in distress, vitals are stable. Initial labs show microcytic anemia and chemical panel within normal range. Abdominal CT shows enlargement of the ventral abdominal wall hernia/defect containing multiple small and large bowel loops, increased from the prior exam, small bowel transition point suspected within the hernia sac, with upstream dilation extending to the esophagus. The patient was placed on NPO, started on IV fluids and IV pain regimen. He was admitted for further workup and monitoring. GI: Other (Abdominal hernias with multiple previous bowel obstructions) Past Medical History Omar-Danlos syndrome Past Surgical History: Other (Multiple hernia repairs gastric bypass surgery in 2017, stomach stent placement in 2023) Smoke: Quit (Smoked 1 pack a day for 8 years quit in 1991) ALCOHOL: none Drugs: None Lives: with Family Domestic Violence: Neg Review of Systems Review of Systems Constitutional: Denies weight loss, fever and chills. HEENT: Denies changes in vision and hearing. Respiratory: Denies shortness of breath and cough Cardiovascular: Denies chest discomfort or palpitations GI: Refers abdominal pain, Denies abdominal distention, bowel movement, gas : Denies dysuria and urinary frequency. Musculoskeletal: Refers localized back pain Skin: Denies rash and pruritus. Neurological: denies dizziness headache vision or hearing problems Allergies: Coded Allergies: NO KNOWN ALLERGIES (Unverified , 09/04/23) Exam Vital Signs Vital Signs Date Time Temp Pulse Resp B/P (MAP) Pulse Ox O2 Delivery O2 Flow Rate FiO2 03/03/25 21:31 97.6 80 20 124/77 95 97.6 Exam General: The patient alert and oriented in person place and time. Patient following commands HEENT: Normocephalic, atraumatic, normal reactive pupils, EOM intact, pink conjunctiva, pink moist mucous membrane Respiratory/pulmonary: Bilateral chest expansion, no pain on palpation of chest wall, clear lungs bilaterally, vesicular murmurs present in almost all lung werner, no associated crackles or wheezes. Cardiovascular: Normal RRR, normal S1 and S2, no murmurs Abdomen: Presence of large herniation in upper abdominal quadrants, abdomen nondistended, hyperactive bowel sounds present in umbilical region, decreased bowel sounds in lower quadrant, soft, pain on palpation in umbilical region, a nodule is palpated in umbilical region on the underside herniated mass, no palpable masses. Extremities: No deformities, there is no peripheral edema present at the lower extremities, normal pulses Skin: No rashes or pruritus, there is no sacral edema present at this time. Neurological: Intact cranial nerves with no focal neurologic deficits Labs/Xrays Labs Test 03/03/25 21:56 Range/Units White Blood Count 6.0 4.4-10.8 10^3/uL Red Blood Count 4.63 4.5-5.90 10^6/uL Hemoglobin 11.2 L 13.5-17.5 g/dL Hematocrit 34.7 L 41.0-53.0 % Mean Corpuscular Volume 74.8 L 80.0-100.0 fL Mean Corpuscular Hemoglobin 24.2 L 28.0-32.0 pg Mean Corpuscular Hemoglobin Concent 32.4 32.0-36.0 g/dL Red Cell Distribution Width 20.6 H 11.8-14.3 % Platelet Count 429 140-450 10^3/uL Mean Platelet Volume 7.1 6.9-10.8 fL Neutrophils (%) (Auto) 68.9 37.0-80.0 % Lymphocytes (%) (Auto) 19.8 10.0-50.0 % Monocytes (%) (Auto) 9.2 0.0-12.0 % Eosinophils (%) (Auto) 1.0 0.0-7.0 % Basophils (%) (Auto) 1.1 0.0-2.0 % Neutrophils # (Auto) 4.2 1.6-8.6 10 ^3/uL Lymphocytes # (Auto) 1.2 0.4-5.4 10 ^3/uL Monocytes # (Auto) 0.6 0-1.3 10 ^3/uL Eosinophils # (Auto) 0.1 0-0.8 10 ^3/uL Basophils # (Auto) 0.1 0-0.2 10 ^3/uL Nucleated Red Blood Cells 0.0 % Sodium Level 140 136-145 mmol/L Potassium Level 4.1 3.5-5.1 mmol/L Chloride Level 107 98-107 mmol/L Carbon Dioxide Level 23 20-31 mmol/L Anion Gap 10 5-15 Blood Urea Nitrogen 18 9-23 mg/dL Creatinine 0.91 0.700-1.30 mg/dL Glomerular Filtration Rate Calc 96 >90 mL/min BUN/Creatinine Ratio 19.8 10.0-20.0 Serum Glucose 88 74-106 mg/dL Lactic Acid Level 0.6 0.4-2.0 mmol/L Calcium Level 8.7 8.7-10.4 mg/dL Total Bilirubin 0.3 0.2-1.0 mg/dL Aspartate Amino Transferase (AST) 30 13-40 U/L Alanine Aminotransferase (ALT) 10 7-40 U/L Alkaline Phosphatase 117 H 46-116 U/L Troponin I High Sensitivity 3 L </=54 ng/L Total Protein 6.6 5.7-8.2 g/dL Albumin 3.9 3.2-4.8 g/dL Lipase 35 12-53 U/L SEPSIS Sepsis Screen Date sepsis recognized/suspect: Mar 03, 2025 Time Sepsis recognized/suspect: 2132 Recent Procedure: No On Antibiotic Therapy: No Respiratory Rate >20: No Heart Rate >90: No Temp<36 C (96.8 F) or >38.3 C: No SBP <90 or MAP <65 mmHG: No New Acute Mental Status Change: No Is the patient on CPAP, BIPAP,: No Physician Orders Tree Wrapper (03/03/25 ) Urinalysis (03/03/25 21:44) Npo Except For Medications (03/03/25 21:44) Npo (Nothing By Mouth) Diet (03/03/25 Breakfast) Ct Ab Pel Wo Con-No Oral Or Iv (03/03/25 21:44) * Surgical Consult (03/03/25 ) Vital Signs Date Time Temp Pulse Resp B/P (MAP) Pulse Ox O2 Delivery O2 Flow Rate FiO2 03/03/25 21:31 97.6 80 20 124/77 95 97.6 Laboratory Tests Test 03/03/25 21:56 Lactic Acid Level 0.6 mmol/L (0.4-2.0) White Blood Count 6.0 10^3/uL (4.4-10.8) Assessment/Plan Assessment/Plan Assessment and Plan: Possible Small Bowel Obstruction likely due to multiple adhesions Ventral Hernias, History of multiple failed repairs - Abdominal CT Enlargement of the ventral abdominal wall hernia / defect containing multiple small and large bowel loops, increased from the prior exam, small bowel transition point suspected within the hernia sac, with upstream dilation extending to the esophagus. Findings are consistent with at least partial high-grade small bowel obstruction. - NPO - NS 500 cc bolus - NS maintenance 75 cc/hr - Surgery has been consulted - Dilaudid 0.25 mg IV q 3 hours PRN - Patient refused NG tube insertion due to history of gastric bypass Microcytic Anemia likely due to chronic disease - Monitor H&H Ehler-Danlos Syndrome History of Daniela en Y gastric bypass surgery Diet: NPO DVT prophylaxis: Patient is ambulatory GI prophylaxis: Protonix 40 mg IV daily Case discussed with Dr. Dawkins Goals of care discussed with the patient for over 25 minutes. Full code. Plan discussed with: Patient, Other (Nurses) Date of Service: Mar 03, 2025 Billing Provider: MAGALI DAWKINS MD Common Visit Codes: [id number] INP/OBS CARE (HIGH) Secondary Visit Codes: [id number] CARE PLAN 30 MINUTES HAO GARCIA RESIDENT Mar 03, 2025 23:36 GRETEL POLLACK RESIDENT Mar 04, 2025 07:09
[2025-03-04] VITALS (9 sets, daily range): BP systolic 106–122; BP diastolic 66–69; PULSE 56–78; RESP 15–20; TEMP 97.8–98.3; O2SAT 96–100
[2025-03-04 00:18] LABS: INR 0.97 (0.9-1.15); Partial Thromboplastin Time 28.2 SEC (24.5-34.5); Prothrombin Time 10.3 sec (9.3-11.8)
[2025-03-04 00:37] LABS: Magnesium 2.1 mg/dL (1.6-2.6)
[2025-03-04] MEDS: HYDROmorphone HCL 2 MG/ML VL/or syr IV PRN (01:39)
[2025-03-04] MEDS: PANTOPRAZOLE 40 MG/10 ML VIAL INJ IV SCH (01:39)
[2025-03-04] MEDS: SODIUM CHLORIDE 0.9% 1,000 ML IV SCH (01:41)
[2025-03-04] MEDS: D5W 5% 1,000 ML IV ONE (01:45)
[2025-03-04] MEDS: SODIUM CHLORIDE 0.9% 500 ML IV ONE (01:48)
[2025-03-04] MEDS ORDERED: BUPR200T49 PO (04:12)
[2025-03-04 06:52] LABS: Hemoglobin 10.3 g/dL (13.5-17.5); Nucleated Red Blood Cells % 0.1 %
[2025-03-04 06:56] LABS: Hematocrit 31.1 % (41.0-53.0); Mean Corpuscular Hemoglobin 24.3 pg (28.0-32.0); Mean Corpuscular Volume 73.6 fL (80.0-100.0)
[2025-03-04 07:00] LABS: Potassium 3.6 mmol/L (3.5-5.1); Sodium 142 mmol/L (136-145)
[2025-03-04 07:01] LABS: Anion Gap 10 (5-15); Carbon Dioxide 22 mmol/L (20-31)
[2025-03-04 07:06] LABS: Glucose 79 mg/dL (74-106)
[2025-03-04 07:07] LABS: BUN/Creatinine Ratio 23.4 (10.0-20.0); Blood Urea Nitrogen 18 mg/dL (9-23)
[2025-03-04 07:08] LABS: Calcium 8.1 mg/dL (8.7-10.4); Chloride 110 mmol/L (98-107)
[2025-03-04 07:34] LABS: Amphetamine Screen, Urine Neg (NEGATIVE)
[2025-03-04 07:35] LABS: Barbiturate Scree,Urine Neg (NEGATIVE); Cannabinoid Screen, Urine Neg (NEGATIVE); Opiate Scree,Urine Pos (NEGATIVE)
[2025-03-04 07:43] LABS: Benzodiazephine Screen, Urine Neg (NEGATIVE); Cocaine Screen, Urine Neg (NEGATIVE); Phencyclidine Screen, Urine Neg (NEGATIVE)
[2025-03-04 07:45] LABS: Urine Protein, UAD Normal (Negative)
--- NOTE | 2025-03-04 12:42 | DVHINCON2 ---
Consultation - Surgical Date Seen: Mar 04, 2025 Referring Physician Reason for Consultation Partial small bowel obstruction History of Present Illness History of Present Illness Mr. Brooks is a 59-year-old male who presented to the ED yesterday after feeling like he was about to have a bowel obstruction. Patient has had many bowel obstructions in the past over 20, and has had multiple abdominal surgeries. States that he felt bloated and the bowel in his hernia felt rock hard, which led to vomiting. He had 3 emesis episodes yesterday. Today during my evaluation he states he has abdomen feels better, not rock hard and started passing flatus, but no bowel movement. Denies fevers, chills, changes in urinary habits. He has had multiple abdominal surgeries to include gastric bypass, ex lap with splenectomy, multiple hernia repairs with mesh. He has seeked help for his hernia, and even hernia specialty centers have declined him for surgery. 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 an d redo hernia repair with mesh Family and Social History Family and Social History Family history noncontributory Allergies and medications Allergies: Coded Allergies: NO KNOWN ALLERGIES (Unverified , 09/04/23) Home Meds Reported Medications Bupropion Hcl (Bupropion Hcl Er) 200 Mg Tab, 1 TAB PO BID 03/04/25 Spironolactone (Spironolactone) 25 Mg Tab, 1 TAB PO EOD, #90 TAB 1 Refill 12/21/24 Topiramate (Topiramate) 50 Mg Tab, 1 TAB PO BID 09/04/23 Pantoprazole Sodium Sesquihydr (Pantoprazole Sodium) 40 Mg Tab, 1 TAB PO BID 09/04/23 Review of systems Review of Systems: Deferred Examination Vital signs Vital Signs Date Time Temp Pulse Resp B/P (MAP) Pulse Ox O2 Delivery O2 Flow Rate FiO2 03/04/25 08:34 98.2 74 15 114/69 (84) 99 98.2 03/04/25 03:54 Room Air* 0 21 Medications Current Medications Medications (Trade) Dose Ordered Sig/Gabe Route PRN Reason Start Time Stop Time Status Last Admin Hydromorphone HCl (Dilaudid Injection) 0.25 mg Q3HPRN PRN IV SEVERE PAIN (7-10 PAIN SCALE) 03/04/25 00:15 03/04/25 06:50 Sodium Chloride 1,000 ml @ 75 mls/hr [id number] IV 03/04/25 00:15 Pantoprazole Sodium (Protonix) 40 mg DAILY IV 03/04/25 00:15 03/04/25 08:21 Laboratory Labs Test 03/04/25 06:13 03/04/25 03:02 03/03/25 21:56 03/03/25 03:02 Range/Units White Blood Count 4.2 #L 4.4-10.8 10^3/uL Red Blood Count 4.23 L 4.5-5.90 10^6/uL Hemoglobin 10.3 L 13.5-17.5 g/dL Hematocrit 31.1 #L 41.0-53.0 % Mean Corpuscular Volume 73.6 L 80.0-100.0 fL Mean Corpuscular Hemoglobin 24.3 L 28.0-32.0 pg Mean Corpuscular Hemoglobin Concent 32.9 32.0-36.0 g/dL Red Cell Distribution Width 20.2 H 11.8-14.3 % Platelet Count 366 140-450 10^3/uL Mean Platelet Volume 7.2 6.9-10.8 fL Neutrophils (%) (Auto) 64.9 37.0-80.0 % Lymphocytes (%) (Auto) 24.0 10.0-50.0 % Monocytes (%) (Auto) 8.6 0.0-12.0 % Eosinophils (%) (Auto) 1.2 0.0-7.0 % Basophils (%) (Auto) 1.3 0.0-2.0 % Neutrophils # (Auto) 2.7 1.6-8.6 10 ^3/uL Lymphocytes # (Auto) 1.0 0.4-5.4 10 ^3/uL Monocytes # (Auto) 0.4 0-1.3 10 ^3/uL Eosinophils # (Auto) 0.1 0-0.8 10 ^3/uL Basophils # (Auto) 0.1 0-0.2 10 ^3/uL Nucleated Red Blood Cells 0.1 % Sodium Level 142 136-145 mmol/L Potassium Level 3.6 3.5-5.1 mmol/L Chloride Level 110 H 98-107 mmol/L Carbon Dioxide Level 22 20-31 mmol/L Anion Gap 10 5-15 Blood Urea Nitrogen 18 9-23 mg/dL Creatinine 0.77 0.700-1.30 mg/dL Glomerular Filtration Rate Calc 102 >90 mL/min BUN/Creatinine Ratio 23.4 H 10.0-20.0 Serum Glucose 79 74-106 mg/dL Calcium Level 8.1 L 8.7-10.4 mg/dL Urine Opiates Screen Pos NEGATIVE Urine Fentanyl Screen Neg NEGATIVE Urine Barbiturates Screen Neg NEGATIVE Urine Phencyclidine Screen Neg NEGATIVE Urine Amphetamines Screen Neg NEGATIVE Urine Benzodiazepines Screen Neg NEGATIVE Urine Cocaine Screen Neg NEGATIVE Urine Cannabinoids Screen Neg NEGATIVE Prothrombin Time 10.3 9.3-11.8 sec Prothrombin Time INR 0.97 0.9-1.15 Activated Partial Thromboplast Time 28.2 24.5-34.5 SEC Hemoglobin A1c 5.1 <5.7 % A1C Lactic Acid Level 0.6 0.4-2.0 mmol/L Phosphorus Level 3.7 2.4-5.1 mg/dL Magnesium Level 2.1 1.6-2.6 mg/dL Total Bilirubin 0.3 0.2-1.0 mg/dL Aspartate Amino Transferase (AST) 30 13-40 U/L Alanine Aminotransferase (ALT) 10 7-40 U/L Alkaline Phosphatase 117 H 46-116 U/L Troponin I High Sensitivity 3 L </=54 ng/L Total Protein 6.6 5.7-8.2 g/dL Albumin 3.9 3.2-4.8 g/dL Lipase 35 12-53 U/L Vitamin B12 Level 1609 H 211-911 pg/mL Vitamin D 25-Hydroxy 45.6 30.0-100 ng/mL Thyroid Stimulating Hormone (TSH) 0.85 0.55-4.78 uIU/mL Urine Color Yellow Yellow Urine Clarity Clear Clear Urine pH 5.5 5.0-9.0 Urine Specific [place] 1.023 1.001-1.035 Urine Protein Normal Negative Urine Ketones 1+ H Negative Urine Blood Normal Negative /uL Urine Nitrite Negative Negative Urine Bilirubin Negative Negative Urine Urobilinogen Normal Negative mg/dL Urine Leukocyte Esterase Trace Negative /uL Urine Glucose Normal Normal mg/dL Examination: GENERAL:Normal, ABDOMEN:Abnormal (Nondistended, midline laparotomy scar, ventral hernia with loss of the domain, soft, depressible, nontender) Problem List/Assessment/Plan Problems: (1) Ventral incisional hernia with obstruction (2) Small bowel obstruction Assessment and Plan Mr. Brooks is a 59-year-old male who presented with partial small bowel obstruction due to recurrent ventral incisional hernia. He has had multiple abdominal surgeries and multiple failed mesh repairs, which has led to multiple small-bowel obstruction episodes. CT shows a large hernia defect with retracted rectus muscle laterally and loss of domain, hernia contains large bowel and small bowel, both small bowel and large bowel light up fully which indicate that they are not strangulated. Patient does not need emergent repair, we will proceed with nonoperative management, with NPO for the time being and small bowel follow-through in the morning. Patient is already passing flatus and not vomiting. 1. Maintain NPO for today 2. Small bowel follow-through in a.m. Plan discussed with Plan discussed with: Patient Visit Coding Surgery Date of Service if different f: Mar 04, 2025 Billing Provider: BIRDIE RUIZ MD Surgery Visit Codes: 56327 - INP CONSULT <110 MIN BIRDIE RUIZ MD Mar 04, 2025 12:42
--- NOTE | 2025-03-04 14:55 | DVHPNRES ---
Progress Note Date Seen: Mar 04, 2025 Resident Creating Document: ISMAEL HILL RESIDENT Has the PT tested + for MRSA If YES, has PT been informed?: No Medical Necessity Reason Pt with a Central, PICC or Fol: No Subjective Review of Systems Mr. Brooks is a 59-year-old male with prior medical history of abdominal hernias with multiple episodes of obstruction in the past, and Ehler Danlos Syndrome, who presents today with chief complaint of abdominal pain. he states he had sudden onset of nausea and vomiting today at 6:30 p.m. associated with formation of a palpable "knot" in umbilical region. This was associated with intermittent stabbing/cramping pain in umbilical region, 9/10 intensity, without aggravating or relieving factors. He states last bowel movement was in the morning and he is currently not passing gas. He denies fever, chest pain, chills, diaphoresis, blood in vomit, and other symptoms. Due to persistence of symptoms he presents to the ED. On evaluation in the ED, the patient was in distress, vitals are stable. Initial labs show microcytic anemia and chemical panel within normal range. Abdominal CT shows enlargement of the ventral abdominal wall hernia/defect containing multiple small and large bowel loops, increased from the prior exam, small bowel transition point suspected within the hernia sac, with upstream dilation extending to the esophagus. The patient was placed on NPO, started on IV fluids and IV pain regimen. He was admitted for further workup and monitoring. GI: Other (Abdominal hernias with multiple previous bowel obstructions) Past Medical History Omar-Danlos syndrome Past Surgical History: Other (Multiple hernia repairs gastric bypass surgery in 2016, stomach stent placement in 2023) Smoke: Quit (Smoked 1 pack a day for 8 years quit in 1991) ALCOHOL: none Drugs: None Lives: with Family Domestic Violence: Neg ROS: 03/04/2025: The patient was seen and examined by me at the bedside. Patient reported that he had started passing gas and felt better. Surgery on board an suggested Maintain NPO for today and Small bowel follow-through in a.m. Objective vital signs Vital Sign Date Time Temp Pulse Resp B/P (MAP) Pulse Ox O2 Delivery O2 Flow Rate FiO2 03/04/25 14:18 70 16 118/66 03/04/25 14:10 97.8 99 97.8 03/04/25 03:54 Room Air* 0 21 Total Intake and Output 03/03/25 03/03/25 03/04/25 15:00 23:00 07:00 Intake Total 0 ml Balance 0 ml medications Current Medications Medications Dose Ordered Sig/Gabe Route Start Time Stop Time Status Last Admin Dose Admin Hydromorphone HCl 0.25 mg Q3HPRN PRN IV 03/04/25 00:15 03/04/25 14:18 0.25 MG Sodium Chloride 1,000 ml @ 75 mls/hr [id number] IV 03/04/25 00:15 Pantoprazole Sodium 40 mg DAILY IV 03/04/25 00:15 03/04/25 08:21 40 MG Examination General: The patient alert and oriented in person place and time. Patient following commands HEENT: Normocephalic, atraumatic, normal reactive pupils, EOM intact, pink conjunctiva, pink moist mucous membrane Respiratory/pulmonary: Bilateral chest expansion, no pain on palpation of chest wall, clear lungs bilaterally, vesicular murmurs present in almost all lung werner, no associated crackles or wheezes. Cardiovascular: Normal RRR, normal S1 and S2, no murmurs Abdomen: Presence of large herniation in upper abdominal quadrants, abdomen nondistended, hyperactive bowel sounds present in umbilical region, decreased bowel sounds in lower quadrant, soft, pain on palpation in umbilical region, a nodule is palpated in umbilical region on the underside herniated mass, no palpable masses. Extremities: No deformities, there is no peripheral edema present at the lower extremities, normal pulses Skin: No rashes or pruritus, there is no sacral edema present at this time. 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 Findings are consistent with at least partial high-grade small bowel obstruction. - NPO - NS 500 cc bolus - NS maintenance 75 cc/hr - Surgery has been consulted - Dilaudid 0.25 mg IV q 3 hours PRN - Patient refused NG tube insertion due to history of gastric bypass -Surgery on board an suggested Maintain NPO for today and Small bowel follow- through in a.m. #Microcytic Anemia likely due to chronic disease - Monitor H&H #Ehler-Danlos Syndrome #History of Daniela en Y gastric bypass surgery Diet: NPO DVT prophylaxis: Patient is ambulatory GI prophylaxis: Protonix 40 mg IV daily Case discussed with Dr. Dawkins Goals of care discussed with the patient for over 25 minutes. Full code. Plan discussed with: Patient Date of Service: Mar 04, 2025 Billing Provider: ISMAEL HILL Common Visit Codes: [id number] INP/OBS CARE(HIGH) ISMAEL HILL Mar 04, 2025 14:55 MAGALI DAWKINS MD Mar 04, 2025 17:46
[2025-03-05 00:46] VITALS: BP 122/74; PULSE 61; RESP 16; TEMP 97.5; O2SAT 96
[2025-03-05 05:00] VITALS: BP 127/69; PULSE 51; RESP 16; O2SAT 97
[2025-03-05 07:48] LABS: Sodium 141 mmol/L (136-145)
[2025-03-05 07:49] LABS: Anion Gap 11 (5-15)
[2025-03-05 07:54] LABS: BUN/Creatinine Ratio 15.2 (10.0-20.0); Blood Urea Nitrogen 10 mg/dL (9-23); Glucose 78 mg/dL (74-106); Hemoglobin 10.5 g/dL (13.5-17.5)
[2025-03-05 07:56] LABS: Hematocrit 32.4 % (41.0-53.0); Mean Corpuscular Hemoglobin 24.3 pg (28.0-32.0); Mean Corpuscular Volume 74.7 fL (80.0-100.0); Nucleated Red Blood Cells % 0.1 %
[2025-03-05 08:03] LABS: Calcium 7.8 mg/dL (8.7-10.4); Carbon Dioxide 20 mmol/L (20-31); Chloride 110 mmol/L (98-107); Potassium 3.5 mmol/L (3.5-5.1)
[2025-03-05] MEDS ORDERED: GASTROGRAFIN 120 ML SOL ONE (08:21)
[2025-03-05 09:00] VITALS: BP 112/57; PULSE 63; RESP 17; TEMP 97.8; O2SAT 97
--- NOTE | 2025-03-05 11:54 | DVH ---
Procedure: XY SMALL BOWEL SERIES-W GASTROGRA Reason for study/Clinical History: SBO Comparison Study: CT CT AB PEL WO CON-NO ORAL OR IV on DOS: 03/03/25, XY KUB ABDOMEN SINGLE VIEW on DO S: 12/22/24, CT CT AB PEL WITH IV CON ONLY on DOS: 12/21/24, US ABDOMEN COMPLETE SONOGRAM on DOS: 4, CT CT AB PEL WO CON-NO ORAL OR IV on DOS: 09/04/23 Technique: Single contrast small bowel series performed. 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 Contrast is identified within the colon by 45 minutes. This represents a normal small bowel transit time.
[2025-03-05 13:38] VITALS: BP 120/72; PULSE 75; RESP 17; TEMP 98; O2SAT 96
[2025-03-05 17:00] VITALS: BP 127/78; PULSE 80; RESP 17; TEMP 98.2; O2SAT 97
--- NOTE | 2025-03-05 17:01 | DVHDSRES ---
Discharge Summary Date of Admission Resident Creating Document: ISMAEL HILL RESIDENT Mar 03, 2025 at 23:35 Date of Discharge: Mar 05, 2025 Admitting Diagnosis SBO Labs/Diagnostic Data: Laboratory Results Test 03/05/25 07:07 03/04/25 03:02 03/03/25 21:56 03/03/25 03:02 White Blood Count 3.3 10^3/uL (4.4-10.8) Red Blood Count 4.34 10^6/uL (4.5-5.90) Hemoglobin 10.5 g/dL (13.5-17.5) Hematocrit 32.4 % (41.0-53.0) Mean Corpuscular Volume 74.7 fL (80.0-100.0) Mean Corpuscular Hemoglobin 24.3 pg (28.0-32.0) Mean Corpuscular Hemoglobin Concent 32.5 g/dL (32.0-36.0) Red Cell Distribution Width 20.1 % (11.8-14.3) Platelet Count 369 10^3/uL (140-450) Mean Platelet Volume 7.3 fL (6.9-10.8) Neutrophils (%) (Auto) 69.8 % (37.0-80.0) Lymphocytes (%) (Auto) 21.4 % (10.0-50.0) Monocytes (%) (Auto) 6.3 % (0.0-12.0) Eosinophils (%) (Auto) 1.0 % (0.0-7.0) Basophils (%) (Auto) 1.5 % (0.0-2.0) Neutrophils # (Auto) 2.3 10 ^3/uL (1.6-8.6) Lymphocytes # (Auto) 0.7 10 ^3/uL (0.4-5.4) Monocytes # (Auto) 0.2 10 ^3/uL (0-1.3) Eosinophils # (Auto) 0 10 ^3/uL (0-0.8) Basophils # (Auto) 0 10 ^3/uL (0-0.2) Nucleated Red Blood Cells 0.1 % Sodium Level 141 mmol/L (136-145) Potassium Level 3.5 mmol/L (3.5-5.1) Chloride Level 110 mmol/L (98-107) Carbon Dioxide Level 20 mmol/L (20-31) Anion Gap 11 (5-15) Blood Urea Nitrogen 10 mg/dL (9-23) Creatinine 0.66 mg/dL (0.700-1.30) Glomerular Filtration Rate Calc 107 mL/min (>90) BUN/Creatinine Ratio 15.2 (10.0-20.0) Serum Glucose 78 mg/dL (74-106) Calcium Level 7.8 mg/dL (8.7-10.4) Urine Opiates Screen Pos (NEGATIVE) Urine Fentanyl Screen Neg (NEGATIVE) Urine Barbiturates Screen Neg (NEGATIVE) Urine Phencyclidine Screen Neg (NEGATIVE) Urine Amphetamines Screen Neg (NEGATIVE) Urine Benzodiazepines Screen Neg (NEGATIVE) Urine Cocaine Screen Neg (NEGATIVE) Urine Cannabinoids Screen Neg (NEGATIVE) Prothrombin Time 10.3 sec (9.3-11.8) Prothrombin Time INR 0.97 (0.9-1.15) Activated Partial Thromboplast Time 28.2 SEC (24.5-34.5) Hemoglobin A1c 5.1 % A1C (<5.7) Lactic Acid Level 0.6 mmol/L (0.4-2.0) Phosphorus Level 3.7 mg/dL (2.4-5.1) Magnesium Level 2.1 mg/dL (1.6-2.6) Total Bilirubin 0.3 mg/dL (0.2-1.0) Aspartate Amino Transferase (AST) 30 U/L (13-40) Alanine Aminotransferase (ALT) 10 U/L (7-40) Alkaline Phosphatase 117 U/L (46-116) Troponin I High Sensitivity 3 ng/L (</=54) Total Protein 6.6 g/dL (5.7-8.2) Albumin 3.9 g/dL (3.2-4.8) Lipase 35 U/L (12-53) Vitamin B12 Level 1609 pg/mL (211-911) Vitamin D 25-Hydroxy 45.6 ng/mL (30.0-100) Thyroid Stimulating Hormone (TSH) 0.85 uIU/mL (0.55-4.78) Urine Color Yellow (Yellow) Urine Clarity Clear (Clear) Urine pH 5.5 (5.0-9.0) Urine Specific [place] 1.023 (1.001-1.035) Urine Protein Normal (Negative) Urine Ketones 1+ (Negative) Urine Blood Normal /uL (Negative) Urine Nitrite Negative (Negative) Urine Bilirubin Negative (Negative) Urine Urobilinogen Normal mg/dL (Negative) Urine Leukocyte Esterase Trace /uL (Negative) Urine Glucose Normal mg/dL (Normal) Other Laboratory Tests 03/05/25 07:07 Brief Hx & Hospital Course: Mr. Brooks is a 59-year-old male with prior medical history of abdominal hernias with multiple episodes of obstruction in the past, and Ehler Danlos Syndrome, who presents today with chief complaint of abdominal pain. he states he had sudden onset of nausea and vomiting today at 6:30 p.m. associated with formation of a palpable "knot" in umbilical region. This was associated with intermittent stabbing/cramping pain in umbilical region, 9/10 intensity, without aggravating or relieving factors. He states last bowel movement was in the morning and he is currently not passing gas. He denies fever, chest pain, chills, diaphoresis, blood in vomit, and other symptoms. Due to persistence of symptoms he presents to the ED. On evaluation in the ED, the patient was in distress, vitals are stable. Initial labs show microcytic anemia and chemical panel within normal range. Abdominal CT shows enlargement of the ventral abdominal wall hernia/defect containing multiple small and large bowel loops, increased from the prior exam, small bowel transition point suspected within the hernia sac, with upstream dilation extending to the esophagus. The patient was placed on NPO, started on IV fluids and IV pain regimen. He was admitted for further workup and monitoring. GI: Other (Abdominal hernias with multiple previous bowel obstructions) Past Medical History Omar-Danlos syndrome Past Surgical History: Other (Multiple hernia repairs gastric bypass surgery in 2016, stomach stent placement in 2023) Smoke: Quit (Smoked 1 pack a day for 8 years quit in 1991) ALCOHOL: none Drugs: None Lives: with Family Domestic Violence: Neg Brief history of hospitalization: Pt came in with pain and a knot like feeling in his abdomen. In the hospital we did a Abdominal CT which showed enlargement of the ventral abdominal wall hernia / defect containing multiple small and large bowel loops, increased from the prior exam, small bowel transition point suspected within the hernia sac, with upstream dilation extending to the esophagus. Findings are consistent with at least partial high-grade small bowel obstruction. We kept the patient NPO and gave him fluids (NS 500 cc bolus) and NS maintenance 75 cc/hr. Patient refused NG tube insertion due to history of gastric bypass.Dilaudid 0.25 mg IV q 3 hours PRN was given. Surgery consult was done andthey asked to keep the patient NPO for a day and then today morning 03/05/25 a small bowel follow through was ordered by them and done. Patient reported feeling better and passing stool multiple times. he is now feeling better and stable for discharge. General: The patient alert and oriented in person place and time. Patient following commands HEENT: Normocephalic, atraumatic, normal reactive pupils, EOM intact, pink conjunctiva, pink moist mucous membrane Respiratory/pulmonary: Bilateral chest expansion, no pain on palpation of chest wall, clear lungs bilaterally, vesicular murmurs present in almost all lung werner, no associated crackles or wheezes. Cardiovascular: Normal RRR, normal S1 and S2, no murmurs Abdomen: Presence of large herniation in upper abdominal quadrants, abdomen nondistended, hyperactive bowel sounds present in umbilical region, decreased bowel sounds in lower quadrant, soft, pain on palpation in umbilical region, a nodule is palpated in umbilical region on the underside herniated mass, no palpable masses. Extremities: No deformities, there is no peripheral edema present at the lower extremities, normal pulses Skin: No rashes or pruritus, there is no sacral edema present at this time. Neurological: Intact cranial nerves with no focal neurologic deficits Operations or Procedures Exam: CT CT AB PEL WO CON-NO ORAL OR IV History: abd pain h/o sbo IMPRESSION: Enlargement of the ventral abdominal wall hernia/defect containing multiple small and large bowel loops, increased from the prior exam. Small bowel transition point suspected within the hernia sac, with upstream dilation extending to the esophagus. Findings are consistent with at least partial high- grade small bowel obstruction. Recommend enteric decompression and further follow-up. Radiation optimization: All CT scans at this facility use at least one of these dose optimization techniques: automated exposure control mA and/or kV adjustment per patient size (includes targeted exams where dose is matched to clinical indication) or iterative reconstruction. 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 Contrast is identified within the colon by 45 minutes. This represents a normal small bowel transit time. Condition at Discharge: Stable Final Diagnosis/Problems List ventral hernia sbo Discharge Disposition: Home Discharge Instruct/Medications Diet: Consistent carbohydrate, Cardiac 2g Na,low cholest Activity: No Restrictions, As Tolerated Follow Up/Referral: dc clinic Scheduled Bupropion Hcl (Bupropion Hcl Er), 1 TAB PO BID, (Reported) Pantoprazole Sodium Sesquihydr (Pantoprazole Sodium), 1 TAB PO BID, (Reported) Spironolactone (Spironolactone), 1 TAB PO EOD, (Reported) Topiramate (Topiramate), 1 TAB PO BID, (Reported) Discharge Statement: "Patient was advised to return to the ER or call 911 if any headaches, dizziness, shortness of breath, chest pain, abdominal pain, bleeding, fevers, or worsening of medical condition. Patient was counseled about treatment plan, medications, possible side effects, patientverbalized understanding. All questions were answered to the best of my ability. This discharge took greater then 30 minutes in planning, reviewing documentation, counseling the patient, and discussing with other team members." ASSESSMENT ASSESSMENT Assessment ventral hernia sbo Date of Service: Mar 05, 2025 Billing Provider: MAGALI ALFONSO MD Common Visit Codes: [id number] DISCH DAY >30min ISMAEL HILL Mar 05, 2025 17:01 MAGALI ALFONSO MD Mar 05, 2025 20:05
--- NOTE | 2025-03-05 22:55 | DVHPN2 ---
Progress Note - Surgical Date Seen: Mar 05, 2025 Post op day Post op day: 0 Subjective Review of Systems: Deferred Objective Vital signs Vital Sign Date Time Temp Pulse Resp B/P (MAP) Pulse Ox O2 Delivery O2 Flow Rate FiO2 03/05/25 17:00 98.2 80 17 127/78 (94) 97 98.2 03/05/25 08:00 Room Air* 0 21 Total Intake and Output 03/04/25 03/04/25 03/05/25 15:00 23:00 07:00 Intake Total 0 ml 0 ml Balance 0 ml 0 ml Laboratory Laboratory Tests 03/05/25 07:07 Test 03/05/25 07:07 Range/Units Serum Glucose 78 74-106 mg/dL Examination: ABDOMEN:Normal (Nondistended, soft, depressible, midline scar, large ventral hernia with loss of the main, nontender) Labs and/or images reviewed: Labs reviewed by me Problem List/Assessment/Plan Assessment and Plan Mr. Brooks is a 59-year-old male who presented with partial small bowel obstruction due to recurrent ventral incisional hernia. He has had multiple abdominal surgeries and multiple failed mesh repairs, which has led to multiple small-bowel obstruction episodes. CT shows a large hernia defect with retracted rectus muscle laterally and loss of domain, hernia contains large bowel and small bowel, both small bowel and large bowel light up fully which indicate that they are not strangulated. Patient does not need emergent repair, we will proceed with nonoperative management, with NPO for the time being and small bowel follow-through in the morning. Patient is already passing flatus and not vomiting. Interval: Small bowel follow-through done today, with normal transit time of contrast into the large intestine, in 45 minutes. Patient should be started on a diet and if tolerated he can be discharged. Plan discussed with Plan discussed with: Patient Visit Coding Surgery Date of Service if different f: Mar 05, 2025 Billing Provider: BIRDIE RUIZ MD Surgery Visit Codes: [id number] INP/OBS CARE(HIGH) BIRDIE RUIZ MD Mar 05, 2025 22:55
== END 2025-03-05 17:27 | disposition home or self-care (01) | DRG 389 ==
LOC: ER 21:29 → OVERFLOW 23:35 → WEST WING 03-04 03:20
PROVIDERS: ADMIT Student in an Organized Health Care Education/Training Program; ATTEND Student in an Organized Health Care Education/Training Program
DX: K56.51 Intestinal adhesions [bands], with partial obstruction (principal); Q79.60 Ehlers-Danlos syndrome, unspecified; K43.9 Ventral hernia without obstruction or gangrene; D50.9 Iron deficiency anemia, unspecified; E66.01 Morbid (severe) obesity due to excess calories; Z98.84 Bariatric surgery status; Z90.81 Acquired absence of spleen; Z87.442 Personal history of urinary calculi; Z87.891 Personal history of nicotine dependence; Z86.14 Personal history of Methicillin resistant Staphylococcus aureus infection; Z68.28 Body mass index [BMI] 28.0-28.9, adult; Z79.899 Other long term (current) drug therapy
CPT/HCPCS: 36415; 74176; 74250; 80048; 80053; 80307; 81003; 82306; 82607; 83036; 83605; 83690; 83735; 84100; 84443; 84484; 85025; 85610; 85730; 99291; G0378; J2470

== ENCOUNTER 2025-04-11 16:23 | Emergency (ER) | payer BC, MEDICARE ==
[~2025-04-11] VITALS: Ht 170.2 cm; Wt 79.4 kg
[~2025-04-11 16:23] MED LIST changes: +BUPR200T49 PO; -HYDR-4072 PO
--- NOTE | 2025-04-11 16:40 | ECG ---
[facility] Test Date: 2025-04-11 Test Time: 16:35:50 Pat Name: MIHAI CASON Department: ED Room: Gender: M Manager Utilization Management: GP : [id number] Requested By: MIC LIAO Order Number: [id number] Reading MD: Marquise Thompson Measurements Intervals [place] Rate: 66 P: 51 MO: 188 QRS: 2 QRSD: 98 T: 33 QT: 415 QTc: 435 Interpretive Statements Sinus rhythm Ventricular premature complex Abnormal R-wave progression, early transition Baseline wander in lead(s) V2 Electronically Signed On 04-14-2025 17:53:36 PST by Marquise Thompson Please click the below link to view image of tracing.
[2025-04-11 17:44] LABS: Hematocrit 34.6 % (41.0-53.0); Hemoglobin 11.3 g/dL (13.5-17.5); Mean Corpuscular Hemoglobin 24.0 pg (28.0-32.0); Mean Corpuscular Volume 73.7 fL (80.0-100.0); Nucleated Red Blood Cells % 0.0 %
[2025-04-11 17:52] LABS: Potassium 3.6 mmol/L (3.5-5.1); Sodium 142 mmol/L (136-145)
[2025-04-11 17:53] LABS: Anion Gap 12 (5-15); Calcium 8.8 mg/dL (8.7-10.4); Carbon Dioxide 21 mmol/L (20-31)
[2025-04-11 17:57] LABS: Chloride 109 mmol/L (98-107)
--- NOTE | 2025-04-11 17:57 | ED.PDOC ---
History of Present Illness HPI Comments [age] year old female presents to the ER with prior medical history of large abdominal hernia: Surgical history of bypass surgery in the chief complaint of abdominal pain patient reports not having had three abdominal blockages in the past, and having had a sudden onset of diarrhea associated with nausea and vomiting for which all started yesterday. Patient is currently complaining of diffuse abdominal pain. Denies any other symptoms at this time. Denies chills, fever, N/V/D, SOB, CP. No other associated symptoms, modifiers, recent injuries or sick contacts present at this time. Chief Complaint: Nausea/Vomiting Time Seen by MD: 17:25 Primary Care Provider: STACEY Villegas Notes: Nurses Notes, Medications, Allergies Allergies: Coded Allergies: NO KNOWN ALLERGIES (Unverified , 09/04/23) Home Meds Reported Medications Bupropion Hcl (Bupropion Hcl Er) 200 Mg Tab, 1 TAB PO BID 03/04/25 Spironolactone (Spironolactone) 25 Mg Tab, 1 TAB PO EOD, #90 TAB 1 Refill 12/21/24 Topiramate (Topiramate) 50 Mg Tab, 1 TAB PO BID 09/04/23 Pantoprazole Sodium Sesquihydr (Pantoprazole Sodium) 40 Mg Tab, 1 TAB PO BID 09/04/23 Information Source: Patient Mode of Arrival: Ambulatory Severity: Moderate Timing: Hours Duration: Since onset, Hours Prehospital treatment: None Past Medical History Past Medical History (Other): Three abdominal blockages in the past, large abdominal hernia Surgical History: Hernia Repair Surgical History (Other): Bypass surgery Family History Family History: Reviewed,noncontributory to illness, Unknown Social History Smoker: Non-Smoker Alcohol: Denies ETOH Use Drugs: Denies Drug Use Lives In: Home Constitutional: denies: chills, diaphoresis, fatigue, fever, malaise, sweats, weakness, others EENTM: denies: blurred vision, double vision, ear bleeding, ear discharge, ear drainage, ear pain, ear ringing, eye pain, eye redness, hearing loss, mouth pain, mouth swelling, nasal discharge, nose bleeding, nose congestion, nose pain, photophobia, tearing, throat pain, throat swelling, voice changes, others Respiratory: denies: cough, hemoptysis, orthopnea, SOB at rest, shortness of breath, SOB with excertion, stridor, wheezing, others Cardiovascular: denies: chest pain, dizzy spells, diaphoresis, Dyspnea on exertion, edema, irregular heart beat, left arm pain, lightheadedness, palpitations, PND, syncope, others Gastrointestinal: reports: abdominal pain, diarrhea, nausea, vomiting; denies: abdomen distended, blood streaked bowels, constipated, dysphagia, difficulty swallowing, hematemesis, melena, poor appetite, poor fluid intake, rectal bleeding, rectal pain, others Genitourinary: denies: burning, dysuria, flank pain, frequency, hematuria, incontinence, penile discharge, penile sore, pain, testicle pain, testicle swelling, urgency, others Neurological: denies: dizziness, fainting, headache, left sided numbness, left sided weakness, numbness, paresthesia, pre-existing deficit, right sided numbness, right sided weakness, seizure, speech problems, tingling, tremors, weakness, others Musculoskeletal: denies: back pain, gout, joint pain, joint swelling, muscle pain, muscle stiffness, neck pain, others Integumetry: denies: bruises, change in color, change in hair/nails, dryness, laceration, lesions, lumps, rash, wounds, others Allergic/Immunocompromised: denies: Difficulty Healing, Frequent Infections, Hives, Itching, others Hematologic/Lymphatic: denies: anemia, blood clots, easy bleeding, easy bruising, swollen glands, others Endocrine: denies: excessive hunger, excessive sweating, excessive thirst, excessive urination, flushing, intolerance to cold, intolerance to heat, unexplained weight gain, unexplained weight loss, others Psychiatric: denies: anxiety, bipolar disorder, depression, hopeless, panic disorder, schizophrenia, sleepless, suicidal, others All Other Systems: Reviewed and Negative Physical Exam Exam Comments Large abdominal hernia, diffuse abdominal pain General Appearance: No Apparent Distress, Normal HEENT: Normal ENT Inspection, Pharynx Normal, TMs Normal Neck: Full Range of Motion, Non-Tender, Normal, Normal Inspection Respiratory: Chest Non-Tender, Lungs Clear, No Accessory Muscle Use, No Respiratory Distress, Normal Breath Sounds Cardiovascular: No Edema, No JVD, No Murmur, No Gallop, Normal Peripheral Pulses, Regular Rate/Rhythm Breast Exam: Deferred Gastrointestinal: No Organomegaly, Non Tender, No Pulsatile Mass, Normal Bowel Sounds, Soft Genitalia: Deferred Pelvic: Deferred Rectal: Deferred Extremities: No calf tenderness, Normal capillary refill, Normal inspection, Normal range of motion, Non-tender, No pedal edema Musculoskeletal : Apperance: Normal 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 Was a procedure done?: No EKG EKG : Pulse Rate (adult): 66 [place]: Normal Cardiac Rhythm: NSR Block: None Hypertrophy: None ST: Normal Differential Dx Considerations may include: sbo, gastroenteritis, gastritis. X-Ray, Labs, Meds, VS Vital Signs Date Time Temp Pulse Resp B/P (MAP) Pulse Ox O2 Delivery O2 Flow Rate FiO2 04/11/25 17:57 66 04/11/25 16:35 66 04/11/25 16:24 98.1 63 20 138/86 99 98.1 Lab Test 04/11/25 17:24 Range/Units White Blood Count 5.9 4.4-10.8 10^3/uL Red Blood Count 4.70 4.5-5.90 10^6/uL Hemoglobin 11.3 L 13.5-17.5 g/dL Hematocrit 34.6 L 41.0-53.0 % Mean Corpuscular Volume 73.7 L 80.0-100.0 fL Mean Corpuscular Hemoglobin 24.0 L 28.0-32.0 pg Mean Corpuscular Hemoglobin Concent 32.5 32.0-36.0 g/dL Red Cell Distribution Width 18.9 H 11.8-14.3 % Platelet Count 364 140-450 10^3/uL Mean Platelet Volume 7.1 6.9-10.8 fL Neutrophils (%) (Auto) 66.2 37.0-80.0 % Lymphocytes (%) (Auto) 23.6 10.0-50.0 % Monocytes (%) (Auto) 8.3 0.0-12.0 % Eosinophils (%) (Auto) 0.6 0.0-7.0 % Basophils (%) (Auto) 1.3 0.0-2.0 % Neutrophils # (Auto) 3.9 1.6-8.6 10 ^3/uL Lymphocytes # (Auto) 1.4 0.4-5.4 10 ^3/uL Monocytes # (Auto) 0.5 0-1.3 10 ^3/uL Eosinophils # (Auto) 0 0-0.8 10 ^3/uL Basophils # (Auto) 0.1 0-0.2 10 ^3/uL Nucleated Red Blood Cells 0.0 % Sodium Level 142 136-145 mmol/L Potassium Level 3.6 3.5-5.1 mmol/L Chloride Level 109 H 98-107 mmol/L Carbon Dioxide Level 21 20-31 mmol/L Anion Gap 12 5-15 Blood Urea Nitrogen 20 9-23 mg/dL Creatinine 0.89 0.700-1.30 mg/dL Glomerular Filtration Rate Calc 98 >90 mL/min BUN/Creatinine Ratio 22.5 H 10.0-20.0 Serum Glucose 84 74-106 mg/dL Calcium Level 8.8 8.7-10.4 mg/dL Time of 1ST Reevaluation: 17:55 Reevaluation 1ST: Unchanged Time of 2ND Reevaluation: 18:36 (Discussed the case with gen surgery who says patient must be transferred and they will not operate on patient if anything bad happens.) Reevaluation 2ND: Unchanged Patient Education/Counseling: Diagnosis, Treatment, Prognosis Family Education/Counseling: No Family Present SEPSIS Sepsis Screen Date sepsis recognized/suspect: Apr 11, 2025 Time Sepsis recognized/suspect: 1625 Recent Procedure: No On Antibiotic Therapy: No Respiratory Rate >20: No Heart Rate >90: No Temp<36 C (96.8 F) or >38.3 C: No SBP <90 or MAP <65 mmHG: No New Acute Mental Status Change: No Is the patient on CPAP, BIPAP,: No Physician Orders Urinalysis (04/11/25 17:08) Sodium Chloride 0.9% (04/11/25 17:30) Ct Ab Pel Wo Con-No Oral Or Iv (04/11/25 17:27) Vital Signs Date Time Temp Pulse Resp B/P (MAP) Pulse Ox O2 Delivery O2 Flow Rate FiO2 04/11/25 17:57 66 04/11/25 16:35 66 04/11/25 16:24 98.1 63 20 138/86 99 98.1 Laboratory Tests Test 04/11/25 17:24 White Blood Count 5.9 10^3/uL (4.4-10.8) Departure 1 Departure Time of Disposition: 18:30 (Patient presented with abdominal pain that was concerning for possible appendicits, gastritis, cholecystitis, colitis, gastroenteritis, sbo, or orther possible surgical emergency. Data: 1. I ordered and reviewed the result of at least 3 labs including a CBC, BMP, and Urinalysis. 2. I independently interpreted the following tests: CT Abdomen and Pelvis is concerning for small bowel obstruction .Risk:This patient has a high risk of morbidity due to further diagnostic testing or treatment and may suffer from an acute abdominal process disorder. Workup reveals small-bowel obstruction and patient should be admitted for further workup. and possible expert consultation. ) Impression: Primary Impression: Small bowel obstruction Additional Impression: History of Daniela-en-Y gastric bypass Disposition: 02 [facility]ORT TERM [facility] Condition: Guarded Critical Care Note Critical Care Time?: Yes Critical care comment: Intractable abdominal pain, small-bowel obstruction Authorized and Performed by: Mic Liao MD Total critical care time: Approximately 37 minutes Due to a high probability of clinically significant, life threatening det erioration, the patient required my highest level of preparedness to intervene emergently and I personally spent this critical care time directly and personally managing the patient. This critical care time included obtaining a history; examining the patient; pulse oximetry; ordering and review of studies; arranging urgent treatment with development of a management plan; evaluation of patient's response to treatment; frequent reassessment; and, discussions with other providers. This critical care time was performed to assess and manage the high probability of imminent, life-threatening deterioration that could result in multi-organ failure. It was exclusive of separately billable procedures and treating other patients and teaching time. Please see my other sections and the rest of the note for further information on patient assessment and treatment. Stability Stability form required: No I personally scribed for MIC LIAO MD ([email or web address]) on 04/11/25 at 17:57. Electronically submitted by Nathaniel Davis ([email or web address]). MIC LIAO MD Apr 11, 2025 17:57
[2025-04-11 17:58] LABS: BUN/Creatinine Ratio 22.5 (10.0-20.0); Blood Urea Nitrogen 20 mg/dL (9-23); Glucose 84 mg/dL (74-106)
--- NOTE | 2025-04-11 18:21 | DVH ---
COMPUTERIZED TOMOGRAPHY ABDOMEN AND PELVIS WITHOUT CONTRAST REASON FOR EXAM: abdominal pain, sbo COMPARISON: CT CT AB PEL WO CON-NO ORAL OR IV on DOS: 03/03/25, CT CT AB PEL WO CON-NO ORAL OR IV on DOS: 09/04/23, CT CT AB PEL WO CON-NO ORAL OR IV on DOS: 06/27/23 TECHNIQUE: Spiral scans were acquired from the diaphragm to the symphysis pubis without intravenous contrast administration. 2-D coronal and sagittal reformatted images were provided. Radiation optimization: All CT scans at this facility use at least one of these dose optimization techniques: Automated exposure control mA and/or kV adjustment per patient size (includes targeted exams where dose is matched to clinical indication) or iterative reconstruction. RADIATION DOSE: CTDI: 10.28 mGy DLP: 498.33 mGy-cm FINDINGS: The lungs are hyperinflated. There is no pleural effusion. There is no significant pericardial effusion. There is a hiatal hernia containing fluid and aspiration precautions are recommended. The spleen is not enlarged. There is gastric bypass anatomy. The liver is borderline enlarged at 16.9 cm in length. Evaluation of the abdominal organs is suboptimal in the absence of intravenous contrast. The gallbladder is mostly collapsed. No calcified gallstone is identified. Unenhanced appearance of the pancreas is grossly unremarkable. The adrenal glands appear normal. The kidneys are similar in size. There is a 3.7 cm simple cyst at the inferior pole of the left kidney that requires no dedicated follow-up. There is no hydronephrosis of either kidney. There is no abdominal aortic aneurysm. 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 The urinary bladder is within normal limits. The prostate is enlarged. The sigmoid colon is redundant. The colonic stool burden is small. The appendix is not seen. There is no pericecal inflammatory change to suggest acute appendicitis. There is extensive repair of the low anterior abdominal wall. There is a complex ventral hernia containing a portion of the transverse colon, and loops of small bowel. There is severe dilation of the proximal small bowel up to 8.1 cm with a transition point within the ventral Hernia consistent with high-grade small bowel obstruction. No free fluid is identified in the abdomen or pelvis. There is no pathologic lymphadenopathy by size criteria. No acute osseous abnormality is identified. There is severe degenerative change in the visualized thoracic spine with confluence ventral osteophytosis and ankylosis of multiple vertebral bodies. IMPRESSION: High-grade small-bowel obstruction with a transition point within the complex ventral abdominal wall hernia. Gastric bypass anatomy. Fluid within the hiatal hernia. Aspiration precautions are recommended.
[2025-04-11] MEDS: SODIUM CHLORIDE 0.9% 1,000 ML IV ONE (18:29)
[2025-04-11] MEDS: ONDANSETRON HCL 4 MG/2 ML VIAL IV ONE ×2 (18:42→21:34)
[2025-04-11] MEDS: MORPHINE SULFATE 4 MG/ML SYR/VIAL IV ONE (18:43)
[2025-04-11 19:28] LABS: Urine Protein, UAD TRACE (Negative)
[2025-04-11 19:50] VITALS: PULSE 82; RESP 18; O2SAT 97
[2025-04-11] MEDS: fentaNYL CITRATE 100 MCG/2 ML VL IV ONE (21:27)
[2025-04-11 22:51] VITALS: BP 123/82; PULSE 83; RESP 18; TEMP 98.1; O2SAT 97
--- NOTE | 2025-04-11 22:51 | DVH ---
CHEST RADIOGRAPH Indication: ng tube placement Technique: 2 views Comparison: XY CHEST PORTABLE on DOS: 01/13/25, XY CHEST PORTABLE on DOS: 12/21/24 FINDINGS: Lines and Tubes: Enteric tube terminates over the left upper quadrant. Lungs/Pleura: No focal consolidation, pleural effusion or pneumothorax. Cardiomediastinum: Unremarkable. Other: No acute osseous abnormality. IMPRESSION: 1. No acute cardiopulmonary abnormality. 2. Adequately positioned enteric tube.
== END 2025-04-11 23:30 | disposition short-term general hospital (02) ==
LOC: ER 16:23
DX: K56.609 Unspecified intestinal obstruction, unspecified as to partial versus complete obstruction (principal); Z46.59 Encounter for fitting and adjustment of other gastrointestinal appliance and device; Z98.890 Other specified postprocedural states; Z98.84 Bariatric surgery status; Z79.899 Other long term (current) drug therapy
CPT/HCPCS: 36415; 71045; 74176; 80048; 81001; 85025; 93005; 96361; 96374; 96375; 96376; 99291; J2270; J2405; J3010; J7030